=== PATIENT | female | born 1990 | race African-American/Black ===

== ENCOUNTER 2016-12-12 16:56 | Emergency (ER) | payer OTHER ==
[~2016-12-12] VITALS: Ht 175.3 cm; Wt 134.0 kg
[~2016-12-12 16:56] MED LIST: IBUP-232 PO; MACR100C2 PO; NAPR550T3 PO
[2016-12-12 16:58] VITALS: BP 129/66; PULSE 84; RESP 15; TEMP 98.1; O2SAT 98
--- NOTE | 2016-12-12 17:25 | PD ---
HPI Chief Complaint: Skin Problem Time Seen by Provider: 17:25 Travel History International Travel<30 days: No Contact w/Intl Traveler<30days: No Traveled to known affect area: No History of Present Illness HPI 26-year-old Afro-[place] female coming in with approximately one week history of a sore swollen area under the right axilla. Patient states is gotten progressively worse over the past week. Patient denies fever, chills, erythema , or drainage. His approximate size of an almond. Pain today is 6 out of 10. Patient is allergic to penicillin and apples. PFSH Past Medical History Depression: Yes Cardiovascular Problems: Yes (HTN) Diabetes: Yes (BORDERLINE) Diminished Hearing: No Hypertension: Yes Psychiatric: Yes (MOOD DISORDER) Immunizations Current: Yes ?: Not LMP: 12/12/2016 : 0 Social History Alcohol Use: No Tobacco Use: No Substance Use: No Allergies-Medications (Allergen,Severity, Reaction): Coded Allergies: Apple (Verified Allergy, Intermediate, RASH, 12/12/16) All over body Penicillin (Verified Allergy, Intermediate, SWELLING/RASH, 12/12/16) all over body Reported Meds & Prescriptions Reported Meds & Active Scripts Active Naproxen Sodium DS (Naproxen Sodium) 550 Mg Tab 550 Mg PO BID Macrobid (Nitrofurantoin Monoh/Nitrofur Macro) 100 Mg Cap 100 Mg PO BID 5 Days Ibuprofen 600 Mg Tab 600 Mg PO Q8HR PRN Review of Systems Except as stated in HPI: all other systems reviewed are Neg General / Constitutional: No: Fever Eyes: No: Visual changes HENT: No: Headaches Cardiovascular: No: Chest Pain or Discomfort Respiratory: No: Shortness of Breath Gastrointestinal: No: Abdominal Pain Genitourinary: No: Dysuria Musculoskeletal: No: Pain Skin: No Rash Neurologic: No: Weakness Psychiatric: No: Depression Endocrine: No: Polydipsia Hematologic/Lymphatic: No: Easy Bruising Physical Exam Narrative GENERAL: Patient appears no acute distress. SKIN: Warm and dry. Normal color. Normal turgor. Patient has an indurated firm tender lesion under the lower right axilla without significant erythema or pointing. There is no obvious drainage. There is no localized lymphadenopathy. HEAD: Atraumatic. Normocephalic. EYES: Pupils equal and round. No scleral icterus. No injection or drainage. ENT: No nasal bleeding or discharge. Mucous membranes pink and moist. Pharynx is normal. Airway is patent. NECK: Trachea midline. Supple and nontender. CARDIOVASCULAR: Regular rate and rhythm. RESPIRATORY: No accessory muscle use. Clear to auscultation. Breath sounds equal bilaterally. MUSCULOSKELETAL: Extremities without clubbing, cyanosis, or edema. No obvious deformities. NEUROLOGICAL: Awake and alert. No obvious cranial nerve deficits. Motor grossly within normal limits. Five out of 5 muscle strength in the arms and legs. Normal speech. PSYCHIATRIC: Appropriate mood and affect; insight and judgment normal. Data Data Last Documented VS Vital Signs Date Time Temp Pulse Resp B/P Pulse Ox O2 Delivery O2 Flow Rate FiO2 12/12/16 16:58 98.1 84 15 129/66 98 MDM Medical Decision Making Medical Screen Exam Complete: Yes Emergency Medical Condition: Yes Differential Diagnosis Ingrown hair. Folliculitis. Cellulitis. Early abscess. Narrative Course Patient is medically stable at time of exam. Discussed with patient that I feel a trial of antibiotics and anti- inflammatories would be warranted at this time. Discuss with her that this may help consolidate the problem and bring it to a head for drainage. It may also get better without drainage. Patient is understanding this and agrees with that plan. Patient is given Bactrim DS twice a day 7 days. Patient is given ibuprofen 600 mg 4 times a day #40. Patient is to use hot compresses as discussed. Patient follow-up with her primary care physician or return to emergency department if symptoms do not improve or worsen as discussed. Diagnosis Primary Impression: Ingrown hair Patient Instructions: Abscess (ED), Folliculitis (ED), General Instructions Additional Instructions: Discussed with patient that I feel a trial of antibiotics and anti- inflammatories would be warranted at this time. Discuss with her that this may help consolidate the problem and bring it to a head for drainage. It may also get better without drainage. Patient is understanding this and agrees with that plan. Patient is given Bactrim DS twice a day 7 days. Patient is given ibuprofen 600 mg 4 times a day #40. Patient is to use hot compresses as discussed. Patient follow-up with her primary care physician or return to emergency department if symptoms do not improve or worsen as discussed. Med/Other Pt SpecificInfo: Prescription(s) given Disposition: 01 DISCHARGE HOME Condition: Stable Vito Rubyw F. PA Dec 12, 2016 17:25
[2016-12-12] MEDS ORDERED: IBUP-232 PO (17:45)
[2016-12-12] MEDS ORDERED: BACT800T5 PO (17:45)
== END 2016-12-12 18:24 | disposition home or self-care (01) ==
LOC: NEPB 16:56
DX: L73.8 Other specified follicular disorders (principal); I10 Essential (primary) hypertension
CPT/HCPCS: 99283

== ENCOUNTER 2017-03-07 07:14 | Emergency (ER) | payer OTHER ==
[~2017-03-07] VITALS: Ht 175.3 cm; Wt 109.0 kg
[~2017-03-07 07:14] MED LIST changes: +BACT800T5 PO
[2017-03-07 07:16] VITALS: BP 135/80; PULSE 65; RESP 18; TEMP 98.1; O2SAT 98
--- NOTE | 2017-03-07 07:27 | PD ---
HPI . dysuria, pressure and frequency x 2 days Chief Complaint: Complaint Time Seen by Provider: 07:27 Travel History International Travel<30 days: No Contact w/Intl Traveler<30days: No Traveled to known affect area: No History of Present Illness HPI 26-year-old female here with complaints of dysuria, pressure and urinary frequency for the past 2 days. Patient tells me she has had UTIs in the past and her symptoms feel similar. She says 2 days ago she started experiencing some suprapubic pressure and increased urinary frequency. She does admit to some discomfort while urinating. She denies any vaginal discharge. She does not think she is , however tells me that she could potentially be. She has no other complaints. She denies any abdominal pain, nausea, vomiting, fever or chills. PFSH Past Medical History Depression: Yes Cardiovascular Problems: Yes (HTN) Diabetes: Yes (BORDERLINE) Diminished Hearing: No Hypertension: Yes Psychiatric: Yes (MOOD DISORDER) Immunizations Current: Yes ?: Not LMP: 02/27/17 : 0 Social History Alcohol Use: No Tobacco Use: No Substance Use: No Allergies-Medications (Allergen,Severity, Reaction): Coded Allergies: Apple (Verified Allergy, Intermediate, RASH, 03/07/17) All over body Penicillin (Verified Allergy, Intermediate, SWELLING/RASH, 03/07/17) all over body Reported Meds & Prescriptions Reported Meds & Active Scripts Active Macrobid (Nitrofurantoin Monoh/Nitrofur Macro) 100 Mg Cap 100 Mg PO BID 7 Days Review of Systems General / Constitutional: No: Fever Eyes: No: Visual changes HENT: No: Headaches Cardiovascular: No: Chest Pain or Discomfort Respiratory: No: Shortness of Breath Gastrointestinal: No: Abdominal Pain Genitourinary: Positive: Urgency, Frequency, Dysuria Musculoskeletal: No: Pain Skin: No Rash Neurologic: No: Weakness Psychiatric: No: Depression Endocrine: No: Polydipsia Hematologic/Lymphatic: No: Easy Bruising Physical Exam Narrative GENERAL: AAO x 3, no acute distress, Well-nourished, well-developed patient. SKIN: Warm and dry. No visible rashes or bruising. HEAD: Normocephalic and atraumatic. EYES: No scleral icterus. No injection or drainage. ENT: No nasal drainage noted. Airway patent. NECK: Supple, trachea midline. No JVD. CARDIOVASCULAR: Regular rate and rhythm without murmurs, gallops, or rubs. RESPIRATORY: Breath sounds equal bilaterally. No accessory muscle use. No rhonchi or rales. GASTROINTESTINAL: Abdomen soft, nondistended. Mild discomfort in suprapubic area with deep palpation. EXTREMITIES: No cyanosis or edema. BACK: Nontender without obvious deformity. No CVA tenderness. PSYCH: AAO x 3, normal affect. Data Data Last Documented VS Vital Signs Date Time Temp Pulse Resp B/P Pulse Ox O2 Delivery O2 Flow Rate FiO2 03/07/17 07:16 98.1 65 18 135/80 98 Orders Urinalysis - C+S If Indicated (03/07/17 07:27) Ed Urine Pregnancytest Poc (03/07/17 07:27) [facility] Medical Decision Making Medical Screen Exam Complete: Yes Emergency Medical Condition: Yes Medical Record Reviewed: Yes Differential Diagnosis UTI versus overactive bladder versus less likely vaginitis Narrative Course 26-year-old female here with complaints of dysuria, pressure and urinary frequency for the past 2 days. Patient tells me she has had UTIs in the past and her symptoms feel similar. She says 2 days ago she started experiencing some suprapubic pressure and increased urinary frequency. She does admit to some discomfort while urinating. She denies any vaginal discharge. She does not think she is , however tells me that she could potentially be. She has no other complaints. She denies any abdominal pain, nausea, vomiting, fever or chills. Patient seen and examined. She has some suprapubic tenderness on deep palpation , otherwise examination is normal. ED test and urinalysis ordered. Due to the nature of her symptoms I will go ahead and treat with antibiotics. We will notify her if there is a culture that is resistant to the medications I prescribed. Encouraged her to drink fluids. Patient verbalized understanding of instructions, questions were answered, and thanked me for their care. I advised them if their condition worsens, please return to the nearest emergency room for further care. Diagnosis Primary Impression: Dysuria Patient Instructions: Dysuria (ED), General Instructions Additional Instructions: Please return to emergency department if your symptoms return or worsen. Follow up with your primary care provider. Take medications as prescribed. Please follow-up with your primary care provider 7-10 days after completing the antibiotics for a repeat urinalysis. Med/Other Pt SpecificInfo: Prescription(s) given Scripts Nitrofurantoin Monohydrate Macrocrystals (Macrobid)100 Mg Mth049 Mg PO BID 7 Days Prov:Jo Ann Salazar MD 03/07/17 Disposition: 01 DISCHARGE HOME Condition: Stable Renu Shirley Mar 07, 2017 07:27 Renu Shirley Mar 07, 2017 07:27
[2017-03-07] MEDS ORDERED: MACR100C2 PO (07:34)
[2017-03-07 08:13] LABS: BACTERIA, URINE RARE /hpf; BLOOD, URINE MOD (NEG); COMMENT (UR) CULTURE INDICATED; CULTURE IF INDICATED CULTURE INDICATED; GLUCOSE,URINE NEG (NEG); KETONE, URINE NEG (NEG); MUCUS URINE FEW /lpf (OCC); NITRITE,URINE NEG (NEG); SQUAMOUS EPITHELIAL CELL URINE 6 /hpf (0-5); URINE COLOR YELLOW (YELLW/STRAW)
== END 2017-03-07 08:48 | disposition home or self-care (01) ==
LOC: NEPK 07:14
DX: R30.0 Dysuria (principal); R35.0 Frequency of micturition; I10 Essential (primary) hypertension; B96.20 Unspecified Escherichia coli [E. coli] as the cause of diseases classified elsewhere
CPT/HCPCS: 81001; 84703; 87077; 87086; 87186; 99283

== ENCOUNTER 2017-04-27 21:39 | Emergency (ER) | payer OTHER ==
[~2017-04-27] VITALS: Ht 175.3 cm; Wt 135.0 kg
[~2017-04-27 21:39] MED LIST changes: -BACT800T5 PO; -IBUP-232 PO; -NAPR550T3 PO
[2017-04-27 21:51] VITALS: BP 141/77; PULSE 86; RESP 18; TEMP 99; O2SAT 100
[2017-04-27 21:54] VITALS: RESP 18; O2SAT 100
[2017-04-27] MEDS ORDERED: KETOROLAC TROMETHAMINE 30 MG/ML (IVP) VIAL IV PUSH ONE (22:00)
--- NOTE | 2017-04-27 22:00 | PD ---
HPI Chief Complaint: Chest Pain Time Seen by Provider: 21:45 Travel History International Travel<30 days: No Contact w/Intl Traveler<30days: No Traveled to known affect area: No History of Present Illness HPI This patient was examined in the presence of a female nurse. 26-year-old female presents for evaluation of chest pain. Symptoms started 30 minutes prior to arrival while she is in the couch. She describes it as a sharp pain in the center of her chest and back. Pain is worse with movement, inspiration. Denies cough or congestion, recent illness, nausea or vomiting, shortness of breath, fevers or chills, abdominal pain, calf pain or swelling. Denies any recent travel, recent surgery. Her last menstrual period was approximately one month ago. Denies any contraceptive use. Denies any history of coagulopathy, history of DVT or PE. She has no other complaints at this time. PFSH Past Medical History Depression: Yes Cardiovascular Problems: Yes (HTN) Diabetes: Yes (BORDERLINE) Patient Takes Glucophage: No Diminished Hearing: No Hypertension: Yes Psychiatric: Yes (MOOD DISORDER) Immunizations Current: Yes Tetanus Vaccination: < 5 Years Influenza Vaccination: Yes ?: Unknown LMP: 03/30/17 : 0 Past Surgical History Surgical History: No Previous Surgery Social History Alcohol Use: No Tobacco Use: No Substance Use: No Allergies-Medications (Allergen,Severity, Reaction): Coded Allergies: Apple (Verified Allergy, Intermediate, RASH, 04/27/17) All over body Penicillin (Verified Allergy, Intermediate, SWELLING/RASH, 04/27/17) all over body Reported Meds & Prescriptions Reported Meds & Active Scripts Active No Active Prescriptions or Reported Medications Review of Systems Except as stated in HPI: all other systems reviewed are Neg Physical Exam Narrative GENERAL: Well-developed well-nourished female in no acute distress. SKIN: Warm and dry. No rash, no bruising or soft tissue swelling. HEAD: Atraumatic. Normocephalic. EYES: Pupils equal and round. No scleral icterus. No injection or drainage. ENT: No nasal bleeding or discharge. Mucous membranes pink and moist. NECK: Trachea midline. No JVD. CARDIOVASCULAR: Regular rate and rhythm. No murmur appreciated. RESPIRATORY: No accessory muscle use. Clear to auscultation. Breath sounds equal bilaterally. GASTROINTESTINAL: Abdomen soft, non-tender, nondistended. Hepatic and splenic margins not palpable. MUSCULOSKELETAL: No obvious deformities. There is no edema. Negative Homans. She does have reproducible mid chest wall pain on palpation. NEUROLOGICAL: Awake and alert. No obvious cranial nerve deficits. Motor grossly within normal limits. Normal speech. PSYCHIATRIC: Appropriate mood and affect; insight and judgment normal. Data Data Last Documented VS Vital Signs Date Time Temp Pulse Resp B/P Pulse Ox O2 Delivery O2 Flow Rate FiO2 04/27/17:17 86 20 121/76 99 Room Air 04/27/17 21:51 99.0 Orders Electrocardiogram (04/27/17 21:52) Basic Metabolic Panel (Bmp) (04/27/17 21:52) Ckmb (Isoenzyme) Profile (04/27/17 21:52) Complete Blood Count With Diff (04/27/17 21:52) D-Dimer (04/27/17 21:52) Magnesium (Mg) (04/27/17 21:52) Troponin I (04/27/17 21:52) Chest, Single Ap (04/27/17 21:52) Ecg Monitoring (04/27/17 21:52) Iv Access Insert/Monitor (04/27/17 21:52) Oximetry (04/27/17 21:52) Ed Urine Pregnancytest Poc (04/27/17 21:52) Ketorolac Inj (Toradol Inj) (04/27/17 22:00) CKMB (04/27/17 21:50) CKMB% (04/27/17 21:50) Potassium Chloride (Kcl) (04/27/17 22:45) Labs Laboratory Tests Test 04/27/17 21:50 White Blood Count 8.2 TH/MM3 Red Blood Count 4.34 MIL/MM3 Hemoglobin 11.1 GM/DL Hematocrit 34.1 % Mean Corpuscular Volume 78.6 FL Mean Corpuscular Hemoglobin 25.7 PG Mean Corpuscular Hemoglobin 32.7 % Concent Red Cell Distribution Width 16.1 % Platelet Count 291 TH/MM3 Mean Platelet Volume 9.0 FL Neutrophils (%) (Auto) 57.6 % Lymphocytes (%) (Auto) 35.1 % Monocytes (%) (Auto) 5.8 % Eosinophils (%) (Auto) 1.0 % Basophils (%) (Auto) 0.5 % Neutrophils # (Auto) 4.7 TH/MM3 Lymphocytes # (Auto) 2.9 TH/MM3 Monocytes # (Auto) 0.5 TH/MM3 Eosinophils # (Auto) 0.1 TH/MM3 Basophils # (Auto) 0.0 TH/MM3 CBC Comment DIFF FINAL Differential Comment D-Dimer Quantitative (PE/DVT) 0.33 MG/L FEU Sodium Level 139 MEQ/L Potassium Level 3.3 MEQ/L Chloride Level 105 MEQ/L Carbon Dioxide Level 26.2 MEQ/L Anion Gap 8 MEQ/L Blood Urea Nitrogen 10 MG/DL Creatinine 0.63 MG/DL Estimat Glomerular Filtration 140 ML/MIN Rate Random Glucose 94 MG/DL Calcium Level 8.6 MG/DL Magnesium Level 2.0 MG/DL Total Creatine Kinase 130 U/L Troponin I LESS THAN 0.02 NG/ML MDM Medical Decision Making Medical Screen Exam Complete: Yes Emergency Medical Condition: Yes Medical Record Reviewed: Yes Interpretation(s) Chest x-ray EKG sinus rhythm rate 80 CBC BMP Troponin CK ED urine test Differential Diagnosis Pleurisy, costochondritis, pericarditis, myocarditis, pneumothorax, pulmonary embolism Narrative Course This is a 26-year-old female with 1 day history of sharp substernal chest pain that is reproducible with deep inspiration and movement. Plan is for basic lab work, chest x-ray, EKG, and ECG monitoring and pulse oximetry. She will be given Toradol. The patient's laboratory and imaging studies are reviewed. EKG is nonischemic. Chest x-ray is normal. D-dimer is negative. Hemoglobin is 11.1 which appears to be baseline. Urine test is negative. Troponin, CK are normal. BMP reveals a potassium of 3.3 otherwise unremarkable. She'll be given a dose of oral potassium chloride. Upon reexamination the patient reports significant improvement after the administration of Toradol. Her symptoms are consistent with pleurisy. Recommend [id number] NSAIDs for symptom relief. She is stable for discharge. Procedures EKG Prior to Arrival: Yes Diagnosis Primary Impression: Pleurisy Additional Instructions: Use [id number] ibuprofen or naproxen for symptom control. Use per dosing instructions on the bottle. Follow-up with primary care physician. Return for any emergent medical conditions. Med/Other Pt SpecificInfo: No Change to Meds Scripts No Active Prescriptions or Reported Meds Disposition: DISCHARGE HOME Condition: Stable Samson Rogelemy P. PA Apr 27, 2017 22:00
[2017-04-27 22:17] VITALS: BP 121/76; PULSE 86; RESP 20; O2SAT 99
[2017-04-27 22:21] LABS: AUTOMATED NEUTROPHIL # 4.7 TH/MM3 (1.8-7.7); BASOPHIL % 0.5 % (0.0-2.0); EOSINOPHIL # 0.1 TH/MM3 (0-0.4); HEMATOCRIT 34.1 % (35.0-46.0); HEMO FLAGS DIFF FINAL; LYMPH % 35.1 % (9.0-44.0); LYMPHOCYTE # 2.9 TH/MM3 (1.0-4.8); MEAN CELL VOLUME 78.6 FL (80.0-100.0); MEAN CORPUSCULAR HEMOGLOBIN 25.7 PG (27.0-34.0); MEAN CORPUSCULAR HGB CONC 32.7 % (32.0-36.0); MONO % 5.8 % (0.0-8.0); NEUT % 57.6 % (16.0-70.0); PLATELET COUNT 291 TH/MM3 (150-450); RED BLOOD COUNT 4.34 MIL/MM3 (4.00-5.30); RED CELL DISTRIBUTION WIDTH 16.1 % (11.6-17.2); WHITE BLOOD COUNT 8.2 TH/MM3 (4.0-11.0)
[2017-04-27 22:40] LABS: ANION GAP 8 MEQ/L (5-15); BICARBONATE 26.2 MEQ/L (21.0-32.0); BLOOD UREA NITROGEN 10 MG/DL (7-18); CHLORIDE 105 MEQ/L (98-107); GLOMERULAR FILTRATION RATE 140 ML/MIN (>89); POTASSIUM 3.3 MEQ/L (3.5-5.1); SODIUM (NA) 139 MEQ/L (136-145)
[2017-04-27 22:44] LABS: CREATINE KINASE 130 U/L (26-192)
[2017-04-27] MEDS ORDERED: POTASSIUM CHLORIDE 20 MEQ CONTROLLED RELEASE TAB PO ONE (22:45)
--- NOTE | 2017-04-27 22:45 | RADRPT ---
EXAM DATE/TIME: 04/27/2017 22:04 [facility] COMPARISON: No previous studies available for comparison. INDICATIONS : Chest pain. MEDICAL HISTORY : None. SURGICAL HISTORY : None. ENCOUNTER: Initial ACUITY: 1 day PAIN SCORE: 10/10 LOCATION: Bilateral chest FINDINGS: A single view of the chest demonstrates the lungs to be symmetrically aerated without evidence of mas s, infiltrate or effusion. The cardiomediastinal contours are unremarkable. Osseous structures are intact. CONCLUSION: No acute disease. Tan Curiel MD on April 27, 2017 at 22:42 Board Certified Radiologist. This report was verified electronically.
[2017-04-27 22:56] LABS: CKMB 0.6 NG/ML (0.5-3.6)
[2017-04-27 23:27] VITALS: BP 122/70
--- NOTE | 2017-04-28 10:05 | EKG ---
Date Performed: 04/27/2017 Time Performed: 21:49:21 PTAGE: 26 years EKG: Sinus rhythm NORMAL ECG NO PREVIOUS TRACING DOCTOR: Kulwant Sen Interpretating Date/Time 04/28/2017 10:03:13
== END 2017-04-27 23:59 | disposition home or self-care (01) ==
LOC: NEPE 21:39
DX: R09.1 Pleurisy (principal); I10 Essential (primary) hypertension; R73.03 Prediabetes; Z86.59 Personal history of other mental and behavioral disorders; Z86.79 Personal history of other diseases of the circulatory system
CPT/HCPCS: 71010; 80048; 82550; 82552; 83735; 84484; 84703; 85025; 85379; 93005; 96374; 99285; J1885

== ENCOUNTER 2017-06-07 11:36 | Emergency (ER) | payer OTHER ==
[~2017-06-07] VITALS: Ht 175.3 cm; Wt 134.1 kg
[2017-06-07 11:44] VITALS: BP 137/82; PULSE 89; RESP 15; TEMP 99.3; O2SAT 99
[2017-06-07 11:48] VITALS: BP 132/65; PULSE 90; RESP 15; TEMP 99.3; O2SAT 99
--- NOTE | 2017-06-07 12:01 | PD ---
HPI Chief Complaint: Cold / Flu Symptoms Time Seen by Provider: 11:58 Travel History International Travel<30 days: No Contact w/Intl Traveler<30days: No Traveled to known affect area: No History of Present Illness HPI 26-year-old female presents to the emergency department via EMS for evaluation of midsternal sharp chest pain that started intermittently last night. She states is exacerbated by movement, coughing. Patient states that she recently took a test which was positive. She states her last menstrual cycle was April 05, 2017. She has not followed up with an time recorder. She states that she had a low-grade fever, 99.5 yesterday. She reports a cough and sore throat. Patient denies any abdominal pain. She states she is nauseated. She denies any abnormal vaginal discharge or bleeding. No leakage of fluid. Patient is a G1, P0. Patient was seen here on April 27, 2017 for chest pain and was diagnosed with pleurisy. She had a negative workup at that time including a negative d-dimer and negative troponin. She denies any cardiac history herself. She is not currently on any prescribed medications. She states she is borderline diabetic, but is controlled with diet. She denies any significant family history of sudden cardiac before the age of 40. She denies any leg swelling. No history DVT or PE. No recent surgery or travel. No hemoptysis. PFSH Past Medical History Medical History: Denies Significant Hx Depression: Yes Cardiovascular Problems: Yes (HTN) Diabetes: Yes (BORDERLINE) Diminished Hearing: No Hypertension: Yes Psychiatric: Yes (MOOD DISORDER) Immunizations Current: Yes Tetanus Vaccination: < 5 Years ?: : 0 Past Surgical History Surgical History: No Previous Surgery Social History Alcohol Use: No Tobacco Use: No Substance Use: No Allergies-Medications (Allergen,Severity, Reaction): Coded Allergies: Apple (Verified Allergy, Intermediate, RASH, 06/07/17) All over body Penicillin (Verified Allergy, Intermediate, SWELLING/RASH, 06/07/17) all over body Reported Meds & Prescriptions Reported Meds & Active Scripts Active No Active Prescriptions or Reported Medications Review of Systems Except as stated in HPI: all other systems reviewed are Neg Physical Exam Narrative GENERAL: Well-nourished, well-developed female patient, ambulatory. Afebrile. SKIN: Focused skin assessment warm/dry. HEAD: Normocephalic. Atraumatic. ENT: Mucosa pink and moist. Bilateral tonsils are 1-2+ with erythema, but no exudates. No uvular edema. No uvular, palatal, or tonsillar deviation. Airway patent. Nasal turbinates appear normal without nasal blood, purulent drainage or septal hematoma. Bilateral tympanic membranes are clear without erythema or perforation. EYES: No scleral icterus. No injection or drainage. NECK: Supple, trachea midline. No JVD or lymphadenopathy. CARDIOVASCULAR: Regular rate and rhythm without murmurs, gallops, or rubs. RESPIRATORY: Breath sounds equal bilaterally. No accessory muscle use. Lungs sounds are clear to auscultation GASTROINTESTINAL: Abdomen soft, non-tender, nondistended. MUSCULOSKELETAL: No cyanosis, or edema. Midsternal chest pain is easily reproducible with palpation. This pain is also exacerbated when the patient sits up. BACK: Nontender without obvious deformity. No CVA tenderness. Data Data Last Documented VS Vital Signs Date Time Temp Pulse Resp B/P Pulse Ox O2 Delivery O2 Flow Rate FiO2 06/07/17 11:48 90 15 99 Room Air 06/07/17 11:48 99.3 132/65 2 Orders Chest, Single Ap (06/07/17 ) Group A Rapid Strep Screen (06/07/17 11:56) Ed Urine Pregnancytest Poc (06/07/17 11:56) Electrocardiogram (06/07/17 ) Acetaminophen (Tylenol) (06/07/17 12:15) Strep Culture (Group A) (06/07/17 11:55) MDM Medical Decision Making Medical Screen Exam Complete: Yes Emergency Medical Condition: Yes Medical Record Reviewed: Yes Interpretation(s) Last Impressions Chest X-Ray 06/07/17 0000 Signed Impressions: Service Date/Time: Wednesday, June 07, 2017 12:18 - CONCLUSION: No acute cardiopulmonary disease. Corrine Barahona MD Differential Diagnosis Chest wall pain versus pleurisy versus pneumonia versus strep pharyngitis versus viral URI Narrative Course 26-year-old female presents to the emergency department for evaluation of intermittent sharp midsternal chest pain exacerbated with movement coughing that started intermittently last night as well as sore throat and cough. She also reports that she recently found out she was , but denies any abdominal pain, vaginal bleeding, vaginal discharge. EKG shows sinus rhythm, heart rate 84, no acute ST changes. Chest x-ray and strep swab are ordered and pending. Patient is given Tylenol 650 mg by mouth for pain. Strep is negative. CXR shows no acute cardiopulmonary disease. Physical exam is reassuring. Symptoms and physical are most consistent with chest wall pain, viral URI. She is instructed established with an time recorder for her new . She denies any complications at this time. She is take Tylenol every 4 hours as needed and follow-up with her primary care physician. She is instructed to return immediately for any worsening symptoms. She verbalizes agreement and understanding. The patient was discharged in stable condition with instructions, including return instructions and follow up instructions. Diagnosis Primary Impression: Chest wall pain Additional Impression: Viral upper respiratory infection Referrals: Primary Care Physician call for appointment Patient Instructions: Chest Wall Pain (ED), General Instructions, Upper Respiratory Infection (ED) Additional Instructions: Tylenol every 4 hours as needed for pain/fever. Establish an time recorder for new . Follow-up with your primary care physician. Return to the emergency department for any acute worsening of symptoms. Med/Other Pt SpecificInfo: No Change to Meds Scripts No Active Prescriptions or Reported Meds Disposition: 01 DISCHARGE HOME Condition: Stable Sumaya Blake KIRK Jun 07, 2017 12:01
[2017-06-07] MEDS ORDERED: ACETAMINOPHEN 325 MG TAB PO ONE (12:15)
--- NOTE | 2017-06-07 13:07 | RADRPT ---
EXAM DATE/TIME: 06/07/2017 12:18 [facility] COMPARISON: CHEST SINGLE AP, April 27, 2017, 22:04. INDICATIONS : Chest pain for one month, no shortness of breath MEDICAL HISTORY : None. SURGICAL HISTORY : None. ENCOUNTER: Initial ACUITY: 1 month PAIN SCORE: 8/10 LOCATION: Bilateral chest FINDINGS: The lungs are clear without infiltrate, nodule, or mass. There is no appreciable pleural effusion fo r technique. Heart and mediastinum are unremarkable. CONCLUSION: No acute cardiopulmonary disease. Corrine Barahona MD on June 07, 2017 at 13:05 Board Certified Radiologist. This report was verified electronically.
--- NOTE | 2017-06-08 13:55 | EKG ---
Date Performed: 06/07/2017 Time Performed: 11:46:56 PTAGE: 26 years EKG: Sinus rhythm WITH SINUS ARRHYTHMIA Since previous tracing, no significant change noted NORMAL ECG PREVIOUS TRACING : 04/27/2017 21.49 DOCTOR: Gunnar Nino Interpretating Date/Time 06/08/2017 13:55:02
== END 2017-06-07 14:04 | disposition home or self-care (01) ==
LOC: NEPE 11:36
DX: R07.89 Other chest pain (principal); J06.9 Acute upper respiratory infection, unspecified; B95.0 Streptococcus, group A, as the cause of diseases classified elsewhere; Z88.0 Allergy status to penicillin
CPT/HCPCS: 71010; 84703; 87081; 87880; 93005; 99285

== ENCOUNTER 2017-06-14 21:59 | Emergency (ER) | payer OTHER ==
[~2017-06-14] VITALS: Ht 175.3 cm; Wt 135.0 kg
[2017-06-14 22:00] VITALS: BP 166/87; PULSE 106; RESP 18; TEMP 99.4; O2SAT 97
--- NOTE | 2017-06-14 22:43 | PD ---
Physical Exam Date Seen by Provider: Jun 14, 2017 Time Seen by Provider: 22:41 Narrative 26 y/o female with Hx of 13 week presents with Nausea and Lower abdominal cramping. Denies Vaginal bleeding. Pain now 10/10. No Fever. Protocols ordered. Vital signs reviewed. Patient stable. Awaiting Bed placement. Data Data Last Documented VS Vital Signs Date Time Temp Pulse Resp B/P Pulse Ox O2 Delivery O2 Flow Rate FiO2 06/14/17 22:00 99.4 106 18 166/87 97 Room Air [facility] Medical Record Reviewed: Yes Supervised Visit with ANDRIA: Yes Scripts No Active Prescriptions or Reported Meds Condition: Stable Jose Ruby Jun 14, 2017 22:43
[2017-06-14 23:20] LABS: BLOOD, URINE SMALL (NEG); GLUCOSE,URINE NEG (NEG); KETONE, URINE NEG (NEG); MUCUS URINE FEW /lpf (OCC); NITRITE,URINE NEG (NEG); SQUAMOUS EPITHELIAL CELL URINE 21 /hpf (0-5); URINE COLOR YELLOW (YELLW/STRAW)
[2017-06-14 23:22] LABS: AUTOMATED NEUTROPHIL # 5.1 TH/MM3 (1.8-7.7); BASOPHIL % 0.3 % (0.0-2.0); EOSINOPHIL % 0.5 % (0.0-4.0); HEMATOCRIT 34.1 % (35.0-46.0); HEMO FLAGS DIFF FINAL; LYMPH % 31.9 % (9.0-44.0); LYMPHOCYTE # 2.7 TH/MM3 (1.0-4.8); MEAN CELL VOLUME 79.7 FL (80.0-100.0); MEAN CORPUSCULAR HEMOGLOBIN 26.3 PG (27.0-34.0); MEAN CORPUSCULAR HGB CONC 33.1 % (32.0-36.0); MONO % 6.3 % (0.0-8.0); PLATELET COUNT 291 TH/MM3 (150-450); RED BLOOD COUNT 4.28 MIL/MM3 (4.00-5.30); RED CELL DISTRIBUTION WIDTH 15.1 % (11.6-17.2); WHITE BLOOD COUNT 8.4 TH/MM3 (4.0-11.0)
[2017-06-14 23:45] LABS: ANION GAP 8 MEQ/L (5-15); AST (GOT) 12 U/L (15-37); BICARBONATE 24.4 MEQ/L (21.0-32.0); BLOOD UREA NITROGEN 11 MG/DL (7-18); CHLORIDE 103 MEQ/L (98-107); GLOMERULAR FILTRATION RATE 231 ML/MIN (>89); POTASSIUM 3.4 MEQ/L (3.5-5.1); SODIUM (NA) 135 MEQ/L (136-145)
[2017-06-14 23:46] LABS: ALT (GPT) 19 U/L (10-53)
[2017-06-15 00:03] LABS: ALKALINE PHOSPHATASE 59 U/L (45-117); BETA HCG QUANT 54837 MIU/ML (0-5); TOTAL BILIRUBIN ADULT LESS THAN 0.1 MG/DL (0.2-1.0)
[2017-06-15] MEDS ORDERED: ONDANSETRON HCL 4 MG/2 ML VIAL IV ONE (00:15)
[2017-06-15] MEDS ORDERED: cefTRIAXone INJ 1,000 MG in SODIUM CHLORIDE 0.9% INJ 100 ML IV ONE (00:15)
[2017-06-15] MEDS ORDERED: SODIUM CHLOR 0.9% 1000 ML INJ 1,000 ML IV ONE (00:15)
--- NOTE | 2017-06-15 01:05 | PD ---
HPI Chief Complaint: Related Problem Time Seen by Provider: 00:10 Travel History International Travel<30 days: No Contact w/Intl Traveler<30days: No Traveled to known affect area: No History of Present Illness HPI The patient is a 26 year old female who presents to the [facility] emergency department with a history of lower abdominal cramping that she reports began 2 hours prior to arrival. The patient reports that she is currently at a suspected 13 weeks gestation based on her last menstrual cycle. She has not had an initial ultrasound. She has an appointment scheduled with her new [employer] REPAIRER for this week. She denies having any vaginal discharge or vaginal bleeding. She reports that she's had urinary frequency without dysuria or urinary urgency. She reports that this is her first . She is unsure of her blood type. On review of systems, the patient denies any recent fevers, cough, congestion, neck pain, chest pain, shortness of breath, vomiting, diarrhea, or neurologic symptoms. LMP: 04/05/17 [employer]OWER REPAIRER: SELWYN PAGAN Past Medical History Narrative Medical The patient's past medical history is significant for borderline diabetes, hypertension, depression. Depression: Yes Cardiovascular Problems: Yes (HTN) Diabetes: Yes (BORDERLINE) Patient Takes Glucophage: No Diminished Hearing: No Hypertension: Yes Psychiatric: Yes (MOOD DISORDER) Immunizations Current: Yes ?: LMP: 06/05/17 : 0 Past Surgical History Narrative Surgical The patient's past surgical history is reportedly none. Social History Alcohol Use: No Tobacco Use: No Substance Use: No Allergies-Medications (Allergen,Severity, Reaction): Coded Allergies: Apple (Verified Allergy, Intermediate, RASH, 06/14/17) All over body Penicillin (Verified Allergy, Intermediate, SWELLING/RASH, 06/14/17) all over body Reported Meds & Prescriptions Reported Meds & Active Scripts Active No Active Prescriptions or Reported Medications Review of Systems Except as stated in HPI: all other systems reviewed are Neg General / Constitutional: No: Fever Eyes: No: Visual changes HENT: No: Headaches Cardiovascular: No: Chest Pain or Discomfort Respiratory: No: Shortness of Breath Gastrointestinal: Positive: Abdominal Pain, No: Nausea, Vomiting, Diarrhea Genitourinary: Positive: Frequency, Pelvic Pain, No: Urgency, Dysuria, Vaginal Bleeding Musculoskeletal: No: Pain Skin: No Rash Neurologic: No: Weakness Psychiatric: No: Depression Endocrine: No: Polydipsia Hematologic/Lymphatic: No: Easy Bruising Physical Exam Narrative General: The patient is well-developed well-nourished female in no acute distress. Head and Neck exam: Head is normocephalic atraumatic. Eyes: EOMI, pupils are equal round and reactive to light. Nose: Midline septum with pink mucous membranes Mouth: Dentition unremarkable. Moist mucus membranes. Posterior oropharynx is not erythematous. No tonsillar hypertrophy. Uvula midline. Airway patent. Neck: No palpable lymphadenopathy. No nuchal rigidity. No thyromegaly. Cardiovascular: Regular rate and rhythm without murmurs, gallops, or rubs. Lungs: Clear to auscultation bilaterally. No wheezes, rhonchi, or rales. Abdomen: Soft, without tenderness to palpation in all 4 quadrants of the abdomen. No guarding, rebound, or rigidity. No tenderness on palpation of McBurney's point. Negative Fitzpatrick's sign. Extremities: No clubbing, cyanosis, or edema. 2+ pulses in all 4 extremities. No calf tenderness on palpation. Back: No costovertebral angle tenderness to palpation. Neurologic Exam: Grossly nonfocal. Skin Exam: No rash noted. Intact skin that is warm and dry. Gynecologic exam: The patient was placed in the dorsal lithotomy position. Her external genitalia were examined. She had no evidence of rash or lesions. The speculum was placed into her vagina and the cervix was identified. She had a physiologic appearing clear white discharge. No cervical friability. On Bimanual exam: she has no cervical motion tenderness. No adnexal tenderness or prominence noted on palpation. No uterine tenderness, however her uterus is palpated to be enlarged consistent with . Data Data Last Documented VS Vital Signs Date Time Temp Pulse Resp B/P Pulse Ox O2 Delivery O2 Flow Rate FiO2 06/15/17 00:13 20 06/14/17 22:00 99.4 106 166/87 97 Room Air Orders Beta Hcg (Quant/Titer) (06/14/17 22:43) Complete Blood Count With Diff (06/14/17 22:43) Comprehensive Metabolic Panel (06/14/17 22:43) Ua Includes Microscopic (06/14/17 22:43) Ed Urine Pregnancytest Poc (06/14/17 22:43) Sodium Chlor 0.9% 1000 Ml Inj (Ns 1000 M (06/15/17 00:15) Ondansetron Inj (Zofran Inj) (06/15/17 00:15) Ceftriaxone Inj (Rocephin Inj) (06/15/17 00:15) Gc And Chlamydia Pcr (06/15/17 00:11) Complete Rh (06/15/17 00:11) Wet Prep Profile (06/15/17 00:11) Ed Poc Ultrasound (06/15/17 ) Labs Laboratory Tests Test 06/14/17 06/14/17 06/15/17 06/15/17 22:46 22:54 00:40 01:02 Urine Color YELLOW Urine Turbidity HAZY Urine pH 6.0 Urine Specific [employer] 1.029 Urine Protein TRACE mg/dL Urine Glucose (UA) NEG mg/dL Urine Ketones NEG mg/dL Urine Occult Blood SMALL Urine Nitrite NEG Urine Bilirubin NEG Urine Urobilinogen LESS THAN 2.0 MG/DL Urine Leukocyte Esterase MOD Urine RBC 4 /hpf Urine WBC 17 /hpf Urine Squamous Epithelial 21 /hpf Cells Urine Amorphous Sediment RARE Urine Mucus FEW /lpf White Blood Count 8.4 TH/MM3 Red Blood Count 4.28 MIL/MM3 Hemoglobin 11.3 GM/DL Hematocrit 34.1 % Mean Corpuscular Volume 79.7 FL Mean Corpuscular Hemoglobin 26.3 PG Mean Corpuscular Hemoglobin 33.1 % Concent Red Cell Distribution Width 15.1 % Platelet Count 291 TH/MM3 Mean Platelet Volume 8.2 FL Neutrophils (%) (Auto) 61.0 % Lymphocytes (%) (Auto) 31.9 % Monocytes (%) (Auto) 6.3 % Eosinophils (%) (Auto) 0.5 % Basophils (%) (Auto) 0.3 % Neutrophils # (Auto) 5.1 TH/MM3 Lymphocytes # (Auto) 2.7 TH/MM3 Monocytes # (Auto) 0.5 TH/MM3 Eosinophils # (Auto) 0.0 TH/MM3 Basophils # (Auto) 0.0 TH/MM3 CBC Comment DIFF FINAL Differential Comment Sodium Level 135 MEQ/L Potassium Level 3.4 MEQ/L Chloride Level 103 MEQ/L Carbon Dioxide Level 24.4 MEQ/L Anion Gap 8 MEQ/L Blood Urea Nitrogen 11 MG/DL Creatinine 0.41 MG/DL Estimat Glomerular Filtration 231 ML/MIN Rate Random Glucose 97 MG/DL Calcium Level 9.1 MG/DL Total Bilirubin LESS THAN 0.1 MG/DL Aspartate Amino Transf 12 U/L (AST/SGOT) Alanine Aminotransferase 19 U/L (ALT/SGPT) Alkaline Phosphatase 59 U/L Total Protein 7.8 GM/DL Albumin 3.5 GM/DL Human Chorionic Gonadotropin, 74479 MIU/ML Quant Blood Type O POSITIVE Rho(D) Type POSITIVE Clue Cells (Wet Prep) PRESENT Vaginal Trichomonas (Wet Prep) NONE SEEN Vaginal Yeast (Wet Prep) NONE SEEN MDM Medical Decision Making Medical Screen Exam Complete: Yes Emergency Medical Condition: Yes Medical Record Reviewed: Yes Differential Diagnosis Threatened miscarriage, versus ectopic , versus urinary tract infection Narrative Course During the course of the patients emergency department visit, the patients history, examination, and differential diagnosis were reviewed with the patient. The patient had IV access obtained and blood work sent for analysis. The patient was placed on a shift superintendent with oximetry and blood pressure monitoring. The patient was initially provided normal saline 1 L IV fluid bolus, Zofran 4 mg IV, urinalysis is suspicious for a urinary tract infection and the patient was given Rocephin 1 g IV. The patients laboratory studies were reviewed and remarkable for a white count of 8.4, hemoglobin 11.3, platelets 291 with a normal differential. CMP is remarkable for sodium of 135, potassium 3.4, creatinine 0.41, total bilirubin less than 0.1, AST 12, monitor data beta hCG 54,837, urinalysis shows moderate leukocyte esterase rbc's 4, 17 WBCs, 21 squamous epithelial cells, with is positive for clue cell. The patient will be treated with clindamycin for bacterial vaginosis. A bedside ultrasound reveals heart activity active fetus on examination, intrauterine . The patient is resting comfortably and feels better, is alert and in no distress. The patients results and examination findings were discussed with the patient. The repeat examination is unremarkable and benign. The history, exam, diagnostic testing, and current condition do not suggest any significant pathology to warrant further testing, continued ED treatment, admission, or surgical evaluation at this point. The vital signs have been stable. The patient does not have uncontrollable pain, intractable vomiting, or other significant symptoms. The patient's condition is stable and appropriate for discharge. The patient will pursue further outpatient evaluation with a primary care physician or other designated or consulting physician as indicated in the discharge instructions. The patient expressed understanding and was agreeable with this plan. Procedures Procedure Narrative Emergency Department Pelvic ultrasound was performed with patient consent. The curvilinear probe was used in the transverse and sagittal views within the suprapubic region revealing a single intrauterine . The patient has an active fetus noted on examination. heart rate was 179. Diagnosis Primary Impression: Abdominal pain affecting Additional Impression: Bacterial vaginosis Referrals: [facility] 3 days Patient Instructions: Abdominal Pain in (ED), Bacterial Vaginosis ( ED), General Instructions Med/Other Pt SpecificInfo: Prescription(s) given Scripts Clindamycin 300 Mg [id number] Mg PO BID 7 Days Ref 0 Prov:Jennifer Arndt MD 06/15/17 Disposition: 01 DISCHARGE HOME Condition: Stable Jennifer Arndt MD Jun 15, 2017 01:05
[2017-06-15] MEDS ORDERED: CLIN1CAP6 PO (02:49)
[2017-06-15 03:25] LABS: CHLAMYDIA PCR DETECTED (NOT DETECT); NEISSERIA PCR NOT DETECTED (NOT DETECT)
== END 2017-06-15 03:05 | disposition home or self-care (01) ==
LOC: NEPE 21:59
DX: O23.591 Infection of other part of genital tract in pregnancy, first trimester (principal); N76.0 Acute vaginitis; B96.89 Other specified bacterial agents as the cause of diseases classified elsewhere; O16.1 Unspecified maternal hypertension, first trimester; O99.89 Other specified diseases and conditions complicating pregnancy, childbirth and the puerperium; R73.03 Prediabetes; O99.341 Other mental disorders complicating pregnancy, first trimester; F39 Unspecified mood [affective] disorder; Z3A.13 13 weeks gestation of pregnancy
CPT/HCPCS: 80053; 81001; 84702; 84703; 85025; 86901; 87210; 87491; 87591; 96365; 96375; 99285; J0696; J2405; J7030

== ENCOUNTER 2017-06-28 13:39 | Emergency (ER) | payer OTHER ==
[~2017-06-28] VITALS: Ht 175.3 cm; Wt 115.0 kg
[~2017-06-28 13:39] MED LIST changes: +CLIN1CAP6 PO; -MACR100C2 PO
[2017-06-28 14:05] VITALS: BP 122/73; PULSE 112; RESP 20; TEMP 99.1; O2SAT 98
--- NOTE | 2017-06-28 15:35 | PD ---
Physical Exam Date Seen by Provider: Jun 28, 2017 Time Seen by Provider: 15:32 Narrative 26 y/o female who here with Abd pain and spotting this am. LMP April 05. Patient 12 weeks . Has some white Vaginal Discharge. Denies Urinary symptoms. Nausea and Vomiting x2 this am. Labs Ordered. Vital Signs reviewed. Patient is Stable and awaiting Bed Placement. Data Data Last Documented VS Vital Signs Date Time Temp Pulse Resp B/P (MAP) Pulse Ox O2 Delivery O2 Flow Rate FiO2 06/28/17 14:05 99.1 112 20 122/73 (89) 98 Room Air [facility] Medical Record Reviewed: Yes Supervised Visit with ANDRIA: Yes Condition: Stable Jose Ruby Jun 28, 2017 15:35
[2017-06-28 16:54] LABS: BLOOD, URINE SMALL (NEG); COMMENT (UR) CULTURE INDICATED; CULTURE IF INDICATED CULTURE INDICATED; GLUCOSE,URINE NEG (NEG); KETONE, URINE NEG (NEG); MUCUS URINE FEW /lpf (OCC); NITRITE,URINE NEG (NEG); SQUAMOUS EPITHELIAL CELL URINE 4 /hpf (0-5); URINE COLOR YELLOW (YELLW/STRAW)
[2017-06-28 17:02] LABS: AUTOMATED NEUTROPHIL # 5.3 TH/MM3 (1.8-7.7); BASOPHIL % 0.1 % (0.0-2.0); EOSINOPHIL # 0.1 TH/MM3 (0-0.4); EOSINOPHIL % 0.7 % (0.0-4.0); HEMATOCRIT 35.5 % (35.0-46.0); HEMO FLAGS DIFF FINAL; LYMPH % 27.2 % (9.0-44.0); LYMPHOCYTE # 2.2 TH/MM3 (1.0-4.8); MEAN CELL VOLUME 80.6 FL (80.0-100.0); MEAN CORPUSCULAR HEMOGLOBIN 26.1 PG (27.0-34.0); MEAN CORPUSCULAR HGB CONC 32.3 % (32.0-36.0); MONO % 6.3 % (0.0-8.0); NEUT % 65.7 % (16.0-70.0); PLATELET COUNT 326 TH/MM3 (150-450); RED CELL DISTRIBUTION WIDTH 15.5 % (11.6-17.2)
[2017-06-28 17:12] VITALS: BP 136/62; PULSE 99; RESP 19; TEMP 99.5; O2SAT 99
[2017-06-28 17:27] LABS: ANION GAP 9 MEQ/L (5-15); AST (GOT) 17 U/L (15-37); BICARBONATE 25.1 MEQ/L (21.0-32.0); BLOOD UREA NITROGEN 8 MG/DL (7-18); CHLORIDE 101 MEQ/L (98-107); GLOMERULAR FILTRATION RATE 224 ML/MIN (>89); POTASSIUM 3.5 MEQ/L (3.5-5.1); SODIUM (NA) 135 MEQ/L (136-145)
[2017-06-28 17:28] LABS: ALT (GPT) 21 U/L (10-53)
[2017-06-28] MEDS ORDERED: CEPHALEXIN MONOHYDRATE 500 MG CAP PO ONE (17:30)
[2017-06-28] MEDS ORDERED: CEPH-460 PO (17:34)
--- NOTE | 2017-06-28 17:35 | PD ---
HPI Chief Complaint: Related Problem Time Seen by Provider: 17:08 Travel History International Travel<30 days: No Contact w/Intl Traveler<30days: No Traveled to known affect area: No History of Present Illness HPI 33-year-old female 1 para 0 with vaginal discharge since this morning, white, odorless, trace associated bleed, known to be approximately 12 weeks . Mild pruritus reported. No fever. No nausea vomiting. Patient reports undergoing treatment for [facility]lam[facility] about 10 days ago. She has been sexually inactive since. Our records reveal a chlamydia screen positive for Chlamydia which led to the health department visit. PFSH Past Medical History Depression: Yes Cardiovascular Problems: Yes (HTN) Diabetes: Yes (BORDERLINE) Patient Takes Glucophage: No Diminished Hearing: No Hypertension: Yes Psychiatric: Yes (MOOD DISORDER) Immunizations Current: Yes ?: LMP: 04/05/17 : 0 Past Surgical History Surgical History: No Previous Surgery Social History Alcohol Use: No Tobacco Use: No Substance Use: No Allergies-Medications (Allergen,Severity, Reaction): Coded Allergies: apple (Unverified Allergy, Intermediate, RASH, 06/28/17) All over body penicillin G (Unverified Allergy, Intermediate, SWELLING/RASH, 06/28/17) all over body Reported Meds & Prescriptions Reported Meds & Active Scripts Active Keflex (Cephalexin) 500 Mg Cap 500 Mg PO Q12H 5 Days Review of Systems Except as stated in HPI: all other systems reviewed are Neg Physical Exam Narrative GENERAL: 26 yo F WNWD, NAD : WD. No VB. + CMT. No adnexal mass/tenderness. SKIN: Warm and dry. HEAD: Atraumatic. Normocephalic. EYES: Pupils equal and round. No scleral icterus. No injection or drainage. ENT: No nasal bleeding or discharge. Mucous membranes pink and moist. NECK: Trachea midline. No JVD. CARDIOVASCULAR: Regular rate and rhythm. RESPIRATORY: No accessory muscle use. Clear to auscultation. Breath sounds equal bilaterally. GASTROINTESTINAL: Abdomen soft, non-tender, nondistended. Hepatic and splenic margins not palpable. MUSCULOSKELETAL: Extremities without clubbing, cyanosis, or edema. No obvious deformities. NEUROLOGICAL: Awake and alert. No obvious cranial nerve deficits. Motor grossly within normal limits. Five out of 5 muscle strength in the arms and legs. Normal speech. PSYCHIATRIC: Appropriate mood and affect; insight and judgment normal. Data Data Last Documented VS Vital Signs Date Time Temp Pulse Resp B/P (MAP) Pulse Ox O2 Delivery O2 Flow Rate FiO2 06/28/17 17:12 18 06/28/17 17:12 99.5 99 136/62 (86) 99 Room Air VS reivewed Orders Orders Beta Hcg (Quant/Titer) (06/28/17 15:35) Complete Blood Count With Diff (06/28/17 15:35) Comprehensive Metabolic Panel (06/28/17 15:35) Urinalysis - C+S If Indicated (06/28/17 15:35) Urine Culture (06/28/17 16:05) Cephalexin (Keflex) (06/28/17 17:30) Wet Prep Profile (06/28/17 17:47) Metronidazole (Flagyl) (06/28/17 18:00) Labs Laboratory Tests Test 06/28/17 16:05 06/28/17 17:22 White Blood Count 8.0 TH/MM3 Red Blood Count 4.40 MIL/MM3 Hemoglobin 11.5 GM/DL Hematocrit 35.5 % Mean Corpuscular Volume 80.6 FL Mean Corpuscular Hemoglobin 26.1 PG Mean Corpuscular Hemoglobin Concent 32.3 % Red Cell Distribution Width 15.5 % Platelet Count 326 TH/MM3 Mean Platelet Volume 8.5 FL Neutrophils (%) (Auto) 65.7 % Lymphocytes (%) (Auto) 27.2 % Monocytes (%) (Auto) 6.3 % Eosinophils (%) (Auto) 0.7 % Basophils (%) (Auto) 0.1 % Neutrophils # (Auto) 5.3 TH/MM3 Lymphocytes # (Auto) 2.2 TH/MM3 Monocytes # (Auto) 0.5 TH/MM3 Eosinophils # (Auto) 0.1 TH/MM3 Basophils # (Auto) 0.0 TH/MM3 CBC Comment DIFF FINAL Differential Comment Urine Color YELLOW Urine Turbidity HAZY Urine pH 6.0 Urine Specific [place] 1.031 Urine Protein 30 mg/dL Urine Glucose (UA) NEG mg/dL Urine Ketones NEG mg/dL Urine Occult Blood SMALL Urine Nitrite NEG Urine Bilirubin NEG Urine Urobilinogen LESS THAN 2.0 MG/DL Urine Leukocyte Esterase MOD Urine RBC 5 /hpf Urine WBC 12 /hpf Urine Squamous Epithelial Cells 4 /hpf Urine Amorphous Sediment RARE Urine Mucus FEW /lpf Microscopic Urinalysis Comment CULTURE INDICATED Blood Urea Nitrogen 8 MG/DL Creatinine 0.42 MG/DL Random Glucose 77 MG/DL Total Protein 8.0 GM/DL Albumin 3.5 GM/DL Calcium Level 9.4 MG/DL Alkaline Phosphatase 65 U/L Aspartate Amino Transf (AST/SGOT) 17 U/L Alanine Aminotransferase (ALT/SGPT) 21 U/L Total Bilirubin 0.1 MG/DL Sodium Level 135 MEQ/L Potassium Level 3.5 MEQ/L Chloride Level 101 MEQ/L Carbon Dioxide Level 25.1 MEQ/L Anion Gap 9 MEQ/L Estimat Glomerular Filtration Rate 224 ML/MIN Human Chorionic Gonadotropin, Quant 54940 MIU/ML Clue Cells (Wet Prep) NONE SEEN Vaginal Trichomonas (Wet Prep) PRESENT Vaginal Yeast (Wet Prep) NONE SEEN MDM Medical Decision Making Medical Screen Exam Complete: Yes Emergency Medical Condition: Yes Medical Record Reviewed: Yes Differential Diagnosis IUP, UTI, ectopic , ov torsion, appendicitis, TOA, cervicitis, BV, Trichomoniasis, ov cyst, hernia, mittelschmerz, pain from menstruation Narrative Course CBC & BMP Diagram 06/28/17 16:05 Total Protein 8.0, Albumin 3.5, Calcium Level 9.4, Alkaline Phosphatase 65, Aspartate Amino Transf (AST/SGOT) 17, Alanine Aminotransferase (ALT/SGPT) 21, Total Bilirubin 0.1 L Beta HCG 47,761 UA: UTI present Wet Prep: + Trichomoniasis Positive CMT on pelvic exam. A repeat dose of azithromycin has been ordered as the patient tested positive for chlamydia previously. We'll provide Keflex for the UTI and a dose of Flagyl therefore the trichomoniasis. Pelvic precautions discussed. Coverage for sexual partner discussed. The patient verbalizes understanding. Diagnosis Primary Impression: Cystitis Additional Impression: Normal IUP (intrauterine ) on ultrasound Qualified Codes: Z34.91 - Encounter for supervision of normal , unspecified, first trimester Referrals: [facility] 2 days Additional Instructions: You have a choice when it comes to health care, and we are glad that you chose [facility] Hopefully, we have met your expectations on today's visit. You are welcome to return to [facility] at any time, as we are committed to meeting the health care needs of our community. Med/Other Pt SpecificInfo: Prescription(s) given Scripts Cephalexin (Keflex) 500 Mg Cap 500 MG PO Q12H for Infection for 5 Days, CAP 0 Refills Prov: Jhonatan Bautista MD 06/28/17 Disposition: 01 DISCHARGE HOME Condition: Stable Jhonatan Bautista MD Jun 28, 2017 17:35
[2017-06-28 17:44] LABS: ALKALINE PHOSPHATASE 65 U/L (45-117); BETA HCG QUANT 47761 MIU/ML (0-5); TOTAL BILIRUBIN ADULT 0.1 MG/DL (0.2-1.0)
[2017-06-28] MEDS ORDERED: metroNIDAZOLE 500 MG TAB PO ONE (18:00)
[2017-06-28] MEDS ORDERED: AZITHROMYCIN PWD FOR SUSP 1 GM PACKET PO ONE (18:15)
== END 2017-06-28 18:25 | disposition home or self-care (01) ==
LOC: NEPD 13:39
DX: O23.11 Infections of bladder in pregnancy, first trimester (principal); Z3A.12 12 weeks gestation of pregnancy
CPT/HCPCS: 80053; 81001; 84702; 85025; 87086; 87210; 99283

== ENCOUNTER 2017-07-13 08:57 | Emergency (ER) | payer OTHER ==
[~2017-07-13] VITALS: Ht 170.2 cm; Wt 118.3 kg
[~2017-07-13 08:57] MED LIST changes: +CEPH-460 PO; -CLIN1CAP6 PO
[2017-07-13 09:12] VITALS: BP 127/66; PULSE 94; RESP 18; TEMP 98.8; O2SAT 98
--- NOTE | 2017-07-13 10:07 | PD ---
HPI Chief Complaint: Related Problem Time Seen by Provider: 09:48 Travel History International Travel<30 days: No Contact w/Intl Traveler<30days: No Traveled to known affect area: No History of Present Illness HPI 26 y/o g1 at about 16 weeks by lmp notes vaginal spotting since yesterday. She states she set up an ob with [facility] for about next week. She states she has not had sex since she was treated here last. She denies other specific complaints other then intermittent cramping. location is lower. severity is spotting. no pain now PFSH Past Medical History Depression: Yes Cardiovascular Problems: Yes (HTN) Diabetes: Yes (BORDERLINE) Patient Takes Glucophage: No Diminished Hearing: No Hypertension: Yes Psychiatric: Yes (MOOD DISORDER) Immunizations Current: Yes Tetanus Vaccination: < 5 Years Influenza Vaccination: Yes ?: LMP: 04/05/17 : 1 Social History Alcohol Use: No Tobacco Use: No Substance Use: No Allergies-Medications (Allergen,Severity, Reaction): Coded Allergies: apple (Unverified Allergy, Intermediate, RASH, 07/13/17) All over body penicillin G (Unverified Allergy, Intermediate, SWELLING/RASH, 07/13/17) all over body Reported Meds & Prescriptions Reported Meds & Active Scripts Active No Active Prescriptions or Reported Medications Review of Systems Except as stated in HPI: all other systems reviewed are Neg Physical Exam Narrative GENERAL: Well-nourished, well-developed patient. well appearing SKIN: Warm and dry. HEAD: Normocephalic and atraumatic. EYES: No injection or drainage. ENT: No nasal drainage noted. NECK: Supple, trachea midline. CARDIOVASCULAR: Regular rate and rhythm RESPIRATORY: no increased effort. No accessory muscle use. GASTROINTESTINAL: Abdomen soft, non-tender, nondistended. EXTREMITIES: No edema. NEUROLOGICAL: Awake and alert. Motor and sensory grossly within normal limits. Normal speech. Data Data Last Documented VS Vital Signs Date Time Temp Pulse Resp B/P (MAP) Pulse Ox O2 Delivery O2 Flow Rate FiO2 07/13/17 09:12 98.8 94 18 127/66 (86) 98 Orders Orders Urinalysis - C+S If Indicated (07/13/17 10:00) Complete Blood Count With Diff (07/13/17 10:00) Urine Culture (07/13/17 10:10) Labs Laboratory Tests Test 07/13/17 10:10 07/13/17 10:14 Urine Collection Type CLEAN CATCH Urine Color YELLOW Urine Turbidity SLIGHT Urine pH 6.5 Urine Specific [place] 1.023 Urine Protein NEG mg/dL Urine Glucose (UA) NEG mg/dL Urine Ketones NEG mg/dL Urine Occult Blood SMALL Urine Nitrite NEG Urine Bilirubin NEG Urine Leukocyte Esterase NEG Urine RBC 4-9 /hpf Urine WBC 3-5 /hpf Urine Squamous Epithelial Cells > 8 /hpf Urine Bacteria MANY /hpf Microscopic Urinalysis Comment CULTURE INDICATED Urine Collection Time 10:10 White Blood Count 7.3 TH/MM3 Red Blood Count 4.05 MIL/MM3 Hemoglobin 10.8 GM/DL Hematocrit 32.9 % Mean Corpuscular Volume 81.2 FL Mean Corpuscular Hemoglobin 26.6 PG Mean Corpuscular Hemoglobin Concent 32.7 % Red Cell Distribution Width 14.0 % Platelet Count 263 TH/MM3 Mean Platelet Volume 8.5 FL Neutrophils (%) (Auto) 62.5 % Lymphocytes (%) (Auto) 28.3 % Monocytes (%) (Auto) 6.7 % Eosinophils (%) (Auto) 0.9 % Basophils (%) (Auto) 1.6 % Neutrophils # (Auto) 4.5 TH/MM3 Lymphocytes # (Auto) 2.1 TH/MM3 Monocytes # (Auto) 0.5 TH/MM3 Eosinophils # (Auto) 0.1 TH/MM3 Basophils # (Auto) 0.1 TH/MM3 CBC Comment DIFF FINAL Differential Comment MDM Medical Decision Making Medical Screen Exam Complete: Yes Emergency Medical Condition: Yes Medical Record Reviewed: Yes ([facility] confirmed, here with positive trichomonas and h/o chlamydia with recent treatment, bedside ultrasound with iup with dr levin per note) Interpretation(s) CBC & BMP Diagram 07/13/17 10:14 ua with blood with squam cells noted-follow culture Differential Diagnosis uti, stone, cyst, miscarriage.... Narrative Course will check cbc and ua and reeval given iup with fht and movement noted on bedside ultrasound with O+ blood type on file discussed with patient pelvic exam and states wanting to hold on given no sex since here last and states only spotting, states will call her ob to move up appointment and wanting to go on reeval, given return instructions and questions answered Procedures Procedure Narrative Emergency Department Pelvic ultrasound was performed with patient consent. The curvilinear probe was used in the transverse and sagittal views within the suprapubic region revealing single intrauterine . heart rate was 141 with movement. Diagnosis Primary Impression: Vaginal bleeding Additional Impression: Qualified Codes: Z34.90 - Encounter for supervision of normal , unspecified, unspecified trimester Patient Instructions: General Instructions Additional Instructions: return as needed, pelvic rest, call ob for follow up tommorrow Med/Other Pt SpecificInfo: No Change to Meds Scripts No Active Prescriptions or Reported Meds Disposition: 01 DISCHARGE HOME Condition: Stable Margy Wilkinson MD Jul 13, 2017 10:07
[2017-07-13 10:18] LABS: AUTOMATED NEUTROPHIL # 4.5 TH/MM3 (1.8-7.7); BASOPHIL # 0.1 TH/MM3 (0-0.2); BASOPHIL % 1.6 % (0.0-2.0); EOSINOPHIL # 0.1 TH/MM3 (0-0.4); EOSINOPHIL % 0.9 % (0.0-4.0); HEMATOCRIT 32.9 % (35.0-46.0); HEMO FLAGS DIFF FINAL; LYMPH % 28.3 % (9.0-44.0); LYMPHOCYTE # 2.1 TH/MM3 (1.0-4.8); MEAN CELL VOLUME 81.2 FL (80.0-100.0); MEAN CORPUSCULAR HEMOGLOBIN 26.6 PG (27.0-34.0); MEAN CORPUSCULAR HGB CONC 32.7 % (32.0-36.0); MONO % 6.7 % (0.0-8.0); NEUT % 62.5 % (16.0-70.0); PLATELET COUNT 263 TH/MM3 (150-450); RED BLOOD COUNT 4.05 MIL/MM3 (4.00-5.30); WHITE BLOOD COUNT 7.3 TH/MM3 (4.0-11.0)
[2017-07-13 10:19] LABS: BLOOD, URINE SMALL (NEG); GLUCOSE,URINE NEG (NEG); KETONE, URINE NEG (NEG); NITRITE,URINE NEG (NEG); PH, URINE 6.5 (5.0-8.5)
[2017-07-13 10:26] LABS: BACTERIA, URINE MANY /hpf; COMMENT (UR) CULTURE INDICATED; CULTURE IF INDICATED CULTURE INDICATED; METHOD OF COLLECTION CLEAN CATCH; SQUAMOUS EPITHELIAL CELL URINE > 8 /hpf (0-5); URINE COLOR YELLOW (YELLW/STRAW)
[2017-07-13 10:38] VITALS: BP 149/79; PULSE 100; RESP 18; O2SAT 100
== END 2017-07-13 10:50 | disposition home or self-care (01) ==
LOC: PHED 08:57
DX: O26.852 Spotting complicating pregnancy, second trimester (principal); Z3A.16 16 weeks gestation of pregnancy; O16.2 Unspecified maternal hypertension, second trimester; O24.912 Unspecified diabetes mellitus in pregnancy, second trimester; R82.90 Unspecified abnormal findings in urine
CPT/HCPCS: 81001; 85025; 87086; 99284

== ENCOUNTER 2017-08-06 02:24 | Emergency (ER) | payer OTHER ==
[~2017-08-06] VITALS: Ht 172.7 cm; Wt 110.0 kg
[2017-08-06 02:26] VITALS: BP 136/68; PULSE 104; RESP 18; TEMP 99.5; O2SAT 96
[2017-08-06] MEDS ORDERED: PREN29TA PO (03:05)
[2017-08-06 04:03] LABS: AUTOMATED NEUTROPHIL # 4.6 TH/MM3 (1.8-7.7); BASOPHIL % 0.2 % (0.0-2.0); EOSINOPHIL # 0.1 TH/MM3 (0-0.4); EOSINOPHIL % 0.8 % (0.0-4.0); HEMATOCRIT 26.4 % (35.0-46.0); HEMO FLAGS DIFF FINAL; LYMPH % 29.6 % (9.0-44.0); LYMPHOCYTE # 2.1 TH/MM3 (1.0-4.8); MEAN CELL VOLUME 81.9 FL (80.0-100.0); MEAN CORPUSCULAR HEMOGLOBIN 27.4 PG (27.0-34.0); MEAN CORPUSCULAR HGB CONC 33.4 % (32.0-36.0); MONO % 5.7 % (0.0-8.0); NEUT % 63.7 % (16.0-70.0); PLATELET COUNT 239 TH/MM3 (150-450); RED BLOOD COUNT 3.23 MIL/MM3 (4.00-5.30); RED CELL DISTRIBUTION WIDTH 14.3 % (11.6-17.2); WHITE BLOOD COUNT 7.2 TH/MM3 (4.0-11.0)
[2017-08-06 04:23] LABS: BICARBONATE 26.8 MEQ/L (21.0-32.0); POTASSIUM 3.3 MEQ/L (3.5-5.1)
[2017-08-06 05:55] VITALS: BP 143/64; PULSE 98; RESP 18; O2SAT 100
[2017-08-06 05:58] LABS: BACTERIA, URINE RARE /hpf; BLOOD, URINE TRACE (NEG); COMMENT (UR) CULT NOT INDICATED; CULTURE IF INDICATED CULT NOT INDICATED; GLUCOSE,URINE NEG (NEG); KETONE, URINE TRACE mg/dL (NEG); MUCUS URINE FEW /lpf (OCC); NITRITE,URINE NEG (NEG); SQUAMOUS EPITHELIAL CELL URINE 10 /hpf (0-5); URINE COLOR YELLOW (YELLW/STRAW)
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
[2017-08-06] MEDS ORDERED: ACETAMINOPHEN 325 MG TAB PO ONE (06:15)
[2017-08-06] MEDS ORDERED: NITROFURANTOIN MONOHYD MACROCR 100 MG CAP PO ONE (06:15)
[2017-08-06] MEDS ORDERED: MACR100C2 PO (06:38)
== END 2017-08-06 06:44 | disposition home or self-care (01) ==
LOC: NEPC 02:24
DX: O26.892 Other specified pregnancy related conditions, second trimester (principal); R10.9 Unspecified abdominal pain; O16.2 Unspecified maternal hypertension, second trimester; O99.89 Other specified diseases and conditions complicating pregnancy, childbirth and the puerperium; R73.03 Prediabetes; O99.342 Other mental disorders complicating pregnancy, second trimester; F39 Unspecified mood [affective] disorder; Z3A.17 17 weeks gestation of pregnancy
CPT/HCPCS: 80048; 81001; 83030; 84702; 85025; 86901; 99284

== ENCOUNTER 2017-08-27 21:19 | Emergency (ER) | payer OTHER ==
[~2017-08-27] VITALS: Ht 175.3 cm; Wt 125.1 kg
[~2017-08-27 21:19] MED LIST changes: -CEPH-460 PO; +MACR100C2 PO; +PREN29TA PO
[2017-08-27 21:25] VITALS: BP 130/81; PULSE 97; RESP 18; TEMP 98.9; O2SAT 98
[2017-08-27 22:45] LABS: BLOOD, URINE TRACE (NEG); GLUCOSE,URINE NEG (NEG); KETONE, URINE NEG (NEG); NITRITE,URINE NEG (NEG)
--- NOTE | 2017-08-27 22:55 | PD ---
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 pt denies interval sexual activity. 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 Past Medical History Medical History: Denies Significant Hx Depression: Yes Cardiovascular Problems: Yes (HTN) Diabetes: Yes (BORDERLINE) Diminished Hearing: No Hypertension: Yes Psychiatric: Yes (MOOD DISORDER) Immunizations Current: Yes Influenza Vaccination: No ?: LMP: 03/29/2017 : 1 Para: 0 Past Surgical History Surgical History: No Previous Surgery Social History Alcohol Use: No Tobacco Use: No Substance Use: No Allergies-Medications (Allergen,Severity, Reaction): Coded Allergies: apple (Unverified Allergy, Intermediate, RASH, 08/06/17) All over body penicillin G (Unverified Allergy, Intermediate, SWELLING/RASH, 08/06/17) all over body Reported Meds & Prescriptions Reported Meds & Active Scripts Active Macrobid (Nitrofurantoin Monoh/Nitrofur Macro) 100 Mg Cap 100 Mg PO BID 7 Days Reported Plus Iron 29-1 mg ( Vit-Iron Carbonyl) 29 Mg Iron-1 Mg Tab 1 Tab PO DAILY Review of Systems Except as stated in HPI: all other systems reviewed are Neg Physical Exam Narrative GENERAL: 26 yo F, WNWD, NAD PELVIC: white discharge in vault; no blood; no adnexal mass SKIN: Warm and dry. HEAD: Atraumatic. Normocephalic. EYES: Pupils equal and round. No scleral icterus. No injection or drainage. ENT: No nasal bleeding or discharge. Mucous membranes pink and moist. NECK: Trachea midline. No JVD. CARDIOVASCULAR: Regular rate and rhythm. RESPIRATORY: No accessory muscle use. Clear to auscultation. Breath sounds equal bilaterally. GASTROINTESTINAL: Abdomen soft, non-tender, nondistended. Hepatic and splenic margins not palpable. MUSCULOSKELETAL: Extremities without clubbing, cyanosis, or edema. No obvious deformities. NEUROLOGICAL: Awake and alert. No obvious cranial nerve deficits. Motor grossly within normal limits. Five out of 5 muscle strength in the arms and legs. Normal speech. PSYCHIATRIC: Appropriate mood and affect; insight and judgment normal. Data Data Last Documented VS Vital Signs Date Time Temp Pulse Resp B/P (MAP) Pulse Ox O2 Delivery O2 Flow Rate FiO2 08/27/17 21:25 98.9 97 18 130/81 (97) 98 VS reviewed Orders Orders Complete Blood Count With Diff (08/27/17 22:27) Comprehensive Metabolic Panel (08/27/17 22:27) Gc And Chlamydia Pcr (08/27/17:) Wet Prep Profile (08/27/17:27) Urinalysis - C+S If Indicated (08/27/17 22:27) Iv Access Insert/Monitor (08/27/17 22:27) Urine Culture (08/27/17 22:35) Azithromycin Powd Pack (Zithromax Powd P (08/27/17 23:30) Ceftriaxone Inj (Rocephin Inj) (08/27/17 23:30) Lidocaine 1% Inj (50 Ml) (Xylocaine 1% I (08/27/17 23:30) Metronidazole (Flagyl) (08/27/17 23:30) Ceftriaxone Inj (Rocephin Inj) (08/27/17 23:30) Ed Discharge Order (08/27/17 23:20) Labs Laboratory Tests Test 08/27/17 22:05 08/27/17 22:35 08/27/17 22:48 Clue Cells (Wet Prep) NONE SEEN Vaginal Trichomonas (Wet Prep) NONE SEEN Vaginal Yeast (Wet Prep) NONE SEEN Urine Color YELLOW Urine Turbidity CLEAR Urine pH 7.0 Urine Specific [place] 1.025 Urine Protein NEG mg/dL Urine Glucose (UA) NEG mg/dL Urine Ketones NEG mg/dL Urine Occult Blood TRACE Urine Nitrite NEG Urine Bilirubin NEG Urine Leukocyte Esterase SMALL Urine RBC 0-3 /hpf Urine WBC 9-14 /hpf Urine Squamous Epithelial Cells > 8 /hpf Urine Bacteria MOD /hpf Microscopic Urinalysis Comment CULTURE INDICATED White Blood Count 8.0 TH/MM3 Red Blood Count 3.55 MIL/MM3 Hemoglobin 9.6 GM/DL Hematocrit 29.0 % Mean Corpuscular Volume 81.7 FL Mean Corpuscular Hemoglobin 27.1 PG Mean Corpuscular Hemoglobin Concent 33.2 % Red Cell Distribution Width 13.7 % Platelet Count 248 TH/MM3 Mean Platelet Volume 8.9 FL Neutrophils (%) (Auto) 58.7 % Lymphocytes (%) (Auto) 32.2 % Monocytes (%) (Auto) 6.3 % Eosinophils (%) (Auto) 1.1 % Basophils (%) (Auto) 1.7 % Neutrophils # (Auto) 4.7 TH/MM3 Lymphocytes # (Auto) 2.6 TH/MM3 Monocytes # (Auto) 0.5 TH/MM3 Eosinophils # (Auto) 0.1 TH/MM3 Basophils # (Auto) 0.1 TH/MM3 CBC Comment DIFF FINAL Differential Comment Blood Urea Nitrogen 6 MG/DL Creatinine 0.36 MG/DL Random Glucose 81 MG/DL Total Protein 7.3 GM/DL Albumin 2.9 GM/DL Calcium Level 8.8 MG/DL Alkaline Phosphatase 63 U/L Aspartate Amino Transf (AST/SGOT) 12 U/L Alanine Aminotransferase (ALT/SGPT) 15 U/L Total Bilirubin LESS THAN 0.1 MG/DL Sodium Level 137 MEQ/L Potassium Level 3.6 MEQ/L Chloride Level 104 MEQ/L Carbon Dioxide Level 24.4 MEQ/L Anion Gap 9 MEQ/L Estimat Glomerular Filtration Rate 268 ML/MIN [facility] Medical Decision Making Medical Screen Exam Complete: Yes Emergency Medical Condition: Yes Medical Record Reviewed: Yes Differential Diagnosis IUP, UTI, ectopic , ov torsion, appendicitis, TOA, cervicitis, BV, Trichomoniasis, ov cyst, hernia, mittelschmerz, pain from menstruation Narrative Course CBC & BMP Diagram 08/27/17 22:48 Total Protein 7.3, Albumin 2.9 L, Calcium Level 8.8, Alkaline Phosphatase 63, Aspartate Amino Transf (AST/SGOT) 12 L, Alanine Aminotransferase (ALT/SGPT) 15, Total Bilirubin LESS THAN 0.1 L UA: UTI probable Wet prep: negative x three Pelvic: white discharge in vault with ley-negative wet prep raises concern for false negative results pt has core placer follow up next week and has verbalized agreement to follow up as scheduled. interval return precautions discussed. Diagnosis Primary Impression: Abdominal pain affecting Additional Impression: UTI (urinary tract infection) Qualified Codes: N30.00 - Acute cystitis without hematuria Referrals: Lining Machine Operator 2 days Additional Instructions: You have a choice when it comes to health care, and we are glad that you chose [facility]. Hopefully, we have met your expectations on today's visit. You are welcome to return to [facility] at any time, as we are committed to meeting the health care needs of our community. Med/Other Pt SpecificInfo: Prescription(s) given Scripts Nitrofurantoin Monohydrate Macrocrystals (Macrobid) 100 Mg Cap 100 MG PO BID for Infection for 7 Days, #14 CAP 0 Refills Prov: Jhonatan Bautista MD 08/27/17 Disposition: DISCHARGE HOME Condition: Stable Jhonatan Bautista MD Aug 27, 2017 22:55
[2017-08-27 23:00] LABS: URINE COLOR YELLOW (YELLW/STRAW)
[2017-08-27 23:01] LABS: BACTERIA, URINE MOD /hpf; COMMENT (UR) CULTURE INDICATED; CULTURE IF INDICATED CULTURE INDICATED; RBC, URINE 0-3 /hpf (0-3); SQUAMOUS EPITHELIAL CELL URINE > 8 /hpf (0-5)
[2017-08-27 23:05] LABS: CHLORIDE 104 MEQ/L (98-107); POTASSIUM 3.6 MEQ/L (3.5-5.1); SODIUM (NA) 137 MEQ/L (136-145)
[2017-08-27 23:09] LABS: ANION GAP 9 MEQ/L (5-15); BICARBONATE 24.4 MEQ/L (21.0-32.0); BLOOD UREA NITROGEN 6 MG/DL (7-18)
[2017-08-27 23:12] LABS: ALT (GPT) 15 U/L (10-53); AST (GOT) 12 U/L (15-37); GLOMERULAR FILTRATION RATE 268 ML/MIN (>89)
[2017-08-27 23:14] LABS: TOTAL BILIRUBIN ADULT LESS THAN 0.1 MG/DL (0.2-1.0)
[2017-08-27 23:15] LABS: ALKALINE PHOSPHATASE 63 U/L (45-117)
[2017-08-27] MEDS ORDERED: MACR100C2 PO (23:17)
[2017-08-27 23:21] LABS: AUTOMATED NEUTROPHIL # 4.7 TH/MM3 (1.8-7.7); BASOPHIL # 0.1 TH/MM3 (0-0.2); BASOPHIL % 1.7 % (0.0-2.0); EOSINOPHIL # 0.1 TH/MM3 (0-0.4); EOSINOPHIL % 1.1 % (0.0-4.0); HEMO FLAGS DIFF FINAL; LYMPH % 32.2 % (9.0-44.0); LYMPHOCYTE # 2.6 TH/MM3 (1.0-4.8); MEAN CELL VOLUME 81.7 FL (80.0-100.0); MEAN CORPUSCULAR HEMOGLOBIN 27.1 PG (27.0-34.0); MEAN CORPUSCULAR HGB CONC 33.2 % (32.0-36.0); MONO % 6.3 % (0.0-8.0); NEUT % 58.7 % (16.0-70.0); PLATELET COUNT 248 TH/MM3 (150-450); RED BLOOD COUNT 3.55 MIL/MM3 (4.00-5.30); RED CELL DISTRIBUTION WIDTH 13.7 % (11.6-17.2)
[2017-08-27] MEDS ORDERED: AZITHROMYCIN PWD FOR SUSP 1 GM PACKET PO ONE (23:30)
[2017-08-27] MEDS ORDERED: cefTRIAXone 250 MG VIAL IM ONE (23:30)
[2017-08-27] MEDS ORDERED: metroNIDAZOLE 500 MG TAB PO ONE (23:30)
[2017-08-27] MEDS ORDERED: LIDOCAINE HCL 1% 50 ML VIAL IM ONE (23:30)
[2017-08-27 23:44] VITALS: BP 128/80; TEMP 98.6
[2017-08-28 11:16] LABS: CHLAMYDIA PCR NOT DETECTED (NOT DETECT); NEISSERIA PCR NOT DETECTED (NOT DETECT)
== END 2017-08-28 00:02 | disposition home or self-care (01) ==
LOC: PHED 21:19
DX: O26.92 Pregnancy related conditions, unspecified, second trimester (principal); O23.42 Unspecified infection of urinary tract in pregnancy, second trimester; R10.30 Lower abdominal pain, unspecified; B96.89 Other specified bacterial agents as the cause of diseases classified elsewhere; Z3A.19 19 weeks gestation of pregnancy
CPT/HCPCS: 80053; 81001; 85025; 87086; 87210; 87491; 87591; 96372; 99284; J0696

== ENCOUNTER 2017-10-26 13:56 | Emergency (ER) | payer OTHER ==
[~2017-10-26 13:56] MED LIST changes: -MACR100C2 PO; +TERC.4%V VAGINAL
[2017-10-26 14:58] VITALS: BP 145/67; PULSE 92
[2017-10-26 15:14] VITALS: BP 136/71; PULSE 87
[2017-10-26] MEDS ORDERED: ACETAMINOPHEN 325 MG TAB PO ONE (15:30)
--- NOTE | 2017-10-26 15:49 | PD ---
History of Present Illness History of Present Illness NST report Indications: IUP at 29.1, status post maternal fall heart rate baseline in the 130s with good accelerations and no decelerations, there is moderate long-term variability. The fetus has a reactive NST and category 1 heart rate tracing Final diagnosis: IUP at 29.1, status post maternal fall, reassuring testing Follow-up: Follow-up as clinically indicated Val Rubin MD Oct 26, 2017 15:49
--- NOTE | 2017-10-26 15:51 | PD ---
HPI Chief Complaint fell at home yesterday Date Seen: Oct 26, 2017 Time Seen: 15:36 Travel History International Travel<30 Days: No Contact w/Intl Traveler<30Days: No History of Present Illness HPI at 29 and 1/7 weeks gestation based on second trimester US, LEONARD 01/10/2018, who presents to the OB ED after a fall yesterday evening. She slipped on water at home, fell on her right hip. No LOC. She is sore but this has improved since this morning. She denies leakage of fluid, vaginal bleeding, and contractions. She feels baby moving regularly. She denies VEGA/N/V/D/fever/sick contacts/SOB/ calf pain/dizziness/seeing spots. History Past Medical History Narrative Medical prediabetes Obstetric History Obstetric History Past Surgical History Narrative Surgical None Family History Narrative Family History DM, HTN Social History Alcohol Use: No Tobacco Use: No Substance Abuse: No Allergies-Medications (Allergen,Severity, Reaction): Coded Allergies: apple (Unverified Allergy, Intermediate, RASH, 10/21/17) All over body penicillin G (Unverified Allergy, Intermediate, SWELLING/RASH, 10/21/17) all over body Home Meds Active Scripts Terconazole Vaginal Cream (Terazol 7 Vaginal Cream) 0.4 % Cream, 1 APPL VAGINAL HS for Fungal Infection, #45 GM 0 Refills 1 applicatorful intravaginally x 7 nights Prov:Val Vitale 09/29/17 Reported Medications Vit-Iron Carbonyl ( Plus Iron 29-1 mg) 29 Mg Iron-1 Mg Tab, 1 TAB PO DAILY for Nutritional Supplement, #30 TAB 0 Refills 08/06/17 Review of Systems Except as stated in HPI: all other systems reviewed are Neg Physical Exam Narrative GENERAL: Well-nourished, well-developed patient. SKIN: Warm and dry. No rashes. HEAD: Normocephalic and atraumatic. EYES: No scleral icterus. No injection or drainage. ENT: No nasal drainage noted. Mucous membranes pink. Airway patent. NECK: Supple, trachea midline. No JVD. CARDIOVASCULAR: Regular rate and rhythm without murmurs, gallops, or rubs. RESPIRATORY: Breath sounds equal bilaterally. No accessory muscle use. ABDOMEN/GI: Abdomen gravid non-tender, bowel sounds present, no rebound, no guarding. GENITOURINARY: in presence of MA. External Genitalia: intact and normal in appearance Speculum exam: no vaginal laceration, no bleeding noted, normal white physiologic discharge, normal Cervix: closed, mucous plus clear/yellow and without blood Uterine Contractions: absent FHT's: Category: 1 Baseline: 150s Reactive: 160s Variability: mod Decels: absent EXTREMITIES: No cyanosis or edema. BACK: Nontender without obvious deformity. No CVA tenderness. NEUROLOGICAL: Awake and alert. Motor and sensory grossly within normal limits. Five out of 5 muscle strength in all muscle groups. Normal speech. Data Data Vital Signs Reviewed: Yes (wnl, BP 136/71) Orders Orders Vital Signs (Adult) .ON ADMISSION (10/26/17 15:19) ^ Labor Status (10/26/17 15:19) ^ Non Stress Test (10/26/17 15:19) Us Ob Limited (10/26/17 ) Acetaminophen (Tylenol) (10/26/17 15:30) MDM Medical Record Reviewed: Yes Plan at 29 and 1/7 weeks gestation who presents to the OB ED after a fall yesterday evening. Exam benign. Labs ordered. Speculum exam unremarkable. Will give acetaminophen, OB US, labs and monitor NST. UPDATE 1640: BPP 8/8. Labs still pending. FHTs reassuring. If labs wnl will discharge home. Intrauterine Category 1 tracing No CTX on monitor Monitor heart tones Routine care Abdominal Trauma CBC, CMP, UA, Limited US Tylenol 650mg x 1 Elevated BPs Likely related to pain Not meeting criteria for pre-E Will assess labs as above SDW Dr. Kaylie Rubin Diagnosis Diagnosis: Primary Impression: Abdominal pain affecting Disposition: DISCHARGE HOME Condition: Stable Patient Instructions: Abdominal Pain in (ED), Labor (ED) eYn Dong MD R2 Oct 26, 2017 15:51
[2017-10-26 16:49] LABS: AUTOMATED NEUTROPHIL # 4.2 TH/MM3 (1.8-7.7); BASOPHIL % 0.3 % (0.0-2.0); EOSINOPHIL # 0.1 TH/MM3 (0-0.4); EOSINOPHIL % 1.9 % (0.0-4.0); HEMATOCRIT 25.6 % (35.0-46.0); HEMOGLOBIN 8.3 GM/DL (11.6-15.3); LYMPH % 25.1 % (9.0-44.0); LYMPHOCYTE # 1.6 TH/MM3 (1.0-4.8); MEAN CORPUSCULAR HEMOGLOBIN 25.4 PG (27.0-34.0); MEAN CORPUSCULAR HGB CONC 32.6 % (32.0-36.0); MEAN PLATELET VOLUME 8.7 FL (7.0-11.0); MONO % 6.1 % (0.0-8.0); MONOCYTE # 0.4 TH/MM3 (0-0.9); NEUT % 66.6 % (16.0-70.0); PLATELET COUNT 257 TH/MM3 (150-450); RED BLOOD COUNT 3.29 MIL/MM3 (4.00-5.30); RED CELL DISTRIBUTION WIDTH 14.5 % (11.6-17.2); WHITE BLOOD COUNT 6.3 TH/MM3 (4.0-11.0)
[2017-10-26 16:59] LABS: BACTERIA, URINE OCC /hpf; BILIRUBIN, URINE NEG (NEG); BLOOD, URINE NEG (NEG); GLUCOSE,URINE NEG (NEG); KETONE, URINE NEG (NEG); MUCUS URINE MANY /lpf (OCC); NITRITE,URINE NEG (NEG); SQUAMOUS EPITHELIAL CELL URINE 9 /hpf (0-5); URINE COLOR YELLOW (YELLW/STRAW); URINE LEUKOCYTE ESTERASE SMALL (NEG)
[2017-10-26 17:12] LABS: ALBUMIN 2.6 GM/DL (3.4-5.0); ALT (GPT) 12 U/L (10-53); AST (GOT) 13 U/L (15-37); BICARBONATE 25.9 MEQ/L (21.0-32.0); BLOOD UREA NITROGEN 7 MG/DL (7-18); CALCIUM 8.8 MG/DL (8.5-10.1); CHLORIDE 104 MEQ/L (98-107); CREATININE 0.41 MG/DL (0.50-1.00); GLOMERULAR FILTRATION RATE 231 ML/MIN (>89); GLUCOSE,RANDOM 61 MG/DL (74-106); SODIUM (NA) 140 MEQ/L (136-145)
[2017-10-26 17:15] LABS: ALKALINE PHOSPHATASE 83 U/L (45-117); TOTAL BILIRUBIN ADULT 0.2 MG/DL (0.2-1.0); TOTAL PROTEIN 7.1 GM/DL (6.4-8.2)
[2017-10-26 17:24] VITALS: BP 135/74; PULSE 81
[2017-10-26 17:30] VITALS: RESP 18; TEMP 98
== END 2017-10-26 19:39 | disposition home or self-care (01) ==
LOC: HOBED 13:58
DX: O26.893 Other specified pregnancy related conditions, third trimester (principal); R10.9 Unspecified abdominal pain; Z3A.29 29 weeks gestation of pregnancy
CPT/HCPCS: 36415; 76816; 76819; 80053; 81001; 83030; 85025; 87086; 99284

== ENCOUNTER 2017-10-29 17:23 | Observation (INO) | payer OTHER ==
[2017-10-29] VITALS (14 sets, daily range): BP systolic 119–151; BP diastolic 54–72; PULSE 82–99; RESP 16–18; TEMP 98.8–99; O2SAT 98–99
[~2017-10-29] VITALS: Ht 175.3 cm; Wt 129.0 kg
[2017-10-29 18:42] LABS: BACTERIA, URINE MOD /hpf; BILIRUBIN, URINE NEG (NEG); BLOOD, URINE NEG (NEG); GLUCOSE,URINE NEG (NEG); KETONE, URINE 80 mg/dL (NEG); MUCUS URINE FEW /lpf (OCC); NITRITE,URINE NEG (NEG); SQUAMOUS EPITHELIAL CELL URINE 26 /hpf (0-5); URINE COLOR YELLOW (YELLW/STRAW); URINE LEUKOCYTE ESTERASE MOD (NEG)
[2017-10-29] MEDS ORDERED: NITROFURANTOIN MONOHYD MACROCR 100 MG CAP PO ONE (20:00)
[2017-10-29] MEDS ORDERED: ACETAMINOPHEN 325 MG TAB PO ONE (20:00)
[2017-10-29] MEDS ORDERED: SODIUM CHLOR 0.9% 1000 ML INJ 1,000 ML IV ONE (20:00)
--- NOTE | 2017-10-29 20:26 | PD ---
HPI Chief Complaint: Altered Mental Status Time Seen by Provider: 17:37 Travel History International Travel<30 days: No Contact w/Intl Traveler<30days: No Traveled to known affect area: No History of Present Illness HPI 26-year-old 28-week-old female presents to the ED via EMS for evaluation of altered mental status. Per EMS report the patient's grandmother noticed that the patient was confused about where she was after she woke up from a nap today. On presentation the patient states that she does not feel good. She is alert to self, situation, place. She states that she's been sleeping most of the day but that she "doesn't feel good." She denies headaches , dizziness, chest pain, palpitations, shortness of breath, abdominal pain, nausea, vomiting, dysuria, vaginal discharge, vaginal bleeding. She is followed by Dr. Kaylie Rubin. [facility] Past Medical History Depression: Yes Cardiovascular Problems: Yes (HTN) Diabetes: Yes (BORDERLINE) Diminished Hearing: No Hypertension: Yes Psychiatric: Yes (MOOD DISORDER) Immunizations Current: Yes ?: : 1 Para: 0 Social History Alcohol Use: No Tobacco Use: No Substance Use: No Allergies-Medications (Allergen,Severity, Reaction): Coded Allergies: apple (Unverified Allergy, Intermediate, RASH, 10/21/17) All over body penicillin G (Unverified Allergy, Intermediate, SWELLING/RASH, 10/21/17) all over body Reported Meds & Prescriptions Reported Meds & Active Scripts Active Terazol 7 Vaginal Cream (Terconazole Vaginal Cream) 0.4 % Cream 1 Appl VAGINAL HS 1 applicatorful intravaginally x 7 nights Reported Plus Iron 29-1 mg ( Vit-Iron Carbonyl) 29 Mg Iron-1 Mg Tab 1 Tab PO DAILY Review of Systems Except as stated in HPI: all other systems reviewed are Neg Physical Exam Narrative GENERAL: Well-nourished, well-developed obese female in no acute distress. SKIN: Focused skin assessment warm/dry. HEAD: Normocephalic. EYES: No scleral icterus. No injection or drainage. PERRLA. EOMI. NECK: Supple, trachea midline. No JVD or lymphadenopathy. CARDIOVASCULAR: Regular rate and rhythm without murmurs, gallops, or rubs. RESPIRATORY: Breath sounds clear and equal bilaterally. No accessory muscle use. GASTROINTESTINAL: Abdomen soft, non-tender, nondistended. Active bowel sounds. MUSCULOSKELETAL: No cyanosis, or edema. Patient is observed to walk with normal gait. NEUROLOGICAL: Awake and alert. Cranial nerves II through XII intact. Motor and sensory grossly within normal limits. Five out of 5 muscle strength in all muscle groups. Normal speech. BACK: Nontender without obvious deformity. No CVA tenderness. Data Data Last Documented VS Vital Signs Date Time Temp Pulse Resp B/P (MAP) Pulse Ox O2 Delivery O2 Flow Rate FiO2 10/29/17 20:54 88 18 149/62 (91) 99 Room Air 10/29/17 17:31 99.0 Orders Orders Urinalysis - C+S If Indicated (10/29/17 17:38) Heart Tones (10/29/17 17:38) Urine Culture (10/29/17 18:00) Acetaminophen (Tylenol) (10/29/17 20:00) Sodium Chlor 0.9% 1000 Ml Inj (Ns 1000 M (10/29/17 20:00) Nitrofurantoin Monohyd Macrocr (Macrobid (10/29/17 20:00) Complete Blood Count With Diff (10/29/17 20:20) Comprehensive Metabolic Panel (10/29/17 20:20) Coag Profile (10/29/17 20:20) Labs Laboratory Tests Test 10/29/17 18:00 10/29/17 20:43 Urine Color YELLOW Urine Turbidity HAZY Urine pH 7.0 Urine Specific [place] 1.021 Urine Protein 30 mg/dL Urine Glucose (UA) NEG mg/dL Urine Ketones 80 mg/dL Urine Occult Blood NEG Urine Nitrite NEG Urine Bilirubin NEG Urine Urobilinogen LESS THAN 2.0 MG/DL Urine Leukocyte Esterase MOD Urine WBC 8 /hpf Urine Squamous Epithelial Cells 26 /hpf Urine Bacteria MOD /hpf Urine Mucus FEW /lpf Microscopic Urinalysis Comment CULTURE INDICATED White Blood Count 5.9 TH/MM3 Red Blood Count 3.32 MIL/MM3 Hemoglobin 8.2 GM/DL Hematocrit 25.7 % Mean Corpuscular Volume 77.3 FL Mean Corpuscular Hemoglobin 24.7 PG Mean Corpuscular Hemoglobin Concent 31.9 % Red Cell Distribution Width 14.8 % Platelet Count 242 TH/MM3 Mean Platelet Volume 8.4 FL Neutrophils (%) (Auto) 59.8 % Lymphocytes (%) (Auto) 32.2 % Monocytes (%) (Auto) 6.7 % Eosinophils (%) (Auto) 1.1 % Basophils (%) (Auto) 0.2 % Neutrophils # (Auto) 3.6 TH/MM3 Lymphocytes # (Auto) 1.9 TH/MM3 Monocytes # (Auto) 0.4 TH/MM3 Eosinophils # (Auto) 0.1 TH/MM3 Basophils # (Auto) 0.0 TH/MM3 CBC Comment DIFF FINAL Differential Comment Prothrombin Time 10.4 SEC Prothromb Time International Ratio 1.0 RATIO Activated Partial Thromboplast Time 26.4 SEC Blood Urea Nitrogen 9 MG/DL Creatinine 0.45 MG/DL Random Glucose 70 MG/DL Total Protein 6.8 GM/DL Albumin 2.4 GM/DL Calcium Level 8.5 MG/DL Alkaline Phosphatase 87 U/L Aspartate Amino Transf (AST/SGOT) 11 U/L Alanine Aminotransferase (ALT/SGPT) 12 U/L Total Bilirubin 0.1 MG/DL Sodium Level 137 MEQ/L Potassium Level 3.2 MEQ/L Chloride Level 105 MEQ/L Carbon Dioxide Level 24.5 MEQ/L Anion Gap 8 MEQ/L Estimat Glomerular Filtration Rate 207 ML/MIN MDM Medical Decision Making Medical Screen Exam Complete: Yes Emergency Medical Condition: Yes Differential Diagnosis UTI versus preeclampsia versus psychiatric disorder versus other Narrative Course 26-year-old 28-week-old female presents to the ED via EMS for evaluation of altered mental status. Per EMS report the patient's grandmother noticed that the patient was confused about where she was after she woke up from a nap today. On presentation the patient states that she does not feel good. She is alert to self, situation, place. She states that she's been sleeping most of the day but that she "doesn't feel good." She denies headaches , dizziness, chest pain, palpitations, shortness of breath, abdominal pain, nausea, vomiting, dysuria, vaginal discharge, vaginal bleeding. She is followed by Dr. Kaylie Rubin. Vitals reviewed. Patient was normotensive on arrival. Physical exam is unremarkable. heart tones rate 140. During the course of evaluation the patient states that she has a dull frontal headache with mild blurred vision. She was administered 500 mg Tylenol, 1 L normal saline. UA hazy, 30 protein, moderate leukocyte esterase, 8 WBCs, moderate bacteria. Culture pending. She was administered 100 mg Macrobid by mouth. Patient has had systolic BP greater than 140 on 2 different blood pressure readings. Upon speaking with the grandmother she states that the patient's sister had preeclampsia and lost a baby at 29 weeks. I spoke with Dr. Swanson, Hospitalist OB service, who recommends that the patient be transferred to the OB ED for further evaluation. I discussed this plan with the patient and her grandmother who are agreeable. The patient is stable and discharged to the OB ED for further evaluation, please see their notes for disposition. Hina Crawley Oct 29, 2017 20:26
[2017-10-29 21:15] LABS: AUTOMATED NEUTROPHIL # 3.6 TH/MM3 (1.8-7.7); BASOPHIL % 0.2 % (0.0-2.0); EOSINOPHIL # 0.1 TH/MM3 (0-0.4); EOSINOPHIL % 1.1 % (0.0-4.0); HEMATOCRIT 25.7 % (35.0-46.0); HEMOGLOBIN 8.2 GM/DL (11.6-15.3); LYMPH % 32.2 % (9.0-44.0); LYMPHOCYTE # 1.9 TH/MM3 (1.0-4.8); MEAN CELL VOLUME 77.3 FL (80.0-100.0); MEAN CORPUSCULAR HEMOGLOBIN 24.7 PG (27.0-34.0); MEAN CORPUSCULAR HGB CONC 31.9 % (32.0-36.0); MEAN PLATELET VOLUME 8.4 FL (7.0-11.0); MONO % 6.7 % (0.0-8.0); MONOCYTE # 0.4 TH/MM3 (0-0.9); NEUT % 59.8 % (16.0-70.0); PLATELET COUNT 242 TH/MM3 (150-450); RED BLOOD COUNT 3.32 MIL/MM3 (4.00-5.30); RED CELL DISTRIBUTION WIDTH 14.8 % (11.6-17.2); WHITE BLOOD COUNT 5.9 TH/MM3 (4.0-11.0)
[2017-10-29 21:32] LABS: ALBUMIN 2.4 GM/DL (3.4-5.0); AST (GOT) 11 U/L (15-37); BICARBONATE 24.5 MEQ/L (21.0-32.0); BLOOD UREA NITROGEN 9 MG/DL (7-18); CALCIUM 8.5 MG/DL (8.5-10.1); CHLORIDE 105 MEQ/L (98-107); CREATININE 0.45 MG/DL (0.50-1.00); GLOMERULAR FILTRATION RATE 207 ML/MIN (>89); GLUCOSE,RANDOM 70 MG/DL (74-106); SODIUM (NA) 137 MEQ/L (136-145)
[2017-10-29 21:33] LABS: ALT (GPT) 12 U/L (10-53)
[2017-10-29 21:34] LABS: PROTHROMBIN TIME - PATIENT 10.4 SEC (9.8-11.6)
[2017-10-29 21:35] LABS: ALKALINE PHOSPHATASE 87 U/L (45-117); TOTAL BILIRUBIN ADULT 0.1 MG/DL (0.2-1.0); TOTAL PROTEIN 6.8 GM/DL (6.4-8.2)
--- NOTE | 2017-10-29 23:37 | PD ---
HPI Chief Complaint sent from ED Date Seen: Oct 29, 2017 Time Seen: 23:22 Travel History International Travel<30 Days: No Contact w/Intl Traveler<30Days: No Known Affected Area: No History of Present Illness HPI Pt is a 26y/o G1 @ 29.4wks. She has [facility] with [facility]. She presented to the ED today for "not feeling right". She reports that she woke up from a nap and felt odd. She states that the L side of her body was numb and she "blanked out". She is unable to confirm whether or not she lost consciousness... she states that her grandmother was present and she doesn't remember what happened except that EMS was called. She also states she had dizziness during this time. She has a VEGA as well. Pt was seen/evaluated in the ED and found to have a UTI, AMS, and elevated BPs ( 140s systolic). She was given macrobid PO and sent to L&D for evaluation for possible preE. +FM. No LOF or VB. No contractions or OB complaints. Weeks Gestation: 29 Para: 0 : 1 History Past Medical History Medical History: Denies Significant Hx Obstetric History Obstetric History 1. current Past Surgical History Surgical History: No Previous Surgery Family History Family History: Negative Social History Alcohol Use: No Tobacco Use: No Substance Abuse: No Allergies-Medications (Allergen,Severity, Reaction): Coded Allergies: apple (Unverified Allergy, Intermediate, RASH, 10/21/17) All over body penicillin G (Unverified Allergy, Intermediate, SWELLING/RASH, 10/21/17) all over body Home Meds Active Scripts Terconazole Vaginal Cream (Terazol 7 Vaginal Cream) 0.4 % Cream, 1 APPL VAGINAL HS for Fungal Infection, #45 GM 0 Refills 1 applicatorful intravaginally x 7 nights Prov:Val Vitale 09/29/17 Reported Medications Vit-Iron Carbonyl ( Plus Iron 29-1 mg) 29 Mg Iron-1 Mg Tab, 1 TAB PO DAILY for Nutritional Supplement, #30 TAB 0 Refills 08/06/17 Review of Systems Except as stated in HPI: all other systems reviewed are Neg Physical Exam Vital Signs Date Time Temp Pulse Resp B/P (MAP) Pulse Ox O2 Delivery O2 Flow Rate FiO2 10/29/17 20:54 88 18 149/62 (91) 99 Room Air 10/29/17 19:21 88 18 151/72 (98) 99 Room Air 10/29/17 17:31 99.0 93 16 138/70 (92) 98 Narrative General: well developed, well nourished, no acute distress HEENT: normocephalic atraumatic, extraocular movements intact, neck supple Abdomen: soft, gravid, nontender, nondistended Extremities: full range of motion Skin: normal coloration, no rashes, no suspicious skin lesions noted Neurologic: cranial nerves 2-12 grossly intact, normal muscle tone, normal gait Psychiatric: normal mood and affect, appropriate FHTs: 135, +accels, no decels, moderate variability, age appropriate [place]: quiet Data Data Vital Signs Reviewed: Yes Orders Orders Urinalysis - C+S If Indicated (10/29/17 17:38) Heart Tones (10/29/17 17:38) Urine Culture (10/29/17 18:00) Acetaminophen (Tylenol) (10/29/17 20:00) Sodium Chlor 0.9% 1000 Ml Inj (Ns 1000 M (10/29/17 20:00) Nitrofurantoin Monohyd Macrocr (Macrobid (10/29/17 20:00) Complete Blood Count With Diff (10/29/17 20:20) Comprehensive Metabolic Panel (10/29/17 20:20) Coag Profile (10/29/17 20:20) Vital Signs (Adult) .ON ADMISSION (10/29/17 23:21) ^ Labor Status (10/29/17 23:21) ^ Non Stress Test (10/29/17 23:21) Drug Screen, Random Urine (10/29/17 23:21) Labs Laboratory Tests Test 10/29/17 18:00 10/29/17 20:43 Urine Color YELLOW Urine Turbidity HAZY Urine pH 7.0 Urine Specific [place] 1.021 Urine Protein 30 Urine Glucose (UA) NEG Urine Ketones 80 Urine Occult Blood NEG Urine Nitrite NEG Urine Bilirubin NEG Urine Urobilinogen LESS THAN 2.0 Urine Leukocyte Esterase MOD Urine WBC 8 Urine Squamous Epithelial Cells 26 Urine Bacteria MOD Urine Mucus FEW Microscopic Urinalysis Comment CULTURE INDICATED White Blood Count 5.9 Red Blood Count 3.32 Hemoglobin 8.2 Hematocrit 25.7 Mean Corpuscular Volume 77.3 Mean Corpuscular Hemoglobin 24.7 Mean Corpuscular Hemoglobin Concent 31.9 Red Cell Distribution Width 14.8 Platelet Count 242 Mean Platelet Volume 8.4 Neutrophils (%) (Auto) 59.8 Lymphocytes (%) (Auto) 32.2 Monocytes (%) (Auto) 6.7 Eosinophils (%) (Auto) 1.1 Basophils (%) (Auto) 0.2 Neutrophils # (Auto) 3.6 Lymphocytes # (Auto) 1.9 Monocytes # (Auto) 0.4 Eosinophils # (Auto) 0.1 Basophils # (Auto) 0.0 CBC Comment DIFF FINAL Differential Comment Prothrombin Time 10.4 Prothromb Time International Ratio 1.0 Activated Partial Thromboplast Time 26.4 Blood Urea Nitrogen 9 Creatinine 0.45 Random Glucose 70 Total Protein 6.8 Albumin 2.4 Calcium Level 8.5 Alkaline Phosphatase 87 Aspartate Amino Transf (AST/SGOT) 11 Alanine Aminotransferase (ALT/SGPT) 12 Total Bilirubin 0.1 Sodium Level 137 Potassium Level 3.2 Chloride Level 105 Carbon Dioxide Level 24.5 Anion Gap 8 Estimat Glomerular Filtration Rate 207 Date/Time Source Procedure Growth Status 10/29/17 18:00 Urine Clean Catch Urine Culture Pending Worksheet MDM Plan 26y/o G1 @ 29.4wks. 1. -- FHTs cat 1 -- no OB complaints -- BP normotensive (119/54) with large cuff -- protein in urine 2' to UTI 2. UTI -- needs macrobid 100mg BID x7d 3. 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 Bains, ED attending, and expressed my findings and concerns. Will transfer pt to ED for further workup. Diagnosis Diagnosis: Primary Impression: 29 weeks gestation of Additional Impressions: Altered awareness, transient UTI (urinary tract infection) Condition: Cornell Rapp MD Oct 29, 2017 23:37
[2017-10-30] VITALS (10 sets, daily range): BP systolic 112–130; BP diastolic 54–62; PULSE 83–105; RESP 15–18; TEMP 98.2–98.3; O2SAT 98
[2017-10-30] MEDS ORDERED: ACETAMINOPHEN 325 MG TAB PO ONE (05:00)
--- NOTE | 2017-10-30 06:13 | RADRPT ---
EXAM DATE/TIME: 10/30/2017 05:18 [place] COMPARISON: No previous studies available for comparison. INDICATIONS : Altered mental status. Cephalgia RADIATION DOSE: 56.35 CTDIvol (mGy) MEDICAL HISTORY : None SURGICAL HISTORY : None. ENCOUNTER: Initial ACUITY: 1 day PAIN SCALE: 8/10 LOCATION: cranial TECHNIQUE: Multiple contiguous axial images were obtained of the head. Using automated exposure control and adj ustment of the mA and/or kV according to patient size, radiation dose was kept as low as reasonably a chievable to obtain optimal diagnostic quality images. DICOM format image data is available electro nically for review and comparison. FINDINGS: CEREBRUM: The ventricles are normal for age. No evidence of midline shift, mass lesion, hemorrhage or acute in farction. No extra-axial fluid collections are seen. POSTERIOR FOSSA: The cerebellum and brainstem are intact. The 4th ventricle is midline. The cerebellopontine angle i s unremarkable. EXTRACRANIAL: The visualized portion of the orbits is intact. SKULL: The calvaria is intact. No evidence of skull fracture. CONCLUSION: Normal examination. Wing Jose MD on October 30, 2017 at 6:10 Board Certified Radiologist. This report was verified electronically.
--- NOTE | 2017-10-30 06:49 | PD ---
Physical Exam Narrative I, Dr. Bains, have reviewed the advance practice practitioner's documentation and am in agreement, met with the patient face to face, made the diagnosis, and the medical decision making was done by me. *My assessment and Findings: Preeclampsia vs. complex migraine vs. TIA vs. conversion disorder 26yo F who is 29 weeks presents to the ED with c/o frontal headache with some blurred vision. Pt said she had left arm numbness with her headache and it resolved. Denies any focal weakness. Pt given acetaminophen x2 and still with headache. UA showed 30 protein, 80 ketone and moderate leukocyte. Pt was given macrobid. Her BP was elevated and had proteinuria so pt was send to OB hospitalist for evaluation of preeclampsia. However, she was clear by OB hospitalist who said she recheck her BP and it is normal and protein can be from UTI and sent back down for neuroimaging. CT brain negative. Pt given second dose of acetaminophen and still with persistent headache and blurry vision. No weakness or numbness in arms or legs. Discuss with Dr. Mcqueen who said medicine does not admit over 16 weeks [address] with Dr. Calix and he said that OB hospitalist covers his group and pt should be admitted to OB hospitalist. I attempted to call OB hospitalist multiple times but was not successful. Sign out to next team to speak to them. Data Data Last Documented VS Vital Signs Date Time Temp Pulse Resp B/P (MAP) Pulse Ox O2 Delivery O2 Flow Rate FiO2 10/30/17 07:45 86 15 129/62 (84) 98 Room Air 10/29/17 23:15 98.8 Orders Orders Urinalysis - C+S If Indicated (10/29/17 17:38) Heart Tones (10/29/17 17:38) Urine Culture (10/29/17 18:00) Acetaminophen (Tylenol) (10/29/17 20:00) Sodium Chlor 0.9% 1000 Ml Inj (Ns 1000 M (10/29/17 20:00) Nitrofurantoin Monohyd Macrocr (Macrobid (10/29/17 20:00) Complete Blood Count With Diff (10/29/17 20:20) Comprehensive Metabolic Panel (10/29/17 20:20) Coag Profile (10/29/17 20:20) Vital Signs (Adult) .ON ADMISSION (10/29/17 23:21) ^ Labor Status (10/29/17 23:21) ^ Non Stress Test (10/29/17 23:21) Drug Screen, Random Urine (10/29/17 23:21) Ct Brain W/O Iv Contrast(Rout) (10/30/17 ) Acetaminophen (Tylenol) (10/30/17 05:00) Labs Laboratory Tests Test 10/29/17 18:00 10/29/17 20:43 Urine Color YELLOW Urine Turbidity HAZY Urine pH 7.0 Urine Specific [place] 1.021 Urine Protein 30 mg/dL Urine Glucose (UA) NEG mg/dL Urine Ketones 80 mg/dL Urine Occult Blood NEG Urine Nitrite NEG Urine Bilirubin NEG Urine Urobilinogen LESS THAN 2.0 MG/DL Urine Leukocyte Esterase MOD Urine WBC 8 /hpf Urine Squamous Epithelial Cells 26 /hpf Urine Bacteria MOD /hpf Urine Mucus FEW /lpf Microscopic Urinalysis Comment CULTURE INDICATED Urine Opiates Screen NEG Urine Barbiturates Screen NEG Urine Amphetamines Screen NEG Urine Benzodiazepines Screen NEG Urine Cocaine Screen NEG Urine Cannabinoids Screen POS White Blood Count 5.9 TH/MM3 Red Blood Count 3.32 MIL/MM3 Hemoglobin 8.2 GM/DL Hematocrit 25.7 % Mean Corpuscular Volume 77.3 FL Mean Corpuscular Hemoglobin 24.7 PG Mean Corpuscular Hemoglobin Concent 31.9 % Red Cell Distribution Width 14.8 % Platelet Count 242 TH/MM3 Mean Platelet Volume 8.4 FL Neutrophils (%) (Auto) 59.8 % Lymphocytes (%) (Auto) 32.2 % Monocytes (%) (Auto) 6.7 % Eosinophils (%) (Auto) 1.1 % Basophils (%) (Auto) 0.2 % Neutrophils # (Auto) 3.6 TH/MM3 Lymphocytes # (Auto) 1.9 TH/MM3 Monocytes # (Auto) 0.4 TH/MM3 Eosinophils # (Auto) 0.1 TH/MM3 Basophils # (Auto) 0.0 TH/MM3 CBC Comment DIFF FINAL Differential Comment Prothrombin Time 10.4 SEC Prothromb Time International Ratio 1.0 RATIO Activated Partial Thromboplast Time 26.4 SEC Blood Urea Nitrogen 9 MG/DL Creatinine 0.45 MG/DL Random Glucose 70 MG/DL Total Protein 6.8 GM/DL Albumin 2.4 GM/DL Calcium Level 8.5 MG/DL Alkaline Phosphatase 87 U/L Aspartate Amino Transf (AST/SGOT) 11 U/L Alanine Aminotransferase (ALT/SGPT) 12 U/L Total Bilirubin 0.1 MG/DL Sodium Level 137 MEQ/L Potassium Level 3.2 MEQ/L Chloride Level 105 MEQ/L Carbon Dioxide Level 24.5 MEQ/L Anion Gap 8 MEQ/L Estimat Glomerular Filtration Rate 207 ML/MIN MDM Supervised Visit with [place]RI[place]: No Diagnosis Primary Impression: 29 weeks gestation of Additional Impressions: UTI (urinary tract infection) Altered awareness, transient Admitting Information Admitting Physician Requests: Observation Condition: Chelsea Schwartz DO Oct 30, 2017 06:49
[2017-10-30] MEDS ORDERED: ACETAMINOPHEN 325 MG TAB PO PRN (08:15)
[2017-10-30] MEDS ORDERED: ONDANSETRON ODT 4 MG TAB PO PRN (08:15)
--- NOTE | 2017-10-30 08:22 | HHI.PR ---
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 She has [facility] with [facility]. She presented to the ED today for "not feeling right". She reports that she woke up from a nap and felt odd. She states that the L side of her body was numb and she "blanked out". She is unable to confirm whether or not she lost consciousness... she states that her grandmother was present and she doesn't remember what happened except that EMS was called. She also states she had dizziness during this time. She has a VEGA as well. Pt was seen/evaluated in the ED and found to have a UTI, AMS, and elevated BPs ( 140s systolic). She was given macrobid PO and sent to L&D for evaluation for possible preE. She had normal BPs with a large cuff and was ruled out for preE. I personally called Dr. Baisn in the ED and voiced concerns for new neurologic symptoms and requested imaging and a UDS. I was then called by ED this morning stating that pt had negative neuroimaging but needs to be admitted for neurology workup. ED stated that Medicine will not admit pts > 16wks. ED note states that they tried calling me multiple times without success. No calls were received until 7:35am at which time I accepted pt for admission. I was in the ED from 5:45am on and no calls were received prior. Dr. Bains's note references that she called Dr. Bender first. Uncertain if she had incorrect number for OB Hospitalist. +FM. No LOF or VB. No contractions or OB complaints. Weeks Gestation: 29 Para: 0 : 1 History Past Medical History Medical History: Denies Significant Hx Obstetric History Obstetric History 1. current Past Surgical History Surgical History: No Previous Surgery Family History Family History: Negative Social History Alcohol Use: No Tobacco Use: No Substance Abuse: No Allergies-Medications (Allergen,Severity, Reaction): Coded Allergies: apple (Unverified Allergy, Intermediate, RASH, 10/21/17) All over body penicillin G (Unverified Allergy, Intermediate, SWELLING/RASH, 10/21/17) all over body Home Meds Active Scripts Terconazole Vaginal Cream (Terazol 7 Vaginal Cream) 0.4 % Cream, 1 APPL VAGINAL HS for Fungal Infection, #45 GM 0 Refills 1 applicatorful intravaginally x 7 nights Prov:IamValralph BRADLEY 09/29/17 Reported Medications Vit-Iron Carbonyl ( Plus Iron 29-1 mg) 29 Mg Iron-1 Mg Tab, 1 TAB PO DAILY for Nutritional Supplement, #30 TAB 0 Refills 08/06/17 Review of Systems Except as stated in HPI: all other systems reviewed are Neg Physical Exam Vital Signs Date Time Temp Pulse Resp B/P (MAP) Pulse Ox O2 Delivery O2 Flow Rate FiO2 10/29/17 20:54 88 18 149/62 (91) 99 Room Air 10/29/17 19:21 88 18 151/72 (98) 99 Room Air 10/29/17 17:31 99.0 93 16 138/70 (92) 98 Narrative General: well developed, well nourished, no acute distress HEENT: normocephalic atraumatic, extraocular movements intact, neck supple Abdomen: soft, gravid, nontender, nondistended Extremities: full range of motion Skin: normal coloration, no rashes, no suspicious skin lesions noted Neurologic: cranial nerves 2-12 grossly intact, normal muscle tone, normal gait Psychiatric: normal mood and affect, appropriate FHTs: 135, +accels, no decels, moderate variability, age appropriate [place]: quiet Data Data Vital Signs Reviewed: Yes Labs Laboratory Tests Test 10/29/17 18:00 10/29/17 20:43 Urine Color YELLOW Urine Turbidity HAZY Urine pH 7.0 Urine Specific [place] 1.021 Urine Protein 30 Urine Glucose (UA) NEG Urine Ketones 80 Urine Occult Blood NEG Urine Nitrite NEG Urine Bilirubin NEG Urine Urobilinogen LESS THAN 2.0 Urine Leukocyte Esterase MOD Urine WBC 8 Urine Squamous Epithelial Cells 26 Urine Bacteria MOD Urine Mucus FEW Microscopic Urinalysis Comment CULTURE INDICATED White Blood Count 5.9 Red Blood Count 3.32 Hemoglobin 8.2 Hematocrit 25.7 Mean Corpuscular Volume 77.3 Mean Corpuscular Hemoglobin 24.7 Mean Corpuscular Hemoglobin Concent 31.9 Red Cell Distribution Width 14.8 Platelet Count 242 Mean Platelet Volume 8.4 Neutrophils (%) (Auto) 59.8 Lymphocytes (%) (Auto) 32.2 Monocytes (%) (Auto) 6.7 Eosinophils (%) (Auto) 1.1 Basophils (%) (Auto) 0.2 Neutrophils # (Auto) 3.6 Lymphocytes # (Auto) 1.9 Monocytes # (Auto) 0.4 Eosinophils # (Auto) 0.1 Basophils # (Auto) 0.0 CBC Comment DIFF FINAL Differential Comment Prothrombin Time 10.4 Prothromb Time International Ratio 1.0 Activated Partial Thromboplast Time 26.4 Blood Urea Nitrogen 9 Creatinine 0.45 Random Glucose 70 Total Protein 6.8 Albumin 2.4 Calcium Level 8.5 Alkaline Phosphatase 87 Aspartate Amino Transf (AST/SGOT) 11 Alanine Aminotransferase (ALT/SGPT) 12 Total Bilirubin 0.1 Sodium Level 137 Potassium Level 3.2 Chloride Level 105 Carbon Dioxide Level 24.5 Anion Gap 8 Estimat Glomerular Filtration Rate 207 Date/Time Source Procedure Growth Status 10/29/17 18:00 Urine Clean Catch Urine Culture Pending Worksheet MDM Plan 26y/o G1 @ 29.4wks. 1. -- no OB complaints -- PNV qday -- NST BID 2. UTI -- continue macrobid 100mg BID x7d (needs Rx at discharge) 3. 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
[2017-10-30] MEDS ORDERED: MULTIVIT/MIN/PREN/FOL AC/IRON PRENATAL TAB PO SCH (09:00)
[2017-10-30] MEDS: NITROFURANTOIN MONOHYD MACROCR 100 MG CAP PO SCH ×2 (09:24→17:56)
[2017-10-30] MEDS ORDERED: FERROUS SULFATE 325 MG (65 MG ELEMENTAL IRON) TAB PO SCH (09:45)
[2017-10-30 10:25] LABS: HEMATOCRIT 26.7 % (35.0-46.0); HEMOGLOBIN 8.9 GM/DL (11.6-15.3); MEAN CELL VOLUME 76.8 FL (80.0-100.0); MEAN CORPUSCULAR HEMOGLOBIN 25.6 PG (27.0-34.0); MEAN CORPUSCULAR HGB CONC 33.3 % (32.0-36.0); MEAN PLATELET VOLUME 8.3 FL (7.0-11.0); PLATELET COUNT 236 TH/MM3 (150-450); RED BLOOD COUNT 3.48 MIL/MM3 (4.00-5.30); RED CELL DISTRIBUTION WIDTH 14.4 % (11.6-17.2); WHITE BLOOD COUNT 5.8 TH/MM3 (4.0-11.0)
[2017-10-30 10:37] LABS: BICARBONATE 23.6 MEQ/L (21.0-32.0); CALCIUM 8.8 MG/DL (8.5-10.1); CREATININE 0.36 MG/DL (0.50-1.00)
--- NOTE | 2017-10-30 10:57 | PD.CONS ---
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 Reason for Consult stroke Primary Care Physician No Primary Care Physician History of Present Illness pt gone to mri Review of Systems All other ROS: ROS reviewed as documented in chart Past Family Social History Allergies: Coded Allergies: apple (Unverified Allergy, Intermediate, RASH, 10/21/17) All over body penicillin G (Unverified Allergy, Intermediate, SWELLING/RASH, 10/21/17) all over body Active Ordered Medications Current Medications Medications (Trade) Dose Ordered Sig/Reilly Route Start Time Stop Time Status Last Admin (Tylenol) 650 mg Q4H PRN PO 10/30/17 08:15 (Stuartnatal Plus 3 ) 1 tab DAILY PO 10/30/17 09:00 10/30/17 09:24 (Zofran Odt) 4 mg Q6H PRN PO 10/30/17 08:15 (Macrobid) 100 mg BIDPC PO 10/30/17 09:00 10/30/17 09:24 (Ferrous Sulfate) 325 mg BID PO 10/30/17 09:45 10/30/17 09:49 Exam I&O / VS Vital Signs Date Time Temp Pulse Resp B/P (MAP) Pulse Ox O2 Delivery O2 Flow Rate FiO2 10/30/17 08:59 84 112/54 (73) 10/30/17 08:58 98.3 18 10/30/17 07:45 86 15 129/62 (84) 98 Room Air 10/30/17 04:09 83 16 129/59 (82) 98 Room Air 10/29/17 23:50 88 10/29/17 23:45 87 10/29/17 23:40 87 10/29/17 23:35 86 10/29/17 23:30 84 10/29/17 23:25 84 10/29/17 23:20 82 10/29/17 23:15 87 10/29/17 23:15 98.8 10/29/17 23:10 92 10/29/17 23:05 99 10/29/17 23:03 91 119/54 (75) 10/29/17 20:54 88 18 149/62 (91) 99 Room Air 10/29/17 19:21 88 18 151/72 (98) 99 Room Air 10/29/17 17:31 99.0 93 16 138/70 (92) 98 Garewal,Salbador MD Oct 30, 2017 10:57
--- NOTE | 2017-10-30 11:10 | RADRPT ---
EXAM DATE/TIME: 10/30/2017 10:40 [facility] COMPARISON: No previous studies available for comparison. INDICATIONS : Cephalgia. Left side weakness, resolved. MEDICAL HISTORY : . SURGICAL HISTORY : None. ENCOUNTER: Initial ACUITY: 1 day PAIN SCORE: 5/10 LOCATION: cranial Please note a normal MRA of the brain does not entirely exclude the possibility of a small aneurysm, nor the possibility of distal intracranial vessel disease. TECHNIQUE: MR venography of the brain was performed without contrast with multiplanar and 3D reconstructions. FINDINGS: Good visualization of superficial and deep venous system. No thrombosis. CONCLUSION: Negative for venous thrombosis. Jean-Claude Odell MD FACR on October 30, 2017 at 11:06 Board Certified Radiologist. This report was verified electronically.
--- NOTE | 2017-10-30 11:10 | RADRPT ---
EXAM DATE/TIME: 10/30/2017 10:40 [facility] COMPARISON: No previous studies available for comparison. INDICATIONS : Cephalgia. Left side weakness, resolved. MEDICAL HISTORY : . SURGICAL HISTORY : None. ENCOUNTER: Initial ACUITY: 1 day PAIN SCORE: 5/10 LOCATION: cranial Please note a normal MRA of the brain does not entirely exclude the possibility of a small aneurysm, nor the possibility of distal intracranial vessel disease. TECHNIQUE: 3D time of flight MRA was performed. Source images, multiplanar STS MIP, and 3D volume MIP reconstru ctions were reviewed. FINDINGS: There is excellent visualization of the major intracranial arteries out to the second-order branch ve ssels. There is no evidence for aneurysm, vessel truncation or stenosis, and no evidence for vascula r malformation. CONCLUSION: Negative MRA of the brain. Jean-Claude Odell MD FACR on October 30, 2017 at 11:06 Board Certified Radiologist. This report was verified electronically.
--- NOTE | 2017-10-30 11:12 | RADRPT ---
EXAM DATE/TIME: 10/30/2017 10:40 [facility] COMPARISON: No previous studies available for comparison. INDICATIONS : Cephalgia. Left side weakness, resolved. MEDICAL HISTORY : . SURGICAL HISTORY : None. ENCOUNTER: Initial ACUITY: 1 day PAIN SCORE: 5/10 LOCATION: cranial TECHNIQUE: Multiplanar, multisequence MRI of the brain was performed without contrast. FINDINGS: CEREBRUM: The ventricles are normal for age. No evidence of midline shift, mass lesion, hemorrhage or acute in farction. No extraaxial fluid collections are seen. The pituitary gland and suprasellar cistern are normal in configuration. WHITE MATTER: No significant signal abnormalities are seen in the white matter. POSTERIOR FOSSA: The cerebellum and brainstem are intact. The 4th ventricle is midline. The cerebellopontine angle is unremarkable. The cerebellar tonsils are normal in position. DIFFUSION IMAGING: No focal areas of restricted diffusion are seen. No evidence of acute infarction. EXTRACRANIAL: The visualized portions of the orbits and paranasal sinuses are unremarkable. CONCLUSION: Normal MRI brain. Jean-Claude Odell MD FACR on October 30, 2017 at 11:07 Board Certified Radiologist. This report was verified electronically.
[2017-10-30] MEDS ORDERED: ACETAMIN 325 MG/BUTALBITAL 50 MG/CAFFEINE 40 MG TAB PO ONE (14:15)
[2017-10-30] MEDS ORDERED: MORPHINE SULFATE 2 MG/ML INJ IV ONE (14:15)
[2017-10-30] MEDS ORDERED: ACETAMIN 325 MG/BUTALBITAL 50 MG/CAFFEINE 40 MG TAB PO PRN (14:45)
[2017-10-30] MEDS ORDERED: POTASSIUM CHLORIDE INJ 40 MEQ in SODIUM CHLOR 0.45% 1000 ML INJ 1,000 ML IV SCH (14:45)
[2017-10-30] MEDS ORDERED: MORPHINE SULFATE 4 MG/ML INJ IV PUSH PRN (15:00)
--- NOTE | 2017-10-30 19:06 | PD.OB.ANTE ---
Subjective Interval History Patient is 26-year-old white female G1 at 29 - 30 weeks who is been admitted for altered mental status and severe headache. Her cup date is negative CT, MRI , and EEG of the head all within normal limits, neurology consult was put and he came to see the patient she was done an MRI and was contacted later and related to us that all her tests were negative then she could be discharged from his standpoint, and since tomorrow's Benji Alyx I doubt very seriously wearability get anybody else come see her and keeping her here not practical endeavor Objective Vital Signs Vital Signs Date Time Temp Pulse Resp B/P (MAP) Pulse Ox O2 Delivery O2 Flow Rate FiO2 10/30/17 15:56 98.3 18 10/30/17 15:55 96 130/58 (82) 10/30/17 13:47 98 10/30/17 13:44 95 119/56 (77) 10/30/17 12:39 98.2 10/30/17 11:24 105 117/54 (75) 10/30/17 08:59 84 112/54 (73) 10/30/17 08:58 98.3 18 10/30/17 07:45 86 15 129/62 (84) 98 Room Air 10/30/17 04:09 83 16 129/59 (82) 98 Room Air 10/29/17 23:50 88 10/29/17 23:45 87 10/29/17 23:40 87 10/29/17 23:35 86 10/29/17 23:30 84 10/29/17 23:25 84 10/29/17 23:20 82 10/29/17 23:15 87 10/29/17 23:15 98.8 10/29/17 23:10 92 10/29/17 23:05 99 10/29/17 23:03 91 119/54 (75) 10/29/17 20:54 88 18 149/62 (91) 99 Room Air 10/29/17 19:21 88 18 151/72 (98) 99 Room Air Lab & Micro Results Test 10/29/17 20:43 10/30/17 10:00 White Blood Count 5.9 TH/MM3 5.8 TH/MM3 Red Blood Count 3.32 MIL/MM3 3.48 MIL/MM3 Hemoglobin 8.2 GM/DL 8.9 GM/DL Hematocrit 25.7 % 26.7 % Mean Corpuscular Volume 77.3 FL 76.8 FL Mean Corpuscular Hemoglobin 24.7 PG 25.6 PG Mean Corpuscular Hemoglobin Concent 31.9 % 33.3 % Red Cell Distribution Width 14.8 % 14.4 % Platelet Count 242 TH/MM3 236 TH/MM3 Mean Platelet Volume 8.4 FL 8.3 FL Neutrophils (%) (Auto) 59.8 % Lymphocytes (%) (Auto) 32.2 % Monocytes (%) (Auto) 6.7 % Eosinophils (%) (Auto) 1.1 % Basophils (%) (Auto) 0.2 % Neutrophils # (Auto) 3.6 TH/MM3 Lymphocytes # (Auto) 1.9 TH/MM3 Monocytes # (Auto) 0.4 TH/MM3 Eosinophils # (Auto) 0.1 TH/MM3 Basophils # (Auto) 0.0 TH/MM3 CBC Comment DIFF FINAL Differential Comment Prothrombin Time 10.4 SEC Prothromb Time International Ratio 1.0 RATIO Activated Partial Thromboplast Time 26.4 SEC Blood Urea Nitrogen 9 MG/DL 6 MG/DL Creatinine 0.45 MG/DL 0.36 MG/DL Random Glucose 70 MG/DL 67 MG/DL Total Protein 6.8 GM/DL Albumin 2.4 GM/DL Calcium Level 8.5 MG/DL 8.8 MG/DL Alkaline Phosphatase 87 U/L Aspartate Amino Transf (AST/SGOT) 11 U/L Alanine Aminotransferase (ALT/SGPT) 12 U/L Total Bilirubin 0.1 MG/DL Sodium Level 137 MEQ/L 137 MEQ/L Potassium Level 3.2 MEQ/L 3.4 MEQ/L Chloride Level 105 MEQ/L 105 MEQ/L Carbon Dioxide Level 24.5 MEQ/L 23.6 MEQ/L Anion Gap 8 MEQ/L 8 MEQ/L Estimat Glomerular Filtration Rate 207 ML/MIN 268 ML/MIN Date/Time Source Procedure Growth Status 10/29/17 18:00 Urine Clean Catch Urine Culture - Preliminary IMMATURE GROWTH - REINCUBATE Resulted Physical Exam GENERAL: Well-nourished, well-developed patient. CARDIOVASCULAR: Regular rate and rhythm without murmurs, gallops, or rubs. RESPIRATORY: Breath sounds equal bilaterally. No accessory muscle use. ABDOMEN/GI: Abdomen soft, non-tender. Fundus: [-] GENITOURINARY: External Genitalia: intact and normal in appearance FHT's: Category: [1-] Baseline: [133-] Reactive: [yes-] Variability: [-mod] Decels: [0-] EXTREMITIES: No cyanosis or edema, non-tender, without signs of DVT. Assessment and Plan Assessment and Plan Since 29 week intrauterine with some altered mental status is for headache and numbness on one side of her body, those symptoms have resolved since her admission. Her workup is negative for abnormalities in MRI, CT, EEG. Neurology is clear the patient discharged from their standpoint Plan is to discharge the patient with Fioricet for headache pain, iron 3 times a day for anemia, potassium supplement for of hypokalemia and she is to [facility] Tigre Metzger II, MD Oct 30, 2017 19:06
[2017-10-30] MEDS ORDERED: FERR325T18 PO (19:11)
[2017-10-30] MEDS ORDERED: POTA1TAB77 PO (19:14)
[2017-10-30] MEDS ORDERED: BUTA1CAP PO (19:15)
[2017-10-31] MEDS ORDERED: INFLUENZA VIRUS VACCINE (QUADRIVALENT) 0.5 ML SYR IM ONE (10:00)
--- NOTE | 2017-10-31 10:32 | MG ---
cc: DAVE MARTINEZ MD Sex: F DATE OF : 1990 EE. DATE OF STUDY: 10/30/2017 DESCRIPTION: 26-year-old with history of some confusion, , Depression. DESCRIPTION: 8-9 Hz alpha activity, 20-50 microvolts. Good attenuation of the frontal channels, good anterior-posterior gradient. Generalized slowing with transition into drowsy state followed by stage I sleep and stage II sleep with the appearance of K complexes and spindles. Appeared to be snoring during the recording. Reasonable driving with photic stimulation. Single EKG showing sinus rhythm. INTERPRETATION Normal awake sleep EEG. Clinical correlation. Dave Martinez MD MG/ROMY /9:04 AM /10:14 AM
== END 2017-10-30 19:30 | disposition home or self-care (01) ==
LOC: NEPE 17:23 → H2EA 10-30 08:03
PROVIDERS: ADMIT Obstetrics & Gynecology; ATTEND Obstetrics & Gynecology
DX: O23.43 Unspecified infection of urinary tract in pregnancy, third trimester (principal); R51 Headache; O99.013 Anemia complicating pregnancy, third trimester; R42 Dizziness and giddiness; E87.6 Hypokalemia; I10 Essential (primary) hypertension; R73.03 Prediabetes; Z3A.29 29 weeks gestation of pregnancy
CPT/HCPCS: 70450; 70544; 70551; 80048; 80053; 80307; 81001; 85025; 85027; 85610; 85730; 87086; 95819; 96365; 96375; 99285; G0378; J2270; J3480; J7030

== ENCOUNTER 2017-10-31 19:29 | Emergency (ER) | payer OTHER ==
[~2017-10-31 19:29] MED LIST changes: +BUTA1CAP PO; +FERR325T18 PO; +POTA1TAB77 PO
[2017-10-31 20:15] VITALS: RESP 20; TEMP 98
[2017-10-31 20:42] LABS: BACTERIA, URINE RARE /hpf; BILIRUBIN, URINE NEG (NEG); BLOOD, URINE LARGE (NEG); GLUCOSE,URINE NEG (NEG); KETONE, URINE NEG (NEG); MUCUS URINE FEW /lpf (OCC); NITRITE,URINE NEG (NEG); PH, URINE 6.5 (5.0-8.5); SQUAMOUS EPITHELIAL CELL URINE 16 /hpf (0-5); URINE COLOR YELLOW (YELLW/STRAW); URINE LEUKOCYTE ESTERASE SMALL (NEG)
--- NOTE | 2017-10-31 21:15 | HHI.PR ---
Subjective Remarks NST report Indications: IUP at 29 weeks, orbit obesity, vaginal bleeding, gestational hypertension, hypokalemia, gestational diabetes heart tones with baseline in the 130s, moderate long-term variability, good accelerations, no decelerations noted. This is a category 1 heart rate tracing and reactive NST for gestational age. Final diagnosis:IUP at 29 weeks, orbit obesity, gestational hypertension, hypokalemia, gestational diabetes, no evidence of vaginal bleeding, hematuria Follow-up as clinically indicated Val Rubin MD Oct 31, 2017 21:15
--- NOTE | 2017-10-31 21:23 | PD ---
HPI Chief Complaint Contractions, vaginal bleeding Travel History International Travel<30 Days: No Contact w/Intl Traveler<30Days: No Known Affected Area: No History of Present Illness HPI 26-year-old , IUP at 29.6 care complicated by morbid obesity, A1 diabetes, gestational hypertension, hypokalemia, anemia The patient presents reporting a gush of blood in the toilet. She reports that there was blood on the tissue following this when she wiped. There were no aggravating or alleviating factors, and the patient denies any trauma or recent intercourse. The patient reports that at the time this happened she felt like she needed to have a bowel movement so attempted to do so but reports she did not strain. She reports contractions that are occurring every 15 minutes. She denies any aggravating, alleviating, or attempted treatments for these. The patient reports good movement. She denies any leaking of fluid. Weeks Gestation: 29 Para: 0 : 1 History Past Medical History Narrative Medical Morbid obesity, anemia Obstetric History Obstetric History Past Surgical History Narrative Surgical Denies Family History Narrative Family History DM, HTN, lupus, migraine headaches Social History Alcohol Use: No Tobacco Use: No Substance Abuse: No Allergies-Medications (Allergen,Severity, Reaction): Coded Allergies: apple (Unverified Allergy, Intermediate, RASH, 10/21/17) All over body penicillin G (Unverified Allergy, Intermediate, SWELLING/RASH, 10/21/17) all over body Home Meds Active Scripts Terconazole Vaginal Cream (Terazol 7 Vaginal Cream) 0.4 % Cream, 1 APPL VAGINAL HS for Fungal Infection, #45 GM 0 Refills 1 applicatorful intravaginally x 7 nights Prov:Val Vitale 09/29/17 Reported Medications Dnlnxjlnsg-Zabpsqlckrnpk-Oxbnzcfd (Fioricet) 50-300-40 Mg Cap, 1 CAP PO Q4H Y for HEADACHE, #30 CAP 1 Refill 10/30/17 Potassium Chloride ER (K-Tab) 8 Meq Tab, 8 MEQ PO BID for Electrolyte Replacement, #60 TAB 2 Refills 10/30/17 Ferrous Sulfate (Ferrous Sulfate) 325 Mg (65 Mg Iron) Tablet, 325 MG PO BIDPC for Nutritional Supplement, #60 TAB 0 Refills 10/30/17 Vit-Iron Carbonyl ( Plus Iron 29-1 mg) 29 Mg Iron-1 Mg Tab, 1 TAB PO DAILY for Nutritional Supplement, #30 TAB 0 Refills 08/06/17 Review of Systems Except as stated in HPI: all other systems reviewed are Neg Physical Exam Narrative GENERAL: Well-nourished, well-developed patient. SKIN: Warm and dry. HEAD: Normocephalic and atraumatic. EYES: No scleral icterus. No injection or drainage. ENT: No nasal drainage noted. Mucous membranes pink. Airway patent. NECK: Supple, trachea midline. No JVD. CARDIOVASCULAR: Regular rate and rhythm without murmurs, gallops, or rubs. RESPIRATORY: Breath sounds equal bilaterally. No accessory muscle use. BREASTS: Deferred ABDOMEN/GI: Abdomen soft, non-tender, bowel sounds present, no rebound, no guarding Gravid GENITOURINARY: External Genitalia: intact and normal in appearance. Normal BUS glands. Speculum examination was performed that shows grossly normal rugae, physiologic discharge, and no cervical or vaginal masses. No vaginal bleeding was noted. No pinkish tinge discharge was noted. There was no blood evident at the urethra or anus. SVE was closed/thick/high/posterior. fibronectin was obtained with the speculum examination FHT's: heart tones in the 130s with moderate long-term variability, good accelerations, no decelerations noted with a category 1 heart rate tracing that is reactive for gestational age EXTREMITIES: No cyanosis or edema. BACK: Nontender without obvious deformity. No CVA tenderness. NEUROLOGICAL: Awake and alert. Motor and sensory grossly within normal limits. Five out of 5 muscle strength in all muscle groups. Normal speech. Psychiatric: Grossly normal memory and affect, although patient is somewhat slow of speech Musculoskeletal: Grossly normal range of motion, gait, muscle strength Data Data Orders Orders Vital Signs (Adult) .ON ADMISSION (10/31/17 20:03) ^ Labor Status (10/31/17 20:03) Urinalysis - C+S If Indicated (10/31/17 20:03) ^ Non Stress Test (10/31/17 20:03) Fibronectin (10/31/17 20:49) Potassium Chloride (Kcl) (11/01/17 09:00) Labs Laboratory Tests Test 10/31/17 19:50 12/24/17 20:15 Urine Color YELLOW Urine Turbidity HAZY Urine pH 6.5 Urine Specific [place] 1.026 Urine Protein 30 Urine Glucose (UA) NEG Urine Ketones NEG Urine Occult Blood LARGE Urine Nitrite NEG Urine Bilirubin NEG Urine Urobilinogen 2.0 Urine Leukocyte Esterase SMALL Urine RBC Urine WBC 7 Urine Squamous Epithelial Cells 16 Urine Bacteria RARE Urine Mucus FEW Microscopic Urinalysis Comment CULT NOT INDICATED MDM Plan Assessment/plan: 1. IUP at 29.6 2. Vaginal bleeding: No evidence of vaginal bleeding on examination with no blood or even pink tinged discharge noted. Strict bleeding precautions are given. 3. contractions: fibronectin is negative and patient's vaginal exam is closed/thick/high and posterior. Contractions resolved with IV fluids. Strict labor precautions. 4. Hematuria: There was no evidence of vaginal bleeding the patient does have hematuria noted. The previous urine culture was reviewed and was suspicious for contaminant. Urine culture today is not indicated. Patient to follow up with primary MLudivina at next visit. 5. Morbid obesity 6. A1 gestational diabetes: Continue ADA diet 7. Gestational hypertension: The cramps she recently ruled out 8. Hypokalemia: Patient has prescription for K Dur, will give 40 mEq of potassium prior to discharge 9. Anemia: Encouraged by mouth iron 10. well-being: Reassuring testing with category 1 heart rate tracing and reactive NST. kick counts daily 11. Follow up with primary MLudivina in 2-3 days or sooner if needed Diagnosis Diagnosis: Primary Impression: 29 weeks gestation of Additional Impressions: Hematuria Hematuria, gross False labor before 37 completed weeks of gestation, third trimester Disposition: 01 DISCHARGE HOME Condition: Val Sheth MD Oct 31, 2017 21:22
[2017-10-31] MEDS ORDERED: POTASSIUM CHLORIDE 20 MEQ CONTROLLED RELEASE TAB PO SCH (21:45)
[2017-11-01] MEDS ORDERED: POTASSIUM CHLORIDE 20 MEQ CONTROLLED RELEASE TAB PO SCH (09:00)
== END 2017-10-31 21:54 | disposition home or self-care (01) ==
LOC: HOBED 19:29
DX: O47.03 False labor before 37 completed weeks of gestation, third trimester (principal); O24.410 Gestational diabetes mellitus in pregnancy, diet controlled; O99.013 Anemia complicating pregnancy, third trimester; D64.9 Anemia, unspecified; O99.283 Endocrine, nutritional and metabolic diseases complicating pregnancy, third trimester; E87.6 Hypokalemia; O99.213 Obesity complicating pregnancy, third trimester; E66.01 Morbid (severe) obesity due to excess calories; R31.0 Gross hematuria; Z3A.29 29 weeks gestation of pregnancy
CPT/HCPCS: 81001; 82731; 99284

== ENCOUNTER 2017-11-09 15:23 | Emergency (ER) | payer OTHER ==
[2017-11-09 16:25] LABS: BACTERIA, URINE RARE /hpf; BILIRUBIN, URINE NEG (NEG); BLOOD, URINE NEG (NEG); GLUCOSE,URINE NEG (NEG); KETONE, URINE TRACE mg/dL (NEG); MUCUS URINE MANY /lpf (OCC); NITRITE,URINE NEG (NEG); PH, URINE 6.5 (5.0-8.5); SQUAMOUS EPITHELIAL CELL URINE 11 /hpf (0-5); URINE COLOR YELLOW (YELLW/STRAW); URINE LEUKOCYTE ESTERASE MOD (NEG)
[2017-11-09 16:42] LABS: BASOPHIL % 0.2 % (0.0-2.0); EOSINOPHIL # 0.1 TH/MM3 (0-0.4); EOSINOPHIL % 0.9 % (0.0-4.0); HEMATOCRIT 27.2 % (35.0-46.0); HEMOGLOBIN 8.6 GM/DL (11.6-15.3); LYMPH % 26.9 % (9.0-44.0); LYMPHOCYTE # 1.7 TH/MM3 (1.0-4.8); MEAN CELL VOLUME 75.9 FL (80.0-100.0); MEAN CORPUSCULAR HGB CONC 31.6 % (32.0-36.0); MEAN PLATELET VOLUME 8.5 FL (7.0-11.0); MONO % 7.2 % (0.0-8.0); MONOCYTE # 0.4 TH/MM3 (0-0.9); NEUT % 64.8 % (16.0-70.0); PLATELET COUNT 264 TH/MM3 (150-450); RED BLOOD COUNT 3.59 MIL/MM3 (4.00-5.30); RED CELL DISTRIBUTION WIDTH 15.1 % (11.6-17.2); WHITE BLOOD COUNT 6.2 TH/MM3 (4.0-11.0)
[2017-11-09] MEDS ORDERED: AZIT500T2 PO (17:41)
--- NOTE | 2017-11-09 17:47 | PD ---
HPI Chief Complaint vaginal bleeding Date Seen: Nov 09, 2017 Time Seen: 15:57 (Yen Dong MD R2) Travel History International Travel<30 Days: No Contact w/Intl Traveler<30Days: No (Yen Dong MD R2) History of Present Illness HPI 26-year-old , IUP at 31.1wks gestation. EDC 01/10/18. [facility] care with [facility]. care complicated by morbid obesity, A1 diabetes, gestational hypertension, hypokalemia, anemia, late and limited PNC. The patient presents reporting light vaginal bleeding since yesterday. She reports small clots as well, only occurring when she wipes x 4 trips to bathroom. This has resolved this afternoon. There were no aggravating or alleviating factors, and the patient denies any trauma or recent intercourse. No dysuria or urinary frequency. Denies contractions. The patient reports good movement. She denies any leaking of fluid. Also has headache since last night, took Tylenol yesterday but not today. Weeks Gestation: 0 Para: 1 (Yen Dong MD R2) History Past Medical History Narrative Medical Morbid obesity, anemia (Yen Dong MD R2) Obstetric History Obstetric History (Yen Dong MD) Past Surgical History Surgical History: No Previous Surgery (Yen Dong MD) Family History Narrative Family History DM, HTN, lupus, migraine headaches (Yen Dong MD R2) Allergies-Medications (Allergen,Severity, Reaction): Coded Allergies: apple (Unverified Allergy, Intermediate, RASH, 10/21/17) All over body penicillin G (Unverified Allergy, Intermediate, SWELLING/RASH, 10/21/17) all over body Home Meds Active Scripts Azithromycin (Azithromycin) 500 Mg Tab, 1000 MG PO DAILY for Infection, #2 TAB 0 Refills Prov:Yen Dong MD R2 11/09/17 Terconazole Vaginal Cream (Terazol 7 Vaginal Cream) 0.4 % Cream, 1 APPL VAGINAL HS for Fungal Infection, #45 GM 0 Refills 1 applicatorful intravaginally x 7 nights Prov:Val Vitale 09/29/17 Reported Medications Eidtomkskb-Wjdzargykynek-Mcqmkuyk (Fioricet) 50-300-40 Mg Cap, 1 CAP PO Q4H Y for HEADACHE, #30 CAP 1 Refill 10/30/17 Potassium Chloride ER (K-Tab) 8 Meq Tab, 8 MEQ PO BID for Electrolyte Replacement, #60 TAB 2 Refills 10/30/17 Ferrous Sulfate (Ferrous Sulfate) 325 Mg (65 Mg Iron) Tablet, 325 MG PO BIDPC for Nutritional Supplement, #60 TAB 0 Refills 10/30/17 Vit-Iron Carbonyl ( Plus Iron 29-1 mg) 29 Mg Iron-1 Mg Tab, 1 TAB PO DAILY for Nutritional Supplement, #30 TAB 0 Refills 08/06/17 Physical Exam Narrative GENERAL: Well-nourished, well-developed female in no apparent distress. SKIN: Warm and dry. No rashes or ecchymoses. HEAD: Normocephalic and atraumatic. EYES: No scleral icterus. No injection or drainage. ENT: No nasal drainage noted. Mucous membranes pink. Airway patent. NECK: Supple, trachea midline. No JVD. CARDIOVASCULAR: Regular rate and rhythm without murmurs, gallops, or rubs. RESPIRATORY: Breath sounds equal bilaterally. No accessory muscle use. BREASTS: Deferred ABDOMEN/GI: Gravid GENITOURINARY: External Genitalia: intact and normal in appearance. Normal BUS glands. Speculum examination was performed that shows grossly normal rugae, physiologic discharge, and no cervical or vaginal masses. No vaginal bleeding was noted. No pinkish tinge discharge was noted. There was no blood evident at the urethra or anus. The cervix is erythematous and appears to be friable at the posterior half. SVE was 1/thick/high/midline. FHT's: heart tones in the 150s with moderate long-term variability, good accelerations, no decelerations noted with a category 1 heart rate tracing that is reactive for gestational age EXTREMITIES: No cyanosis or edema. BACK: Nontender without obvious deformity. No CVA tenderness. NEUROLOGICAL: Awake and alert. Motor and sensory grossly within normal limits. Five out of 5 muscle strength in all muscle groups. Normal speech. Psychiatric: Grossly normal memory and affect, although patient is somewhat slow of speech Musculoskeletal: Grossly normal range of motion, gait, muscle strength (Yen Dong MD R2) Data Data Vital Signs Reviewed: Yes (Afebrile, BP wnl) Orders Orders Vital Signs (Adult) .ON ADMISSION (11/09/17 15:57) ^ Labor Status (11/09/17 15:57) ^ Non Stress Test (11/09/17 15:57) Urinalysis - C+S If Indicated (11/09/17 16:11) ^ Hydration (11/09/17 16:11) Wet Prep Profile (11/09/17 16:11) Gc And Chlamydia Pcr (11/09/17 16:11) Drug Screen, Random Urine (11/09/17 16:11) Type And Screen (11/09/17 16:14) Complete Blood Count With Diff (11/09/17 16:15) Hepatitis Profile (11/09/17 16:15) Rapid Plasma Regin (Rpr) W Ttr (11/09/17 16:15) Rubella Immune Status (11/09/17 16:15) Labs Laboratory Tests Test 11/09/17 16:10 11/09/17 16:15 11/09/17 16:20 Urine Color YELLOW Urine Turbidity HAZY Urine pH 6.5 Urine Specific [place] 1.032 Urine Protein 30 Urine Glucose (UA) NEG Urine Ketones TRACE Urine Occult Blood NEG Urine Nitrite NEG Urine Bilirubin NEG Urine Urobilinogen 2.0 Urine Leukocyte Esterase MOD Urine RBC 2 Urine WBC 5 Urine Squamous Epithelial Cells 11 Urine Bacteria RARE Urine Mucus MANY Microscopic Urinalysis Comment CULT NOT INDICATED Clue Cells (Wet Prep) NONE SEEN Vaginal Trichomonas (Wet Prep) NONE SEEN Vaginal Yeast (Wet Prep) NONE SEEN Urine Opiates Screen NEG Urine Barbiturates Screen NEG Urine Amphetamines Screen NEG Urine Benzodiazepines Screen NEG Urine Cocaine Screen NEG Urine Cannabinoids Screen POS White Blood Count 6.2 Red Blood Count 3.59 Hemoglobin 8.6 Hematocrit 27.2 Mean Corpuscular Volume 75.9 Mean Corpuscular Hemoglobin 24.0 Mean Corpuscular Hemoglobin Concent 31.6 Red Cell Distribution Width 15.1 Platelet Count 264 Mean Platelet Volume 8.5 Neutrophils (%) (Auto) 64.8 Lymphocytes (%) (Auto) 26.9 Monocytes (%) (Auto) 7.2 Eosinophils (%) (Auto) 0.9 Basophils (%) (Auto) 0.2 Neutrophils # (Auto) 4.0 Lymphocytes # (Auto) 1.7 Monocytes # (Auto) 0.4 Eosinophils # (Auto) 0.1 Basophils # (Auto) 0.0 CBC Comment DIFF FINAL Differential Comment (Yen oDng MD R2) MDM Medical Record Reviewed: Yes Narrative Course / MDM 1. IUP: at 31.1 weeks. No labs done, will order today. OS US on 10/26 showing BPP 8/8, JENNA 12.7, no previa, cephalic. AGA. 2. Vaginal bleeding: No evidence of vaginal bleeding on examination, evidence of cervicitis noted. Strict bleeding precautions are given. Wet prep negative. GC and Chlamydia ordered and pending. Will order azithromycin 1 g PO x 1, sent to pharmacy. Appointment with [facility] tomorrow, will follow up cultures and treat as appropriate. If positive for gonorrhea will require Rocephin. 3. Hematuria: no blood, + ketones (trace), moderate leukocyte esterase. 30 protein. High specific gravity. Rare bacteria noted. Culture not indicated per lab criteria. 4. Morbid obesity. 5. A1 gestational diabetes: Continue ADA diet 6. Gestational hypertension: BP 125/92 today. Pre-eclampsia previously ruled out. Protein noted on UA, probably dehydration. 7. Anemia: Encouraged by mouth iron 8. UDS + marijuana, counseled 9. Headache: declined Tylenol. Counseled on safe pain meds in 10. well-being: Reassuring testing with category 1 heart rate tracing and reactive NST. kick counts daily 11. Follow up with primary M.D. in 2-3 days or sooner if needed Plan Discharge home with follow up tomorrow. (Yen Dong MD R2) Attending Attestation Patient seen and evaluated with resident under direct supervision, agree with assessment and plan. (Mike Matute MD) Diagnosis Diagnosis: Primary Impression: Acute cervicitis Disposition: DISCHARGE HOME Condition: Stable Scripts Azithromycin (Azithromycin) 500 Mg Tab 1000 MG PO DAILY for Infection, #2 TAB 0 Refills Prov: Yen Dong MD R2 11/09/17 Patient Instructions: Having Your Baby: The Labor Process (GEN) Yen Dong MD R2 Nov 09, 2017 17:47 Mike Matute MD Nov 09, 2017 19:13
[2017-11-10 11:59] LABS: HEPATITIS A AB IGM NEGATIVE (NEGATIVE); HEPATITIS B CORE AB IGM NEGATIVE (NEGATIVE); HEPATITIS B SURFACE ANTIGEN NEGATIVE (NEGATIVE); HEPATITIS C AB IgG NEGATIVE (NEGATIVE)
== END 2017-11-09 17:54 | disposition home or self-care (01) ==
LOC: HOBED 15:23
DX: O23.513 Infections of cervix in pregnancy, third trimester (principal); O24.410 Gestational diabetes mellitus in pregnancy, diet controlled; O13.3 Gestational [pregnancy-induced] hypertension without significant proteinuria, third trimester; O99.013 Anemia complicating pregnancy, third trimester; D64.9 Anemia, unspecified; O99.213 Obesity complicating pregnancy, third trimester; E66.01 Morbid (severe) obesity due to excess calories; Z3A.31 31 weeks gestation of pregnancy
CPT/HCPCS: 36415; 59025; 80074; 80307; 81001; 85025; 86592; 86762; 86850; 86900; 86901; 87210; 87491; 87591

== ENCOUNTER 2017-11-30 18:31 | Observation (INO) | payer OTHER ==
[~2017-11-30] VITALS: Ht 157.5 cm; Wt 79.0 kg
[~2017-11-30 18:31] MED LIST changes: +AZIT500T2 PO
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
--- NOTE | 2017-11-30 19:50 | PD ---
History of Present Illness History of Present Illness NST report Indications: IUP at 34 weeks, vaginal bleeding, morbid obesity, borderline diabetes heart rate baseline in the 130s with moderate long-term variability, good accelerations, no decelerations noted. Final diagnoses cysts: IUP at 34 weeks, vaginal bleeding, morbid obesity, borderline diabetes, reassuring testing with reactive NST and category 1 heart rate tracing Follow-up: Continuous monitoring Val Rubin MD Nov 30, 2017 19:50
[2017-11-30] MEDS: LACTATED RINGER'S 1000 ML INJ 1,000 ML IV SCH (20:00)
[2017-11-30] MEDS ORDERED: ONDANSETRON HCL 4 MG/2 ML VIAL IV PUSH PRN (20:00)
[2017-11-30] MEDS ORDERED: SODIUM CHLORIDE 0.9% FLUSH 10 ML FLUSH IV FLUSH PRN (20:00)
[2017-11-30] MEDS ORDERED: ALUMINUM/MAGNESIUM/SIMETH 30 ML CUP PO PRN (20:00)
[2017-11-30] MEDS ORDERED: ONDANSETRON ODT 4 MG TAB PO PRN (20:00)
[2017-11-30] MEDS ORDERED: ZOLPIDEM TARTRATE 5 MG TAB PO PRN (20:00)
[2017-11-30 20:15] VITALS: RESP 18
[2017-11-30 21:00] LABS: HEMATOCRIT 27.9 % (35.0-46.0); HEMOGLOBIN 8.7 GM/DL (11.6-15.3); MEAN CELL VOLUME 75.8 FL (80.0-100.0); MEAN CORPUSCULAR HEMOGLOBIN 23.7 PG (27.0-34.0); MEAN CORPUSCULAR HGB CONC 31.3 % (32.0-36.0); MEAN PLATELET VOLUME 9.2 FL (7.0-11.0); PLATELET COUNT 224 TH/MM3 (150-450); RED BLOOD COUNT 3.67 MIL/MM3 (4.00-5.30); RED CELL DISTRIBUTION WIDTH 15.9 % (11.6-17.2); WHITE BLOOD COUNT 7.8 TH/MM3 (4.0-11.0)
[2017-11-30] MEDS: FERROUS SULFATE 325 MG (65 MG ELEMENTAL IRON) TAB PO SCH (21:00)
[2017-11-30] MEDS: SODIUM CHLORIDE 0.9% FLUSH 10 ML FLUSH IV FLUSH SCH (21:00)
[2017-11-30 21:04] VITALS: RESP 18; TEMP 98
[2017-11-30 21:04] LABS: AMORPHOUS SEDIMENT, URINE RARE; BILIRUBIN, URINE NEG (NEG); BLOOD, URINE LARGE (NEG); GLUCOSE,URINE NEG (NEG); KETONE, URINE TRACE mg/dL (NEG); MUCUS URINE MOD /lpf (OCC); NITRITE,URINE NEG (NEG); SQUAMOUS EPITHELIAL CELL URINE 8 /hpf (0-5); URINE LEUKOCYTE ESTERASE SMALL (NEG)
[2017-11-30 21:05] LABS: URINE COLOR RED (YELLW/STRAW)
[2017-11-30] MEDS: ACETAMINOPHEN 325 MG TAB PO PRN (21:05)
[2017-11-30 21:06] VITALS: BP 102/59; PULSE 91
[2017-11-30 21:11] LABS: ALBUMIN 2.4 GM/DL (3.4-5.0); AST (GOT) 15 U/L (15-37); BICARBONATE 24.3 MEQ/L (21.0-32.0); BLOOD UREA NITROGEN 9 MG/DL (7-18); CALCIUM 9.1 MG/DL (8.5-10.1); CHLORIDE 105 MEQ/L (98-107); CREATININE 0.39 MG/DL (0.50-1.00); GLOMERULAR FILTRATION RATE 244 ML/MIN (>89); GLUCOSE,RANDOM 82 MG/DL (74-106); SODIUM (NA) 138 MEQ/L (136-145)
[2017-11-30 21:12] LABS: ALT (GPT) 12 U/L (10-53)
[2017-11-30 21:14] LABS: ALKALINE PHOSPHATASE 131 U/L (45-117); TOTAL BILIRUBIN ADULT 0.1 MG/DL (0.2-1.0)
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
[2017-11-30 22:58] VITALS: BP 114/60; PULSE 88; RESP 18
[2017-12-01] VITALS (9 sets, daily range): BP systolic 100–136; BP diastolic 46–72; PULSE 88–120; RESP 17–20; TEMP 98–98.8; O2SAT 98
[2017-12-01] MEDS: LACTATED RINGER'S 1000 ML INJ 1,000 ML IV SCH ×2 (00:45→15:48)
[2017-12-01] MEDS: SODIUM CHLORIDE 0.9% FLUSH 10 ML FLUSH IV FLUSH SCH (09:00)
[2017-12-01] MEDS ORDERED: MULTIVIT/MIN/PREN/FOL AC/IRON PRENATAL TAB PO SCH (09:00)
[2017-12-01] MEDS ORDERED: DOCUSATE SODIUM 100 MG CAP PO SCH (09:00)
[2017-12-01] MEDS: FERROUS SULFATE 325 MG (65 MG ELEMENTAL IRON) TAB PO SCH (09:10)
--- NOTE | 2017-12-01 09:28 | HHI.PR ---
Subjective Remarks NST report Indications: IUP at 34 weeks, vaginal bleeding, morbid obesity, borderline diabetes heart rate baseline in the 130s with moderate long-term variability, good accelerations, no decelerations noted. Final diagnoses cysts: IUP at 34 weeks, vaginal bleeding, morbid obesity, borderline diabetes, reassuring testing with reactive NST and category 1 heart rate tracing Follow-up: Continuous monitoring Objective Vital Signs Date Time Temp Pulse Resp B/P (MAP) Pulse Ox O2 Delivery O2 Flow Rate FiO2 12/01/17 07:43 98.8 20 12/01/17 07:41 99 115/51 (72) 12/01/17 01:28 98.8 18 12/01/17 01:25 108 127/68 (87) 12/01/17 01:00 18 12/01/17 00:57 98.0 88 18 136/72 (93) 98 11/30/17 22:58 88 18 11/30/17 22:58 114/60 (78) 11/30/17 22:00 18 11/30/17 21:06 91 102/59 (73) 11/30/17 21:04 18 11/30/17 21:04 98.0 11/30/17 20:15 18 Result Diagram: 11/30/17 1901 11/30/17 190 Val Rubin MD Dec 01, 2017 09:28
--- NOTE | 2017-12-01 11:18 | PD.OB.ANTE ---
Subjective Diagnosis: (1) 34 weeks gestation of Diagnosis: Principal (2) Vaginal bleeding during , antepartum Diagnosis: Principal Interval History Ms. Ennis was afebrile with stable vital signs overnight. Patient reports that she had a cessation of vaginal bleeding overnight but then began to have bleeding again this morning. Patient also reports crampy abdominal pain. Patient does not report any chest pain, shortness of breath, or leg swelling. Patient does not report any movement concerns. Antepartum ROS: Reports: Vaginal bleeding Objective Vital Signs Vital Signs Date Time Temp Pulse Resp B/P (MAP) Pulse Ox O2 Delivery O2 Flow Rate FiO2 12/01/17 07:43 98.8 20 12/01/17 07:41 99 115/51 (72) 12/01/17 01:28 98.8 18 12/01/17 01:25 108 127/68 (87) 12/01/17 01:00 18 12/01/17 00:57 98.0 88 18 136/72 (93) 98 11/30/17 22:58 88 18 11/30/17 22:58 114/60 (78) 11/30/17 22:00 18 11/30/17 21:06 91 102/59 (73) 11/30/17 21:04 18 11/30/17 21:04 98.0 11/30/17 20:15 18 Lab & Micro Results Test 11/30/17 19:01 White Blood Count 7.8 TH/MM3 Red Blood Count 3.67 MIL/MM3 Hemoglobin 8.7 GM/DL Hematocrit 27.9 % Mean Corpuscular Volume 75.8 FL Mean Corpuscular Hemoglobin 23.7 PG Mean Corpuscular Hemoglobin Concent 31.3 % Red Cell Distribution Width 15.9 % Platelet Count 224 TH/MM3 Mean Platelet Volume 9.2 FL Urine Color RED Urine Turbidity HAZY Urine pH 6.0 Urine Specific [place] 1.032 Urine Protein 100 mg/dL Urine Glucose (UA) NEG mg/dL Urine Ketones TRACE mg/dL Urine Occult Blood LARGE Urine Nitrite NEG Urine Bilirubin NEG Urine Urobilinogen 2.0 MG/DL Urine Leukocyte Esterase SMALL Urine RBC /hpf Urine WBC 7 /hpf Urine Squamous Epithelial Cells 8 /hpf Urine Amorphous Sediment RARE Urine Mucus MOD /lpf Microscopic Urinalysis Comment CULT NOT INDICATED Blood Urea Nitrogen 9 MG/DL Creatinine 0.39 MG/DL Random Glucose 82 MG/DL Total Protein 7.0 GM/DL Albumin 2.4 GM/DL Calcium Level 9.1 MG/DL Alkaline Phosphatase 131 U/L Aspartate Amino Transf (AST/SGOT) 15 U/L Alanine Aminotransferase (ALT/SGPT) 12 U/L Total Bilirubin 0.1 MG/DL Sodium Level 138 MEQ/L Potassium Level 3.6 MEQ/L Chloride Level 105 MEQ/L Carbon Dioxide Level 24.3 MEQ/L Anion Gap 9 MEQ/L Estimat Glomerular Filtration Rate 244 ML/MIN Urine Opiates Screen NEG Urine Barbiturates Screen NEG Urine Amphetamines Screen NEG Urine Benzodiazepines Screen NEG Urine Cocaine Screen NEG Urine Cannabinoids Screen POS Physical Exam GENERAL: Well-nourished, well-developed patient. SKIN: Warm and dry. EYES: No scleral icterus. No injection or drainage. ENT: No nasal drainage noted. Mucous membranes pink. Airway patent. NECK: Supple, trachea midline. No JVD. CARDIOVASCULAR: Regular rate and rhythm without murmurs. Normal perfusion RESPIRATORY: CTAB; normal rate ABDOMEN/GI: Abdomen soft, non-tender, bowel sounds present Gravid, obese EXTREMITIES: No cyanosis or edema. BACK: Nontender without obvious deformity. NEUROLOGICAL: Awake and alert. Motor and sensory function grossly within normal limits. Musculoskeletal: Grossly normal range of motion, gait, muscle strengt Psychiatric: Grossly normal memory/affect FHT's: Cat 1, baseline in 150's, moderate variability, no decels Uterine Contractions: None; occasional irritability GENITOURINARY: Inspected 11/[address] Rubin- visible blood in perineum; no active bleeding from vagina. No visible signs of bleeding. 12/01- patient demonstrated blood in toilet from recent vaginal bleeding Assessment and Plan Problem List: (1) 34 weeks gestation of ICD Codes: Z3A.34 - 34 weeks gestation of Status: Acute (2) Vaginal bleeding during , antepartum ICD Codes: O46.90 - Antepartum hemorrhage, unspecified, unspecified trimester Status: Acute Plan: 1. IUP at 34.2 weeks 2. Vaginal bleeding: Impression: Vaginal bleeding noted 11/30 on exam. 12/01- patient has continued vaginal bleeding. Cat 1 tracing on EFM; no contractions BPP performed 11/30- reassuring -Due to persistent bleeding this morning; will have continued observation of patient with goal of 24 hrs without vaginal bleeding 3. contractions Impression: Review of recent CTG/EFM suggests no concern for contractions recently after IVF; no concern for labor at this time 4. well-being: Reassuring testing with reactive NST and category 1 heart rate tracing. -Will continue intermittent monitoring 5. Borderline diabetes: Patient reports she is not yet had her 1 hour glucose test but she is been told she has borderline diabetes outside of and follows a diet for this 12/01: 1 hr GTT attempted but patient did not tolerate 6. Morbid obesity Seen with Jean Palu Mackey MD, R3 Dec 01, 2017 11:18
[2017-12-01 11:41] LABS: HEMATOCRIT 25.4 % (35.0-46.0); HEMOGLOBIN 8.5 GM/DL (11.6-15.3); MEAN CELL VOLUME 74.5 FL (80.0-100.0); MEAN CORPUSCULAR HGB CONC 33.6 % (32.0-36.0); MEAN PLATELET VOLUME 8.8 FL (7.0-11.0); PLATELET COUNT 195 TH/MM3 (150-450); RED BLOOD COUNT 3.41 MIL/MM3 (4.00-5.30); RED CELL DISTRIBUTION WIDTH 16.1 % (11.6-17.2); WHITE BLOOD COUNT 6.1 TH/MM3 (4.0-11.0)
[2017-12-01 15:02] LABS: HEMOGLOBIN A1C 5.6 % (4.3-6.0)
[2017-12-01] MEDS: ACETAMINOPHEN 325 MG TAB PO PRN (15:48)
--- NOTE | 2017-12-01 16:30 | HHI.DCPOC ---
Discharge Care Plan Diagnosis: (1) 34 weeks gestation of (2) Vaginal bleeding during , antepartum Report Symptoms to Your Doctor -Temperature above 100.5 degrees -Redness, of incision or excessive or foul smelling drainage -Unusual pain or calf pain -Increased vaginal bleeding -Painful or difficulty urinating -Feelings of extreme sadness or anxiety after 2 weeks Goals to Promote Your Health * To prevent worsening of your condition and complications * To maintain your health at the optimal level Directions to Meet Your Goals Take your medications as prescribed Follow your dietary instruction Follow activity as directed Ensure plenty of rest for recovery Drink fluids for hydration Keep your appointments as scheduled Take your immunizations and boosters as scheduled If your symptoms worsen call your PCP, if no PCP go to Urgent Care Center or Emergency Room Smoking is Dangerous to Your Health. Avoid second hand smoke Call the 24-hour crisis hotline for domestic abuse at Jean Paul Baig MD, R3 Dec 01, 2017 16:30
--- NOTE | 2017-12-01 16:40 | HHI.PR ---
Addendum to Inpatient Note Addendum Reason: Additional Documentation Additional Information Ms. Ennis was re-evaluated this afternoon: Patient re-inspected with nursing staff; she did not have any additional vaginal bleeding at ~1630 when going to the bathroom and pad inspected; earlier in the day, patient had streak dark red blood suggestive of subacute bleeding but not active bleed. Patient does not report abdominal pain at this time. Reassuring tracing on intermittent monitoring. Patient agreeable with discharge home and follow-up with [facility]. Patient will return to OB ED with any additional vaginal bleeding or other concerns. Jean Paul Baig MD, R3 Dec 01, 2017 16:40
== END 2017-12-01 18:27 | disposition home or self-care (01) ==
LOC: HOBED 18:31 → H2EB 19:11
PROVIDERS: ADMIT Obstetrics & Gynecology; ATTEND Obstetrics & Gynecology
DX: O46.93 Antepartum hemorrhage, unspecified, third trimester (principal); O99.89 Other specified diseases and conditions complicating pregnancy, childbirth and the puerperium; R73.03 Prediabetes; O99.343 Other mental disorders complicating pregnancy, third trimester; F41.9 Anxiety disorder, unspecified; O99.213 Obesity complicating pregnancy, third trimester; E66.01 Morbid (severe) obesity due to excess calories; Z3A.34 34 weeks gestation of pregnancy; V89.2XXA Person injured in unspecified motor-vehicle accident, traffic, initial encounter; Y92.410 Unspecified street and highway as the place of occurrence of the external cause
CPT/HCPCS: 99285; G0378; 59025; 76816; 76819; 80053; 80307; 81001; 82951; 83036; 85027; 86850; 86900; 86901; G0481; J7120

== ENCOUNTER 2017-12-02 10:36 | Inpatient (IN) | payer OTHER ==
[2017-12-02] VITALS (51 sets, daily range): BP systolic 115–125; BP diastolic 63–70; PULSE 82–119; RESP 18; TEMP 98.3
[~2017-12-02] VITALS: Ht 175.3 cm; Wt 128.8 kg
[~2017-12-02 10:36] MED LIST changes: -AZIT500T2 PO; -TERC.4%V VAGINAL
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
[2017-12-02] MEDS ORDERED: ONDANSETRON ODT 4 MG TAB PO PRN (14:00)
[2017-12-02] MEDS ORDERED: ACETAMINOPHEN 325 MG TAB PO PRN (14:00)
[2017-12-02 14:28] LABS: HEMATOCRIT 27.7 % (35.0-46.0); HEMOGLOBIN 8.9 GM/DL (11.6-15.3); MEAN CELL VOLUME 75.3 FL (80.0-100.0); MEAN CORPUSCULAR HEMOGLOBIN 24.3 PG (27.0-34.0); MEAN CORPUSCULAR HGB CONC 32.3 % (32.0-36.0); MEAN PLATELET VOLUME 8.8 FL (7.0-11.0); PLATELET COUNT 225 TH/MM3 (150-450); RED BLOOD COUNT 3.68 MIL/MM3 (4.00-5.30); RED CELL DISTRIBUTION WIDTH 16.4 % (11.6-17.2); WHITE BLOOD COUNT 7.1 TH/MM3 (4.0-11.0)
[2017-12-02 15:29] LABS: BILIRUBIN, URINE NEG (NEG); BLOOD, URINE NEG (NEG); GLUCOSE,URINE NEG (NEG); KETONE, URINE 10 mg/dL (NEG); MUCUS URINE MOD /lpf (OCC); NITRITE,URINE NEG (NEG); SQUAMOUS EPITHELIAL CELL URINE 1 /hpf (0-5); URINE COLOR YELLOW (YELLW/STRAW); URINE LEUKOCYTE ESTERASE SMALL (NEG)
[2017-12-02] MEDS: BETAMETHASONE SOD PHOS/ACETATE SUSP 30 MG/5 ML VIAL IM SCH (20:16)
[2017-12-03] VITALS (74 sets, daily range): BP systolic 115–132; BP diastolic 51–76; PULSE 58–121; RESP 18–20; TEMP 97.7–98.8
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
[2017-12-03] MEDS ORDERED: ALUMINUM/MAGNESIUM/SIMETH 30 ML CUP PO PRN (03:15)
[2017-12-03] MEDS: MULTIVIT/MIN/PREN/FOL AC/IRON PRENATAL TAB PO SCH (08:36)
[2017-12-03] MEDS: SODIUM CHLORIDE 0.9% FLUSH 10 ML FLUSH IV FLUSH SCH ×2 (08:36→20:11)
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
[2017-12-03 10:03] LABS: HEMATOCRIT 28.2 % (35.0-46.0); MEAN CELL VOLUME 75.4 FL (80.0-100.0); MEAN CORPUSCULAR HGB CONC 31.9 % (32.0-36.0); MEAN PLATELET VOLUME 8.8 FL (7.0-11.0); PLATELET COUNT 220 TH/MM3 (150-450); RED BLOOD COUNT 3.74 MIL/MM3 (4.00-5.30); RED CELL DISTRIBUTION WIDTH 16.4 % (11.6-17.2); WHITE BLOOD COUNT 7.4 TH/MM3 (4.0-11.0)
[2017-12-03] MEDS: BETAMETHASONE SOD PHOS/ACETATE SUSP 30 MG/5 ML VIAL IM SCH (20:11)
[2017-12-03] MEDS: LACTATED RINGER'S 1000 ML INJ 1,000 ML IV SCH (22:03)
[2017-12-03] MEDS ORDERED: CALCIUM GLUCONATE 10% 1 GM/10 ML VIAL IV PUSH PRN (22:15)
[2017-12-03] MEDS ORDERED: SODIUM CHLORIDE 0.9% FLUSH 10 ML FLUSH IV FLUSH PRN (22:15)
[2017-12-04] VITALS (88 sets, daily range): BP systolic 98–140; BP diastolic 56–82; PULSE 83–123; RESP 16–20; TEMP 97.8–98.8; O2SAT 99–100
[2017-12-04] MEDS ORDERED: MAGNESIUM SULFATE 4 GM PREMIX 100 ML IV ONE (04:00)
[2017-12-04] MEDS ORDERED: MORPHINE SULFATE 2 MG/ML INJ IV PUSH ONE (07:15)
[2017-12-04] MEDS ORDERED: ONDANSETRON HCL 4 MG/2 ML VIAL IV PUSH PRN ×2 (07:30→10:30)
[2017-12-04] MEDS ORDERED: CITRIC ACID-SODIUM CITRATE LIQ 30 ML UDC PO SCH (07:30)
[2017-12-04] MEDS ORDERED: LIDOCAINE HCL 1% 50 ML VIAL I-DERMAL PRN (07:30)
[2017-12-04] MEDS ORDERED: ceFAZolin 2 GM PREMIX 50 ML IV SCH (07:30)
[2017-12-04] MEDS ORDERED: MIDAZOLAM HCL 2 MG/2 ML VIAL ONE (08:30)
[2017-12-04] MEDS ORDERED: MORPHINE SULFATE PF 5 MG/10 ML VIAL ONE (08:31)
[2017-12-04] MEDS ORDERED: CLINDAMYCIN 900 MG/NS PREMIX 50 ML IV ONE (09:00)
[2017-12-04] MEDS ORDERED: SODIUM CHLORIDE 0.9% FLUSH 10 ML FLUSH IV FLUSH SCH (09:00)
[2017-12-04] MEDS ORDERED: fentaNYL CITRATE 250 MCG/5 ML AMP ONE (09:32)
--- NOTE | 2017-12-04 10:18 | PD.OB.DELI ---
Procedure Note Section Procedure Pre Op Diagnosis: (1) 34 weeks gestation of (2) Vaginal bleeding during , antepartum Post Op Diagnosis: (1) 34 weeks gestation of (2) Vaginal bleeding during , antepartum Performed by Salvador Bryant Procedure: Primary Low Transverse Sec Informed consent obtained: For anesthesia, For procedure Confirmed correct: Patient, Procedure Anesthesia: Other (General endontracheal, after failed attempt at spinal anesthesia) Medication prior to procedure: As documented in eMAR, Antibiotics, IV, Magnesium Sulfate Monitoring during procedure: Blood pressure monitoring, local delivery driver Urinary catheter: Inserted using sterile technique Sterile preparation: With 2% chlorexidine (Hibiclens) Position: Supine with wedge to left side Operative Features Skin Incision: Pfannenstiel Uterine Incision: Low transverse w/knife / blunt ext Membranes Ruptured: Artificially Presentation: Vertex Delivery date: Dec 04, 2017 Delivery time: 09:26 Delivery of : Umbilical cord Infant: Male One Minute : 7 Five Minute : 8 Weight: 2630 Status of infant: Viable Placenta delivered: Intact Medications: Oxytocin Estimated blood loss: 500cc Procedure tolerated: Well Maternal Condition: Stable Condition: Stable Procedure in detail Pt brought into OR. Properly identified and informed consent reviewed. Positioned for spinal anesthesia and aborted after multiple attempts at spinal. Decision made to proceed to general anesthesia. Patient already had Kohler catheter inserted pre-op. Repositioned in dorsal supine position with slight leftward tip. Cleansed and draped in standard sterile fashion. General anesthesia induced without any complication. Pfannensteil incision made with scalpel and taken through subcutaneous tissue with Bovie. Fascia incised and extended bilaterally with curved Mayos. Rectus fascia elevated and dissected off from underlying rectus muscles. Muscles in the midline and peritoneum entered bluntly. Scalpel used to make lateral transverse incision over CHAVA. Amniotomy done with clear fluid. Infant delivered from direct OA position. Loose nuchal cord reduced, cord clamped after 45 minute delay and then, divided and paased to Peds. Placenta membranes delivered spont,complete. 3VC. Uterus closed in 2 layers first 1 Vicryl locking for hemostasis and next of 2.0 Vicryl to close the peritoneum. Interceed adhesion barrier closed. Gutters cleansed and uterus returned to its intraperitoneal location. fascia closed with 1 PDS. Subcutaneous layer closed with 2.0 Vicryl. Skin with 3.0 Monocryl in cubcuticular fashion. Salvador Bryant MD Dec 04, 2017 10:18
[2017-12-04] MEDS ORDERED: NALOXONE HCL 0.4 MG/ML AMP IV PUSH PRN ×2 (10:30)
[2017-12-04] MEDS ORDERED: OXYTOCIN 30 UNITS-500ML PREMIX 500 ML IV ONE (10:30)
[2017-12-04] MEDS ORDERED: ACETAMINOPHEN 325 MG TAB PO PRN (10:30)
[2017-12-04] MEDS ORDERED: SODIUM CHLORIDE 0.9% FLUSH 10 ML FLUSH IV FLUSH PRN (10:30)
[2017-12-04] MEDS ORDERED: diphenhydrAMINE HCL 50 MG/ML VIAL IV PUSH PRN (10:30)
[2017-12-04] MEDS ORDERED: KETOROLAC TROMETHAMINE 60 MG/2 ML (IM) VIAL IM PRN (10:30)
[2017-12-04] MEDS ORDERED: SIMETHICONE 80 MG CHEWABLE TAB PO PRN (10:30)
[2017-12-04] MEDS ORDERED: oxyCODONE/ACETAMINOPHEN 5 MG/325 MG TAB PO PRN (10:30)
[2017-12-04] MEDS ORDERED: MORPHINE SULFATE 30 MG/30 ML PCA IV SCH (10:30)
[2017-12-04] MEDS ORDERED: HYDROmorphone HCL PF 2 MG/ML VIAL ONE (11:01)
[2017-12-04] MEDS ORDERED: PCA - TOTAL MG DILAUDID DELIVERED PER SHIFT OTHER SCH (14:00)
[2017-12-04] MEDS ORDERED: PCA - TOTAL MG MORPHINE DELIVERED PER SHIFT SCH (14:00)
[2017-12-04] MEDS: CLINDAMYCIN INJ 600 MG in SODIUM CHLORIDE 0.9% INJ 100 ML IV SCH ×2 (15:00→21:36)
[2017-12-04] MEDS: LACTATED RINGER'S 1000 ML INJ 1,000 ML IV SCH (15:18)
[2017-12-04] MEDS ORDERED: OXYTOCIN 30 UNITS-500ML PREMIX 500 ML IV PRN (20:30)
[2017-12-04] MEDS ORDERED: ZOLPIDEM TARTRATE 5 MG TAB PO PRN (21:00)
[2017-12-04] MEDS: SODIUM CHLORIDE 0.9% FLUSH 10 ML FLUSH IV FLUSH SCH (21:00)
[2017-12-04] MEDS: MAGNESIUM SULFATE 40 GM PREMIX 1,000 ML IV SCH (22:03)
[2017-12-05] VITALS (7 sets, daily range): BP systolic 121–130; BP diastolic 65–74; PULSE 87–99; RESP 17–20; TEMP 97.9–99.3; O2SAT 98
[2017-12-05] MEDS: LACTATED RINGER'S 1000 ML INJ 1,000 ML IV SCH (01:18)
[2017-12-05] MEDS: IBUPROFEN 600 MG TAB PO PRN ×3 (01:44→16:43)
[2017-12-05] MEDS: oxyCODONE/ACETAMINOPHEN 5 MG/325 MG TAB PO PRN ×2 (01:44→08:58)
[2017-12-05] MEDS: MAGNESIUM SULFATE 40 GM PREMIX 1,000 ML IV SCH (04:00)
--- NOTE | 2017-12-05 08:41 | HHI.OB ---
Subjective Remarks 26 year old female s/p C/S at 34 wks gestation, POD. AFVSS. Patient reports she is feeling well. Bleeding is decreasing and pain is well- controlled. She is breast feeding and bonding well with baby. Ambulating without difficulties. She is tolerating a diet without nausea or vomiting. She has not had a bowel movement. She has passed gas. Denies chest pain, dysuria, shortness of breath, or calf pain. Objective Vitals/I&O Vital Signs Date Time Temp Pulse Resp B/P (MAP) Pulse Ox O2 Delivery O2 Flow Rate FiO2 12/05/17 07:43 99.3 87 20 130/65 (86) 12/05/17 06:20 18 12/05/17 05:57 18 12/05/17 04:25 98.0 90 18 121/74 (90) 12/05/17 01:44 18 12/04/17 23:55 98.8 99 20 130/79 (96) 12/04/17 20:30 18 12/04/17 19:00 98.7 111 18 116/60 (78) 12/04/17 14:00 16 12/04/17 12:05 18 12/04/17 11:55 102 16 123/71 (88) 12/04/17 11:55 98.0 12/04/17 11:06 140/70 (93) 12/04/17 11:06 95 20 99 12/04/17 10:55 95 20 135/69 (91) 100 12/04/17 10:40 100 20 99/58 (72) 99 12/04/17 10:25 98.2 109 20 98/56 (70) 99 Result Diagram: 12/03/17 0931 Objective Remarks GENERAL: Well-nourished, well-developed patient. CARDIOVASCULAR: Regular rate and rhythm without murmurs, gallops, or rubs. RESPIRATORY: Breath sounds equal bilaterally. No accessory muscle use. ABDOMEN/GI: Abdomen soft, non-tender, bowel sounds present. Incision: Covered in pressure dressing, dry Fundus: Firm, mildly tender at umbilicus GENITOURINARY: Light to moderate bleeding. EXTREMITIES: No cyanosis or edema, non-tender, without signs of DVT. Medications and IVs Current Medications Medications (Trade) Dose Ordered Sig/Reilly Route Start Time Stop Time Status Last Admin (Zofran Odt) 4 mg Q6H PRN PO 12/02/17 14:00 (Stuartnatal Plus 3 ) 1 tab DAILY PO 12/03/17 09:00 12/03/17 08:36 (Mag-Al Plus Susp Liq) 30 ml Q6H PRN PO 12/03/17 03:15 12/03/17 03:16 Lactated Ringer's 1,000 ml @ 75 mls/hr [id number] IV 12/03/17 22:03 Magnesium Sulfate 1,000 ml @ 25 mls/hr Q24H IV 12/04/17 22:03 12/05/17 04:00 (Calcium Gluconate Inj) 1 gm UNSCH PRN IV PUSH 12/03/17 22:15 (Xylocaine 1% Inj (50 ml)) 0.1 ml UNSCH X1 PRN I-DERMAL 12/04/17 07:30 12/07/17 07:29 (Bicitra Liq) 30 ml [employer] ENGINEER PO 12/04/17 07:30 12/08/17 07:29 Lactated Ringer's 1,000 ml @ 100 mls/hr Q10H IV 12/04/17 15:18 12/05/17 11:17 12/04/17 15:18 Oxytocin 500 ml @ 100 mls/hr UNSCH X1 PRN IV 12/04/17 20:30 12/05/17 20:29 (NS Flush) 2 ml BID IV FLUSH 12/04/17 21:00 (NS Flush) 2 ml UNSCH PRN IV FLUSH 12/04/17 10:30 (Mylicon Chew) 80 mg QID PRN PO 12/04/17 10:30 (Tylenol) 650 mg Q6H PRN PO 12/04/17 10:30 (Toradol Inj) 30 mg Q6H PRN IM 12/04/17 10:30 12/05/17 10:29 (Percocet 5-325 Mg) 1 tab Q4H PRN PO 12/04/17 10:30 (Percocet 5-325 Mg) 2 tab Q4H PRN PO 12/04/17 10:30 12/05/17 01:44 (Corrine-Colace) 2 tab Q12H PRN PO 12/04/17 10:30 (Ambien) 5 mg HS PRN PO 12/04/17 21:00 (M-M-R Ii Inj) 0.5 ml ONCE ONCE SQ 12/05/17 16:00 12/05/17 16:01 (Boostrix Inj) 0.5 ml ONCE ONCE IM 12/05/17 16:00 12/05/17 16:01 (Zofran Inj) 4 mg Q6H PRN IV PUSH 12/04/17 10:30 (Benadryl Inj) 25 mg Q6H PRN IV PUSH 12/04/17 10:30 (Motrin) 600 mg Q6H PRN PO 12/04/17 22:00 12/05/17 01:44 Assessment/Plan Problem List: (1) Irregular bleeding ICD Codes: N92.6 - Irregular bleeding Status: Acute (2) Vaginal bleeding during , antepartum ICD Codes: O46.90 - Antepartum hemorrhage, unspecified, unspecified trimester Status: Acute Assessment and Plan 26 yo female s/p C/S, POD 1 - AFVSS - Continue routine care - Motrin and Percocet PRN pain - Encourage OOB - Pelvic rest x 6 wks. Will need 1 week incision check. - Contraception: Depo Provera. First dose to be given prior to D/C - Anticipate D/C 12/06 or 12/07 Dereje Payan MD Dec 05, 2017 08:41
[2017-12-05 08:46] LABS: AUTOMATED NEUTROPHIL # 7.7 TH/MM3 (1.8-7.7); BASOPHIL % 0.2 % (0.0-2.0); HEMATOCRIT 24.6 % (35.0-46.0); HEMOGLOBIN 7.8 GM/DL (11.6-15.3); LYMPH % 17.7 % (9.0-44.0); LYMPHOCYTE # 1.8 TH/MM3 (1.0-4.8); MEAN CELL VOLUME 75.1 FL (80.0-100.0); MEAN CORPUSCULAR HEMOGLOBIN 23.8 PG (27.0-34.0); MEAN CORPUSCULAR HGB CONC 31.6 % (32.0-36.0); MEAN PLATELET VOLUME 9.2 FL (7.0-11.0); MONOCYTE # 0.8 TH/MM3 (0-0.9); NEUT % 74.1 % (16.0-70.0); PLATELET COUNT 234 TH/MM3 (150-450); RED BLOOD COUNT 3.28 MIL/MM3 (4.00-5.30); RED CELL DISTRIBUTION WIDTH 16.8 % (11.6-17.2); WHITE BLOOD COUNT 10.4 TH/MM3 (4.0-11.0)
[2017-12-05] MEDS: MULTIVIT/MIN/PREN/FOL AC/IRON PRENATAL TAB PO SCH ×2 (08:58→09:02)
[2017-12-05] MEDS: DOCUSATE SODIUM 50 MG/SENNA 8.6 MG TAB PO PRN (08:58)
[2017-12-05] MEDS ORDERED: medroxyPROGESTERone ACETATE SUSP 150 MG/ML SYRINGE IM ONE (09:00)
[2017-12-05] MEDS: FERROUS SULFATE 325 MG (65 MG ELEMENTAL IRON) TAB PO SCH ×2 (10:03→20:30)
[2017-12-05] MEDS ORDERED: DIPHTH/TETANUS/ACEL PERTUSSIS (BOOSTER) 0.5 ML VIAL/PFS IM ONE (16:00)
[2017-12-05] MEDS ORDERED: MEASLES, MUMPS, RUBELLA VACCINE 0.5 ML VIAL SQ ONE (16:00)
[2017-12-05] MEDS: SODIUM CHLORIDE 0.9% FLUSH 10 ML FLUSH IV FLUSH SCH (21:00)
[2017-12-06] MEDS: DOCUSATE SODIUM 50 MG/SENNA 8.6 MG TAB PO PRN ×2 (01:41→14:03)
[2017-12-06] MEDS: oxyCODONE/ACETAMINOPHEN 5 MG/325 MG TAB PO PRN ×3 (01:42→14:06)
[2017-12-06] MEDS: IBUPROFEN 600 MG TAB PO PRN ×2 (01:42→09:02)
[2017-12-06] MEDS: LACTATED RINGER'S 1000 ML INJ 1,000 ML IV SCH (03:23)
[2017-12-06 05:55] LABS: HEMATOCRIT 24.2 % (35.0-46.0); HEMOGLOBIN 7.8 GM/DL (11.6-15.3)
[2017-12-06] MEDS ORDERED: IBUP-232 PO (08:36)
[2017-12-06] MEDS ORDERED: OXYC1TAB63 PO (08:36)
[2017-12-06] MEDS ORDERED: PERI PO (08:36)
--- NOTE | 2017-12-06 08:37 | HHI.DCPOC ---
Discharge Care Plan Diagnosis: (1) care following delivery Report Symptoms to Your Doctor -Temperature above 100.5 degrees -Redness, of incision or excessive or foul smelling drainage -Unusual pain or calf pain -Increased vaginal bleeding -Painful or difficulty urinating -Feelings of extreme sadness or anxiety after 2 weeks Goals to Promote Your Health * To prevent worsening of your condition and complications * To maintain your health at the optimal level Directions to Meet Your Goals Take your medications as prescribed Follow your dietary instruction Follow activity as directed Ensure plenty of rest for recovery Drink fluids for hydration Keep your appointments as scheduled Take your immunizations and boosters as scheduled If your symptoms worsen call your PCP, if no PCP go to Urgent Care Center or Emergency Room Smoking is Dangerous to Your Health. Avoid second hand smoke Call the 24-hour crisis hotline for domestic abuse at Mele Reyna MD Dec 06, 2017 08:37
--- NOTE | 2017-12-06 08:47 | HHI.OB ---
Subjective Post Operative Day: 2 Remarks Postoperative day number 2. AFVSS overnight. Pain well-controlled. Incision not draining. Decreased lochia. Denies dysuria. No breast tenderness. She is feeding the baby via breast. Appetite good. No nausea or vomiting. + flatus. no bowel movement. Ambulating well. Denies calf pain, shortness of breath, or cough. Denies lightheadedness/dizziness. Otherwise, she is doing well this morning and has no other complaints. Objective Vitals/I&O Vital Signs Date Time Temp Pulse Resp B/P (MAP) Pulse Ox O2 Delivery O2 Flow Rate FiO2 12/05/17 19:32 97.9 99 17 126/69 (88) 98 12/05/17 09:30 98.1 Result Diagram: 12/06/17 0507 Objective Remarks GENERAL: Well-nourished, well-developed patient. CARDIOVASCULAR: Regular rate and rhythm without murmurs, gallops, or rubs. RESPIRATORY: Breath sounds equal bilaterally. No accessory muscle use. ABDOMEN/GI: Abdomen soft, non-tender, bowel sounds present. Incision: Covered in pressure dressing, dry Fundus: Firm, mildly tender at umbilicus GENITOURINARY: Light to moderate bleeding. EXTREMITIES: No cyanosis or edema, non-tender, without signs of DVT. Medications and IVs Current Medications Medications (Trade) Dose Ordered Sig/Reilly Route Start Time Stop Time Status Last Admin (Zofran Odt) 4 mg Q6H PRN PO 12/02/17 14:00 (Stuartnatal Plus 3 ) 1 tab DAILY PO 12/03/17 09:00 12/05/17 09:02 (Mag-Al Plus Susp Liq) 30 ml Q6H PRN PO 12/03/17 03:15 12/03/17 03:16 Lactated Ringer's 1,000 ml @ 75 mls/hr [id number] IV 12/03/17 22:03 Magnesium Sulfate 1,000 ml @ 25 mls/hr Q24H IV 12/04/17 22:03 12/05/17 04:00 (Calcium Gluconate Inj) 1 gm UNSCH PRN IV PUSH 12/03/17 22:15 (Xylocaine 1% Inj (50 ml)) 0.1 ml UNSCH X1 PRN I-DERMAL 12/04/17 07:30 12/07/17 07:29 (Bicitra Liq) 30 ml WEAVING PROFESSOR PO 12/04/17 07:30 12/08/17 07:29 (NS Flush) 2 ml BID IV FLUSH 12/04/17 21:00 (NS Flush) 2 ml UNSCH PRN IV FLUSH 12/04/17 10:30 (Mylicon Chew) 80 mg QID PRN PO 12/04/17 10:30 (Tylenol) 650 mg Q6H PRN PO 12/04/17 10:30 (Percocet 5-325 Mg) 1 tab Q4H PRN PO 12/04/17 10:30 12/05/17 16:43 (Percocet 5-325 Mg) 2 tab Q4H PRN PO 12/04/17 10:30 12/06/17 01:42 (Corrine-Colace) 2 tab Q12H PRN PO 12/04/17 10:30 12/06/17 01:41 (Ambien) 5 mg HS PRN PO 12/04/17 21:00 (Zofran Inj) 4 mg Q6H PRN IV PUSH 12/04/17 10:30 (Benadryl Inj) 25 mg Q6H PRN IV PUSH 12/04/17 10:30 (Motrin) 600 mg Q6H PRN PO 12/04/17 22:00 12/06/17 01:42 (Ferrous Sulfate) 325 mg BID PO 12/05/17 10:00 12/05/17 20:30 Assessment/Plan Problem List: (1) Irregular bleeding ICD Codes: N92.6 - Irregular bleeding Status: Acute (2) Vaginal bleeding during , antepartum ICD Codes: O46.90 - Antepartum hemorrhage, unspecified, unspecified trimester Status: Acute Assessment and Plan 26 yo female s/p C/S, POD 2 - AFVSS - Continue routine care - Motrin and Percocet PRN pain - Encourage OOB - Pelvic rest x 6 wks. Will need 1 week incision check. - Contraception: Depo Provera. First dose given yesterday. - Anticipate D/C today wdw Dr. Metzger and Britney Maxwell MD R1 Dec 06, 2017 08:47
[2017-12-06] MEDS: MULTIVIT/MIN/PREN/FOL AC/IRON PRENATAL TAB PO SCH (09:01)
[2017-12-06] MEDS: FERROUS SULFATE 325 MG (65 MG ELEMENTAL IRON) TAB PO SCH (09:01)
== END 2017-12-06 14:38 | disposition home or self-care (01) | DRG 765 ==
LOC: HOBED 10:36 → UNDOADMOB 14:28 → H2EA 14:28 → OBSVTOIN 12-03 12:03 → H2EA 12-04 11:33 → H1EA 12-04 11:33
PROVIDERS: ADMIT Obstetrics & Gynecology Maternal & Fetal Medicine; ATTEND Obstetrics & Gynecology Maternal & Fetal Medicine
PROC: 10D00Z1 Extraction of Products of Conception, Low, Open Approach (ICD-10-PCS; principal; 2017-12-04)
PROC: 3E0P05Z Introduction of Adhesion Barrier into Female Reproductive, Open Approach (ICD-10-PCS; 2017-12-04)
DX: O67.8 Other intrapartum hemorrhage (principal); Z68.41 Body mass index [BMI] 40.0-44.9, adult; E66.01 Morbid (severe) obesity due to excess calories; O99.214 Obesity complicating childbirth; R73.03 Prediabetes; O69.81X0 Labor and delivery complicated by cord around neck, without compression, not applicable or unspecified; Z37.0 Single live birth; Z3A.34 34 weeks gestation of pregnancy; V89.2XXA Person injured in unspecified motor-vehicle accident, traffic, initial encounter; Y92.410 Unspecified street and highway as the place of occurrence of the external cause
CPT/HCPCS: 59025; 76815; 76816; 76819; 80053; 80307; 81001; 82951; 83036; 85014; 85018; 85025; 85027; 86703; 86850; 86900; 86901; 87210; 88307; 90707; 90715; 96372; C1765; G0378; G0481; J0702; J1050; J1170; J2250; J2270; J2274; J2590; J3010; J3475; J7120

== ENCOUNTER 2018-04-28 15:27 | Emergency (ER) | payer OTHER ==
[~2018-04-28] VITALS: Ht 175.3 cm; Wt 135.0 kg
[~2018-04-28 15:27] MED LIST changes: +IBUP-232 PO; +OXYC1TAB63 PO; +PERI PO; -PREN29TA PO
[2018-04-28 15:32] VITALS: BP 124/68; PULSE 81; RESP 20; TEMP 99.2; O2SAT 99
[2018-04-28] MEDS ORDERED: DEPRESSION PILL (15:36)
[2018-04-28] MEDS ORDERED: SODIUM CHLOR 0.9% 1000 ML INJ 1,000 ML IV SCH (15:40)
[2018-04-28] MEDS ORDERED: SODIUM CHLORIDE 0.9% FLUSH 10 ML FLUSH IV FLUSH PRN (15:45)
[2018-04-28] MEDS ORDERED: LIDOCAINE VISCOUS 2% SOLN 15 ML UDC PO ONE (15:45)
[2018-04-28] MEDS ORDERED: FAMOTIDINE 20 MG/2 ML VIAL IV PUSH ONE (15:45)
[2018-04-28] MEDS ORDERED: ONDANSETRON ODT 4 MG TAB PO ONE (15:45)
[2018-04-28] MEDS ORDERED: ALUMINUM/MAGNESIUM/SIMETH 30 ML CUP PO ONE (15:45)
[2018-04-28] MEDS ORDERED: MORPHINE SULFATE 4 MG/ML INJ IV PUSH ONE (15:45)
--- NOTE | 2018-04-28 15:48 | PD ---
HPI Chief Complaint: Abdominal Pain Time Seen by Provider: 15:35 Travel History International Travel<30 days: No Contact w/Intl Traveler<30days: No Traveled to known affect area: No History of Present Illness HPI 27-year-old -[place] female presents emergency department via EMS status post sudden onset epigastric pain radiating to the back, which she describes as sharp and burning. Patient is 4 months of her son who is 4 months old. She is not breast-feeding. She states she made macaroni cheese with hamburger in it that she ate, with subsequent start of pain approximately 5 minutes after eating. Patient denies vomiting but has nausea. Patient has not had abdominal surgery other than her . Patient retains her gallbladder and appendix. Patient denies fever, chills, shortness of breath, or chest pain. Pain is localized to the epigastric region. Pain is currently 9 out of 10. It is not better or worse with movement or deep breath. It is constant. No previous history of reflux. No recent diarrhea. No urinary complaints. Patient is allergic to penicillin and apples. PFSH Past Medical History Depression: Yes Cardiovascular Problems: Yes (HTN) Diabetes: Yes Patient Takes Glucophage: No Diminished Hearing: No Hypertension: Yes Psychiatric: Yes (MOOD DISORDER) Immunizations Current: Yes Tetanus Vaccination: < 5 Years Influenza Vaccination: No ?: Not LMP: 04/2018 : 1 Para: 1 Past Surgical History Section: Yes Social History Alcohol Use: No Tobacco Use: No Substance Use: No Allergies-Medications (Allergen,Severity, Reaction): Coded Allergies: apple (Unverified Allergy, Intermediate, RASH, 04/28/18) All over body penicillin G (Unverified Allergy, Intermediate, SWELLING/RASH, 04/28/18) all over body Reported Meds & Prescriptions Reported Meds & Active Scripts Active Reported [Depression Pill] Review of Systems Except as stated in HPI: all other systems reviewed are Neg General / Constitutional: No: Fever, Chills Eyes: No: Visual changes HENT: No: Headaches Cardiovascular: No: Chest Pain or Discomfort Respiratory: No: Shortness of Breath Gastrointestinal: Positive: Nausea, Abdominal Pain (See history of present illness), Dysphagia, No: Vomiting, Diarrhea, Indigestion, Loss of Appetite Genitourinary: No: Dysuria Musculoskeletal: No: Pain Skin: No Rash Neurologic: No: Weakness Psychiatric: No: Depression Endocrine: No: Polydipsia Hematologic/Lymphatic: No: Easy Bruising Physical Exam Narrative GENERAL: Patient appears in moderate distress with tearing apparent. SKIN: Warm and dry. Normal color. Normal turgor. HEAD: Atraumatic. Normocephalic. EYES: Pupils equal and round. No scleral icterus. No injection or drainage. ENT: No nasal bleeding or discharge. Mucous membranes pink and moist. Pharynx is clear. Airways patent NECK: Trachea midline. Supple and nontender. CARDIOVASCULAR: Regular rate and rhythm. RESPIRATORY: No accessory muscle use. Clear to auscultation. Breath sounds equal bilaterally. GASTROINTESTINAL: Abdomen soft, moderate epigastric tenderness. No obvious Fitzpatrick's sign, nondistended. No CVA tenderness. Hepatic and splenic margins not palpable. MUSCULOSKELETAL: Extremities without clubbing, cyanosis, or edema. No obvious deformities. NEUROLOGICAL: Awake and alert. No obvious cranial nerve deficits. Motor grossly within normal limits. Five out of 5 muscle strength in the arms and legs. Normal speech. PSYCHIATRIC: Appropriate mood and affect; insight and judgment normal. Data Data Last Documented VS Vital Signs Date Time Temp Pulse Resp B/P (MAP) Pulse Ox O2 Delivery O2 Flow Rate FiO2 04/28/18 17:02 86 17 114/55 (74) 100 04/28/18 15:56 Room Air 04/28/18 15:32 99.2 Orders Orders Complete Blood Count With Diff (04/28/18 15:40) Comprehensive Metabolic Panel (04/28/18 15:40) Lipase (04/28/18 15:40) Urinalysis - C+S If Indicated (04/28/18 15:40) Ct Abd/Pel W Iv Contrast(Rout) (04/28/18 15:40) Us Abdomen Gallbladder (04/28/18 ) Iv Access Insert/Monitor (04/28/18 15:40) Ecg Monitoring (04/28/18 15:40) Oximetry (04/28/18 15:40) Morphine Inj (Morphine Inj) (04/28/18 15:45) Sodium Chlor 0.9% 1000 Ml Inj (Ns 1000 M (04/28/18 15:40) Sodium Chloride 0.9% Flush (Ns Flush) (04/28/18 15:45) Electrocardiogram (04/28/18 15:40) Famotidine Inj (Pepcid Inj) (04/28/18 15:45) Al-Mag Hy-Si 40-40-4 Mg/Ml Liq (Mag-Al P (04/28/18 15:45) Lidocaine 2% Viscous (Xylocaine 2% Visco (04/28/18 15:45) Ed Urine Pregnancytest Poc (04/28/18 15:40) Ondansetron Odt (Zofran Odt) (04/28/18 15:45) D-Dimer (04/28/18 16:09) Iohexol 350 Inj (Omnipaque 350 Inj) (04/28/18 17:02) Ckmb (Isoenzyme) Profile (04/28/18 15:50) Troponin I (04/28/18 15:50) CKMB (04/28/18 15:50) CKMB% (04/28/18 15:50) Labs Laboratory Tests Test 04/28/18 15:50 04/28/18 16:40 04/28/18 17:40 White Blood Count 6.5 TH/MM3 Red Blood Count 4.55 MIL/MM3 Hemoglobin 10.7 GM/DL Hematocrit 34.2 % Mean Corpuscular Volume 75.1 FL Mean Corpuscular Hemoglobin 23.5 PG Mean Corpuscular Hemoglobin Concent 31.2 % Red Cell Distribution Width 16.5 % Platelet Count 312 TH/MM3 Mean Platelet Volume 8.9 FL Neutrophils (%) (Auto) 55.5 % Lymphocytes (%) (Auto) 35.9 % Monocytes (%) (Auto) 7.2 % Eosinophils (%) (Auto) 1.1 % Basophils (%) (Auto) 0.3 % Neutrophils # (Auto) 3.6 TH/MM3 Lymphocytes # (Auto) 2.3 TH/MM3 Monocytes # (Auto) 0.5 TH/MM3 Eosinophils # (Auto) 0.1 TH/MM3 Basophils # (Auto) 0.0 TH/MM3 CBC Comment DIFF FINAL Differential Comment Blood Urea Nitrogen 9 MG/DL Creatinine 0.60 MG/DL Random Glucose 89 MG/DL Total Protein 7.3 GM/DL Albumin 3.2 GM/DL Calcium Level 8.6 MG/DL Alkaline Phosphatase 95 U/L Aspartate Amino Transf (AST/SGOT) 20 U/L Alanine Aminotransferase (ALT/SGPT) 32 U/L Total Bilirubin 0.1 MG/DL Sodium Level 144 MEQ/L Potassium Level 4.0 MEQ/L Chloride Level 110 MEQ/L Carbon Dioxide Level 27.2 MEQ/L Anion Gap 7 MEQ/L Estimat Glomerular Filtration Rate 147 ML/MIN Total Creatine Kinase 101 U/L Creatine Kinase MB 0.5 NG/ML Troponin I LESS THAN 0.02 NG/ML Lipase 136 U/L D-Dimer Quantitative (PE/DVT) 0.33 MG/L FEU Urine Color YELLOW Urine Turbidity CLOUDY Urine pH 6.0 Urine Specific [place] 1.053 Urine Protein NEG mg/dL Urine Glucose (UA) NEG mg/dL Urine Ketones NEG mg/dL Urine Occult Blood SMALL Urine Nitrite NEG Urine Bilirubin NEG Urine Urobilinogen LESS THAN 2 mg/dL Urine Leukocyte Esterase SMALL Urine RBC 7 /hpf Urine WBC 3 /hpf Urine Squamous Epithelial Cells 27 /hpf Urine Bacteria OCC /hpf Urine Mucus FEW /lpf Microscopic Urinalysis Comment CULT NOT INDICATED MDM Medical Decision Making Medical Screen Exam Complete: Yes Emergency Medical Condition: Yes Medical Record Reviewed: Yes Differential Diagnosis Abdominal pain. Esophagitis. Gastritis. Gallbladder disease. Narrative Course Patient is in pain but medically stable at time of exam. Labs ordered including CBC, CMP, lipase, urinalysis, and urine . EKG is ordered. CT of the abdomen and pelvis with IV contrast as well as ultrasound of the gallbladder ordered. IV access is obtained the patient is given 2 mg morphine IV, 4 mg Zofran ODT p.o., 20 mg famotidine IV, 1000 mL of normal saline bolus IV, and GI cocktail p.o. EKG showed sinus rhythm with frequent PVCs. Patient complaint of chest pain after her EKG, so cardiac labs are ordered. D- dimer is added as well. Gallbladder ultrasound is unremarkable per radiologist. CBC is unremarkable except for some mild anemia with a hemoglobin of 10.7 and hematocrit of 34.2. Chemistries are unremarkable. First troponin is less than 0.02. Urinalysis is concentrated with a specific gravity 1.053, there is a small amount of blood, but no signs of acute infection. D-dimer is negative. CT of the abdomen and pelvis was negative for acute process per radiologist Patient is reassessed and felt to be improved. Patient is felt to have suffered from esophageal reflux with possible esophageal spasm. Patient will be sent home on omeprazole 40 mg daily for the next 30 days. Patient also given Magic mouthwash to take as needed for recurrent acute epigastric pain. Recommend the patient follow-up with her primary care physician Diagnosis Primary Impression: Reflux esophagitis Referrals: Primary Care Physician Patient Instructions: Diet for Stomach Ulcers and Gastritis (ED), Esophageal Spasm (ED), General Instructions Additional Instructions: Gallbladder ultrasound is unremarkable per radiologist. CBC is unremarkable except for some mild anemia with a hemoglobin of 10.7 and hematocrit of 34.2. Chemistries are unremarkable. First troponin is less than 0.02. Urinalysis is concentrated with a specific gravity 1.053, there is a small amount of blood, but no signs of acute infection. D-dimer is negative. CT of the abdomen and pelvis was negative for acute process per radiologist Patient is reassessed and felt to be improved. Patient is felt to have suffered from esophageal reflux with possible esophageal spasm. Patient will be sent home on omeprazole 40 mg daily for the next 30 days. Patient also given Magic mouthwash to take as needed for recurrent acute epigastric pain. Recommend the patient follow-up with her primary care physician Med/Other Pt SpecificInfo: Prescription(s) given Disposition: DISCHARGE HOME Condition: Stable Jose Ruby Apr 28, 2018 15:48
[2018-04-28 15:56] VITALS: O2SAT 98
[2018-04-28 16:07] LABS: AUTOMATED NEUTROPHIL # 3.6 TH/MM3 (1.8-7.7); BASOPHIL % 0.3 % (0.0-2.0); EOSINOPHIL # 0.1 TH/MM3 (0-0.4); EOSINOPHIL % 1.1 % (0.0-4.0); HEMATOCRIT 34.2 % (35.0-46.0); HEMOGLOBIN 10.7 GM/DL (11.6-15.3); LYMPH % 35.9 % (9.0-44.0); LYMPHOCYTE # 2.3 TH/MM3 (1.0-4.8); MEAN CELL VOLUME 75.1 FL (80.0-100.0); MEAN CORPUSCULAR HEMOGLOBIN 23.5 PG (27.0-34.0); MEAN CORPUSCULAR HGB CONC 31.2 % (32.0-36.0); MEAN PLATELET VOLUME 8.9 FL (7.0-11.0); MONO % 7.2 % (0.0-8.0); MONOCYTE # 0.5 TH/MM3 (0-0.9); NEUT % 55.5 % (16.0-70.0); PLATELET COUNT 312 TH/MM3 (150-450); RED BLOOD COUNT 4.55 MIL/MM3 (4.00-5.30); RED CELL DISTRIBUTION WIDTH 16.5 % (11.6-17.2); WHITE BLOOD COUNT 6.5 TH/MM3 (4.0-11.0)
[2018-04-28 16:26] LABS: ALBUMIN 3.2 GM/DL (3.4-5.0); ALT (GPT) 32 U/L (10-53); AST (GOT) 20 U/L (15-37); BICARBONATE 27.2 MEQ/L (21.0-32.0); BLOOD UREA NITROGEN 9 MG/DL (7-18); CALCIUM 8.6 MG/DL (8.5-10.1); CHLORIDE 110 MEQ/L (98-107); GLOMERULAR FILTRATION RATE 147 ML/MIN (>89); GLUCOSE,RANDOM 89 MG/DL (74-106); SODIUM (NA) 144 MEQ/L (136-145)
[2018-04-28 16:28] LABS: ALKALINE PHOSPHATASE 95 U/L (45-117); TOTAL BILIRUBIN ADULT 0.1 MG/DL (0.2-1.0); TOTAL PROTEIN 7.3 GM/DL (6.4-8.2)
[2018-04-28 17:02] VITALS: BP 114/55; PULSE 86; RESP 17; O2SAT 100
[2018-04-28] MEDS ORDERED: IOHEXOL 350 MG/ML 10 ML VIAL (for RAD DIAG) IVCONTRAST ONE (17:02)
--- NOTE | 2018-04-28 17:14 | RADRPT ---
EXAM DATE: 04/28/2018 4:45 PM EDT AGE/SEX: 27 years / Female INDICATIONS: Right upper quadrant pain. CLINICAL DATA: This is the patient's initial encounter. Patient reports that signs and/or symptoms h ave been present for 2 days and indicates a pain score of 10/10. MEDICAL/SURGICAL HISTORY: Hypertension. Diabetes. Depression. Tonsillitis. section. COMPARISON: [facility] [place], CT ABDOMEN & PELVIS W CONTRAST, 04/28/2018. . MEASUREMENTS: Liver:__ 25.0 cm. Common Bile Duct:__ Nonvisualized. FINDINGS: Liver: Normal echogenicity without focal lesion or ductal dilation. Portal Vein: Hepatopedal flow seen in portal vein. Common Duct: Not visualized Gallbladder: Demonstrates no wall thickening or pericholecystic fluid. No stones visualized. The gal lbladder was only seen in the left lateral decubitus position. Pancreas: Not well visualized. Right Kidney: Normal echotexture and cortical thickness. No mass or hydronephrosis. Other: None. CONCLUSION: 1. The gallbladder appears grossly normal. It was only seen in the left lateral decubitus position. 2. The common bile duct and pancreas were not well-visualized. Electronically signed by: Wing Weiner MD 04/28/2018 5:12 PM EDT
[2018-04-28 17:40] LABS: TROPONIN I LESS THAN 0.02 NG/ML (0.02-0.05)
--- NOTE | 2018-04-28 17:44 | RADRPT ---
EXAM DATE: 04/28/2018 5:01 PM EDT AGE/SEX: 27 years / Female INDICATIONS: Epigastric pain. CLINICAL DATA: This is the patient's initial encounter. Patient reports that signs and symptoms have been present for 1 day and indicates a pain score of 9/10. MEDICAL/SURGICAL HISTORY: Hypertension. Diabetes. section. ORAL CONTRAST: No oral contrast ingested. RADIATION DOSE: 16.40 CTDI (mGy) ; Patient body habitus COMPARISON: No prior exams available for comparison. TECHNIQUE: Multiple contiguous axial images were obtained through the abdomen and pelvis following b olus infusion of 100 ml Omnipaque 350 (iohexol) nonionic water-soluble contrast as a single exam do se. No oral contrast ingested. Using automated exposure control and adjustment of the mA and/or kV a ccording to patient size, radiation dose was kept as low as reasonably achievable to obtain optimal d iagnostic quality images. DICOM format image data is available electronically for review and compari son. FINDINGS: Lower Lungs: The visualized lower lungs are clear. Liver: The liver has a homogeneous density without space-occupying lesion. There is no dilation of th e biliary tree. Spleen: Homogeneous density without enlargement. Pancreas: Unremarkable without mass or calcification. Kidneys: Normal in size and shape. No evidence of mass or hydronephrosis. Adrenal Glands: Unremarkable. Aorta: The aorta and proximal iliac vessels are grossly unremarkable without aneurysmal dilation. Bowel/Mesentery: The bowel loops are grossly unremarkable. The cecum and sigmoid colon have a normal configuration. The appendix is not seen. Inflammatory change around the cecum and appendix is not s een. Abdominal Wall: Intact. Retroperitoneum: No evidence of adenopathy in the retrocrural, para-aortic, or deep pelvic regions. Bladder: Contours are smooth. Reproductive Organs: No abnormal masses or calcifications seen. Inguinal: The inguinal region is unremarkable without evidence of adenopathy. Bony Structures: Unremarkable. CONCLUSION: Negative CT of the abdomen and pelvis. Electronically signed by: Wing Weiner MD 04/28/2018 5:43 PM EDT
[2018-04-28 18:10] LABS: BACTERIA, URINE OCC /hpf; BILIRUBIN, URINE NEG (NEG); BLOOD, URINE SMALL (NEG); GLUCOSE,URINE NEG (NEG); KETONE, URINE NEG (NEG); MUCUS URINE FEW /lpf (OCC); NITRITE,URINE NEG (NEG); SQUAMOUS EPITHELIAL CELL URINE 27 /hpf (0-5); URINE COLOR YELLOW (YELLW/STRAW); URINE LEUKOCYTE ESTERASE SMALL (NEG)
[2018-04-28] MEDS ORDERED: MAGICADU2 SWISH-SWAL (18:27)
[2018-04-28] MEDS ORDERED: OMEP40CA2 PO (18:27)
[2018-04-28 18:33] VITALS: BP 115/68
--- NOTE | 2018-04-29 09:13 | EKG ---
Date Performed: 04/28/2018 Time Performed: 16:05:51 PTAGE: 27 years EKG: Sinus rhythm WITH FREQUENT VENTRICULAR PREMATURE COMPLEXES ABNORMAL RHYTHM ECG Since the PREVIOUS TRACING , no significant change noted PREVIOUS TRACIN06/07/2017 11.46 DOCTOR: Kit Dong Interpretating Date/Time 04/29/2018 09:12:40
== END 2018-04-28 18:46 | disposition home or self-care (01) ==
LOC: NEPC 15:27
DX: D64.9 Anemia, unspecified (principal); R94.31 Abnormal electrocardiogram [ECG] [EKG]; K21.0 Gastro-esophageal reflux disease with esophagitis; F32.9 Major depressive disorder, single episode, unspecified; I10 Essential (primary) hypertension; E11.9 Type 2 diabetes mellitus without complications; F39 Unspecified mood [affective] disorder; Z88.0 Allergy status to penicillin
CPT/HCPCS: 74177; 76705; 80053; 81001; 82550; 82552; 83690; 84484; 84703; 85025; 85379; 93005; 96361; 96374; 96375; 99285; J2270; J7030; Q9967